=== PATIENT | female | born 1945 | race Caucasian/White ===

== ENCOUNTER 2016-11-08 21:54 | Inpatient (IN) | payer MEDICARE, BC ==
[~2016-11-08] VITALS: Ht 165.1 cm; Wt 82.4 kg
[~2016-11-08 21:54] MED LIST: AMLO-218 PO; ASPI-664 PO; ERGO500014 PO; FENO145T25 PO; FOLI-49 PO; METO50TA16 PO; RIVA15TA PO; SIMV20TA PO
[2016-11-08] MEDS ORDERED: ASPIRIN 325 MG TAB PO ONE (23:00)
[2016-11-08] MEDS ORDERED: FUROSEMIDE 40 MG INJ IV ONE (23:00)
[2016-11-08] MEDS ORDERED: ENALAPRILAT 1.25 MG INJ IV ONE (23:00)
[2016-11-08 23:04] LABS: ADD SCAN DIFF NO
[2016-11-08 23:12] LABS: ABNORMAL IP MESSAGE 1; HEMATOCRIT 36.3 % (37.0-47.0); HEMOGLOBIN 11.4 g/dl (12.0-16.0); MEAN CORPUSCULAR HEMOGLOBIN 30.2 pg (29.0-33.0); MEAN CORPUSCULAR HGB CONC 31.4 g/dl (32.0-37.0); MEAN PLATELET VOLUME 11.5 fl (7.4-10.4); PLATELET COUNT 150 10^3/UL (140-415); RED BLOOD COUNT 3.78 10^6/ul (4.20-5.40); RED CELL DISTRIBUTION WIDTH 14.1 % (11.5-14.5); WHITE BLOOD COUNT 4.6 10^3/ul (4.8-10.8)
[2016-11-08] MEDS ORDERED: CLON0.2T5 PO (23:18)
[2016-11-08] MEDS ORDERED: ISOS40TA15 PO (23:19)
[2016-11-08] MEDS ORDERED: METO10TA6 PO (23:20)
[2016-11-08] MEDS ORDERED: NAPR-688 PO (23:20)
[2016-11-08] MEDS ORDERED: PRAM0.25 PO (23:21)
[2016-11-08] MEDS ORDERED: ATOR40TA68 PO (23:21)
[2016-11-08] MEDS ORDERED: WARF4TAB52 PO (23:21)
--- NOTE | 2016-11-08 23:21 | ERA ---
ER Documentation Chief Complaint Date/Time DATE: 11/08/16 TIME: 23:14 Chief Complaint shortness of breath, denies chest pain, sp cabg x 4 vessels 2007 HPI 71-year-old woman presents for shortness of breath, increased orthopnea, increased peripheral edema, paroxysmal nocturnal dyspnea 2 weeks although worse over the last 3 days. She has had no fever or chills, no chest pain, no vomiting or diarrhea, no headache or blurry vision. ROS All systems reviewed and are negative except as per history of present illness. Medications Home Meds Reported Medications Hydralazine Hcl* (Hydralazine Hcl*) 50 Mg Tab, 50 MG PO TID, #90 TAB 11/08/16 Ranolazine* (Ranexa*) 500 Mg Tab.sr.12h, 500 MG PO Q12, TAB 11/08/16 Ezetimibe* (Zetia*) 10 Mg Tablet, 10 MG PO DAILY, TAB 11/08/16 Pramipexole* (Pramipexole*) 0.25 Mg Tablet, 0.25 MG PO TID, TAB 11/08/16 Atorvastatin* (Atorvastatin*) 40 Mg Tablet, 40 MG PO QHS, #30 TAB 11/08/16 Warfarin Sodium* (Warfarin Sodium*) 4 Mg Tablet, 4 MG PO DAILY, TAB 11/08/16 Naproxen* (Naproxen*) 500 Mg Tablet, 500 MG PO BID, TAB 11/08/16 Metolazone* (Metolazone*) 10 Mg Tablet, 10 MG PO DAILY, TAB 11/08/16 Isosorbide Dinitrate* (Isordil*) 40 Mg Tablet, 40 MG PO BID, TAB 11/08/16 Clonidine Hcl* (Clonidine Hcl*) 0.2 Mg Tablet, 0.2 MG PO Q8 Y for PRN, TAB 11/08/16 Metoprolol Succinate* (Toprol XL*) 50 Mg Tab.er.24h, 50 MG PO DAILY, TAB 02/17/15 Fenofibrate Nanocrystallized* (Tricor*) 145 Mg Tablet, 145 MG PO DAILY 05/15/11 Discontinued Reported Medications Aspirin* (Aspirin* EC) 81 Mg Tablet.dr, 81 MG PO DAILY, TAB 02/17/15 Ergocalciferol* (Drisdol* (Vitamin D2)) 50,000 Unit Capsule, 71514 UNIT PO EVERY 14 DAYS, CAP 02/17/15 Folic Acid* (Folic Acid*) 1 Mg Tablet, 1 MG PO DAILY 05/15/11 Simvastatin* (Zocor*) 20 Mg Tablet, 20 MG PO DAILY 05/15/11 Discontinued Scripts Amlodipine Besylate* (Norvasc*) 10 Mg Tab, 10 MG PO DAILY, #20 Prov:KDDIOGENES IQBALY REHAB TRAINER 02/20/15 Rivaroxaban* (Xarelto*) 15 Mg Tablet, 15 MG PO WITH BREAKFAST, #20 Prov:SHERYLALBAN REHAB TRAINER 02/20/15 Allergies Allergies: Coded Allergies: No Known Allergy (Verified , 11/08/16) PMhx/Soc Anxiety, chronic kidney disease, coronary artery disease status post coronary bypass graft, DVT, anemia, hypertension, atrial fibrillation, pulmonary hypertension, congestive heart failure History of Surgery: Yes (s/p LAD rupture, cardicac tamponade and CABG) Anesthesia Reaction: No Hx Neurological Disorder: Yes (SOMETIMES SHE FEELS DIZZY AND ALMOST WANTS TO PASSED OUT) Hx Respiratory Disorders: No Hx Cardiac Disorders: Yes (HTN,CABG-2007,HIGH CHOLESTEROL) Hx Psychiatric Problems: No Hx Miscellaneous Medical Probl: Yes (cardiac arrest, osteoprosis, htn) Hx Alcohol Use: No Hx Substance Use: No Hx Tobacco Use: No Smoking Status: Never smoker FmHx Family History: No diabetes Physical Exam Vitals Vital Signs Date Time Temp Pulse Resp B/P Pulse Ox O2 Delivery O2 Flow Rate FiO2 11/08/16 22:54 Nasal Cannula 3.0 11/08/16 21:59 98.3 96 20 189/91 94 Physical Exam GENERAL: Well-developed, well-nourished, well-hydrated, in no apparent distress , looks nontoxic in appearance HEENT: Moist mucous membranes, pink conjunctiva, no cervical spine tenderness or step-off deformities, no goiter, no jaundice or icterus, extraocular movements intact without pain. No submandibular induration, and no pharyngeal erythema NEURO: Alert and oriented 3, cranial nerves II through XII intact bilaterally, pupils equal round reactive to light, no focal deficits or facial asymmetry, sensation intact distally Strength 5/5 in upper and lower extremities bilaterally CARDIAC: Regular rate and rhythm, no murmurs rubs or gallops LUNGS: Crackles bilaterally, no wheezing or stridor ABDOMEN: Soft nontender, no guarding, no rigidity, no rebound, no psoas sign no obturator sign. Normoactive bowel sounds SKIN: Warm and dry to touch, no abrasions, contusions, or hematomas, no lacerations, no ecchymosis, no target lesions, and without ulcers EXTREMITIES: 3+ pitting edema in the lower extremities bilaterally calves are bilaterally symmetrical, no Homans sign, no popliteal cord sign. Distal pulses equal and bilateral PSYCH: Normal affect without agitation or irritability Result Diagram: 11/08/16223911/08/162239 Results 24 hrs Laboratory Tests Test 11/08/16 22:40 White Blood Count 4.610^3/ul Red Blood Count 3.7810^6/ul Hemoglobin 11.4g/dl Hematocrit 36.3% Mean Corpuscular Volume 96.0fl Mean Corpuscular Hemoglobin 30.2pg Mean Corpuscular Hemoglobin Concent 31.4g/dl Red Cell Distribution Width 14.1% Platelet Count 78158^3/UL Mean Platelet Volume 11.5fl Neutrophils % 91.0% Lymphocytes % 8.0% Monocytes % 1.0% Neutrophils # 4.210^3/ul Lymphocytes # 0.410^3/ul Monocytes # 0.010^3/ul Differential Comment MANUAL DIFF Platelet Estimate PLT APPEAR ADEQUATE Large Platelets FEW Sodium Level 140mmol/L Potassium Level 4.8mmol/L Chloride Level 100mmol/L Carbon Dioxide Level 25mmol/L Anion Gap 20 Blood Urea Nitrogen 34mg/dl Creatinine 2.07mg/dl Glucose Level 137mg/dl Calcium Level 9.7mg/dl Total Bilirubin 0.9mg/dl Direct Bilirubin 0.00mg/dl Indirect Bilirubin 0.9mg/dl Aspartate Amino Transf (AST/SGOT) 30IU/L Alanine Aminotransferase (ALT/SGPT) 24IU/L Alkaline Phosphatase 106IU/L Troponin I 0.063ng/ml B-Type Natriuretic Peptide 68463HL/ML Total Protein 7.8g/dl Albumin 4.4g/dl Globulin 3.40g/dl Albumin/Globulin Ratio 1.29 Lipase 159U/L Current Medications Medications (Trade) Dose Ordered Sig/Glenny Route PRN Reason Start Time Stop Time Status Last Admin Dose Admin Furosemide (Lasix) 80 mg ONCE ONCE IV 11/08/16 23:00 11/08/16 23:01 DC 11/08/16 23:16 Enalaprilat (Vasotec Iv) 1.25 mg ONCE ONCE IV 11/08/16 23:00 11/08/16 23:01 DC 11/08/16 23:16 Aspirin (Aspirin) 325 mg ONCE ONCE PO 11/08/16 23:00 11/08/16 23:01 DC 11/08/16 23:16 Procedures/MDM IV line was established patient was placed on acute care registered nurse rhythm strip revealed an irregular narrow complex rhythm at about 80 bpm. Patient was afebrile. EKG performed, read by me revealed an atrial fibrillation at 82 bpm, normal axis , narrow QRS complex, no concerning ST elevations or depressions noted. One view chest x-ray performed, read by me there are sternotomy wires and cardiomegaly with bilateral pleural effusions and bilateral vascular pulmonary congestion. Overall consistent with decompensated heart failure, no acute infiltrates. I administered aspirin 325 mg p.o. for cardioprotective measures, enalapril 1.25 mg IV for hypertension, furosemide 80 mg IV 1 for diuresis, nitroglycerin 0.4 mg sublingual 2 Cardiac critical Care: Time: 37 minutes, this was time separate from other procedures. Treatments/Evaluations: Close monitoring and treatment of unstable vital signs, cardiorespiratory, and neurologic status, while maintaining tight balance of fluid, respiratory, and cardiac interventions. CBC reveals leukopenia 4.6, electrolytes revealed dehydration with a BUN/ creatinine of 34/2, liver function tests are normal, troponin was negative. BNP over 17,000. Patient admitted to telemetry setting. Departure Diagnosis: Primary Impression: CHF (congestive heart failure) Qualified Code: I50.21 - Acute systolic congestive heart failure Additional Impressions: Pulmonary hypertension Hypertension Qualified Code: I10 - Essential hypertension Peripheral edema Condition: Serious OWEN BUCKLEY MD Nov 08, 2016 23:21
[2016-11-08] MEDS ORDERED: RANO500T2 PO (23:22)
[2016-11-08] MEDS ORDERED: EZET10TA3 PO (23:22)
[2016-11-08] MEDS ORDERED: HYDR-3672 PO (23:23)
[2016-11-08 23:30] LABS: ALBUMIN 4.4 g/dl (3.3-4.9)
[2016-11-08] MEDS ORDERED: NITROGLYCERIN (SL) 0.4 MG TAB SL ONE (23:30)
[2016-11-08 23:31] LABS: POTASSIUM 4.8 mmol/L (3.5-5.1)
[2016-11-08 23:33] LABS: ALBUMIN/GLOBULIN RATIO 1.29; BILIRUBIN,INDIRECT 0.9 mg/dl (0-1.1); BILIRUBIN,TOTAL 0.9 mg/dl (0.2-1.3); CALCIUM 9.7 mg/dl (8.4-10.2); CREATININE 2.07 mg/dl (0.44-1.00); TOTAL PROTEIN 7.8 g/dl (6.1-8.1)
--- NOTE | 2016-11-08 23:35 | RADRPT ---
PROCEDURE: XR Chest. CLINICAL INDICATION: Abdominal pain. TECHNIQUE: Single frontal view of the chest was obtained COMPARISON: Chest dated 02/17/2015. FINDINGS: Cardiomegaly and tortuous thoracic aorta with mild atherosclerotic calcifications in the thoracic ao rta. Pulmonary vascular ingestion and patchy air space disease is new. New bilateral mild to moder ate pleural effusions, left greater than right. No evident pneumothorax. IMPRESSION: 1. Mild to moderate failure. 2. Bilateral mild to moderate pleural effusions and new, left greater than right. RPTAT: [facility] Physician Lona Date Time Electronically viewed and signed by Physician Lona on 11/08/2016 23:35 RS/
[2016-11-08 23:38] LABS: TROPONIN-I 0.063 ng/ml (0.00-0.12)
[2016-11-09] VITALS (14 sets, daily range): BP systolic 104–195; BP diastolic 53–89; PULSE 63–89; RESP 18–20; Ht 165.1 cm; Wt 82.4 kg
[2016-11-09 00:31] LABS: LYMPHOCYTES # 0.4 10^3/ul (0.8-2.9); NEUTROPHIL # 4.2 10^3/ul (1.6-7.5); PLATELET ESTIMATE PLT APPEAR ADEQUATE
--- NOTE | 2016-11-09 00:59 | HP ---
Date/Time of Note Date/Time of Note DATE: 11/09/16 TIME: 00:55 Assessment/Plan VTE Prophylaxis VTE Prophylaxis Intervention: ambulation, anti-embolic stocking VTE Contraindication Reason: peripheral vascular disease Lines/Catheters IV Catheter Type (from Nrsg): Saline Lock Central line still needed: No Urinary Cath still in place: No Reason Cath still needed: urinary retention Assessment/Plan Assessment/Plan 1. systolic and diastolic hear failure with acute exacerbation . 2. History of coronary artery disease with coronary artery bypass grafting. 3. History of cardiac arrest, status post ruptured left anterior descending. 4. History of cardiac tamponade. 5. Hypertension-resistant with episodes of crisis . 6. Hyperlipidemia. 7. Atrial fibrillation, rate controlled. 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 Cont'd Hospitalization Reason: chf HPI/ROS Admit Date/Time Admit Date/Time Severe sob.Worsened last 3 days. Compleate w/u by last month. Noncompliance confessed.Discussed with the daughter to communicate more frequently.Nov 08, 2016 at 23:12 Hx of Present Illness After diuresis in ER significant improvement of BP and sob. ROS Subjective hx not possible: pt critical status, other (now less critical.) Constitutional: chills, fatigue, nausea, poor po, weight change (gained 8 lb. ) Eyes: redness (after hydralyzine.), No discharge, No no complaints, No other, No pain, No visual change ENT: No bleeding, No congestion, No discharge, No dysphagia, No no complaints, No other, No pain, No sore throat Respiratory: cough, shortness of breath, wheezing (improved.), No no complaints, No other, No pain, No pleuritic pain, No sputum Cardiovascular: chest pain, edema, lightheadedness, orthopenea, palpitations, paroxysmal nocturnal dyspnea, No no complaints, No other Gastrointestinal: constipation, flatus, nausea, No blood, No decreased appetite, No diarrhea, No no complaints, No other, No pain, No passing stool, No vomiting Genitourinary: flank pain, No bleeding, No discharge, No dysuria, No hematuria, No no complaints, No other Musculoskeletal: back pain, bone/joint pain, neck pain, No no complaints, No other, No restricted range of motion, No swelling Skin: pruritis, No bruising, No erythema, No laceration, No no complaints, No other, No rash , No skin lesions Neurologic: dizziness, headache, No confusion, No focal-weakness, No no complaints, No other, No seizure, No syncope Endocrine: polydypsia, temp intolerance, No dry skin, No no complaints, No other, No polyuria, No weight change Lymphatic: No adenopathy, No lymphadema, No no complaints, No other, No tender nodes Psychological: anxiety, depression, other (memory impairment.), No confusion, No nl mood/affect, No no complaints, No suicidal Immunologic: pruritis, No immunodeficiency, No no complaints, No other, No rhinitis, No urticaria PMH/Family/Social Past Medical History Medical History: angina, colitis, congestive heart failure, coronary artery disease, deep vein thrombosis, diabetes, GERD, high cholesterol, hypertension, renal disease, urinary tract infection Past Surgical History Past Surgical Hx: angioplasty, coronary bypass surgery Family History Significant Family History: heart disease, diabetes, hypertension, lung disease Social History Alcohol Use: none Smoking Status: Never smoker Drug Use: none Exam/Review of Systems Vital Signs Vitals Vital Signs Date Time Temp Pulse Resp B/P Pulse Ox O2 Delivery O2 Flow Rate FiO2 11/09/16 00:36 180/89 Nasal Cannula 11/09/16 00:33 2.0 11/08/16 23:44 79 22 100 11/08/16 21:59 98.3 Exam Constitutional: alert, distress, frail, oriented, No non-verbal, No other, No well developed Psych: anxiety, depression, No confusion, No nl mood/affect, No no complaints, No other, No suicidal Head: atraumatic, No hematomas, No lacerations, No normocephalic, No other Eyes: EOMI, PERRL, nl lids, other (pale conjunctivas.) ENMT: nl nasal mucosa & septum, tympanic membranes Neck: bruits, jvd, nuchal rigidity, No masses, No non-tender, No other, No supple, No thyromegaly Respiratory: congested cough, crackles/rales, diminished breath sounds, labored breathing, tactile fremitus, No clear to auscultation, No intercostal retraction, No normal air movement, No other, No respirations, No wheezing Cardiovascular: bruits, edema, irregular rhythm, systolic murmur, No S3, No S4, No diastolic murmur, No gallop, No jugular venous distention ( JVD), No murmurs/extra sounds, No nl pulses, No other, No regular rate and rhythm, No rub Gastrointestinal: bowel sounds, distended, soft, No ascites, No firm, No hepatomegaly, No mass, No nl liver, spleen, No non- tender, No other, No rebound or guarding, No splenomegaly, No surgical scars, No tender Genitourinary - Female: other (refused. No complains.) Extremities: calf tenderness, edema, other (erythematouse rash of the tibial area left more than right with irregular borders jitendra size.), pitting pedal edema Neurological: HUMANITIES INSTRUCTOR II-XII intact (except cn#12.), DTR's symmetric, confused, numbness, other (decreased memory, anxious.) Labs Result Diagram: 11/08/16223911/08/16 2240 Medications Medications Current Medications Atorvastatin Calcium (Lipitor) 40 mg QHS PO ; Start 11/09/16 at 21:00; Status UNV Clonidine (Catapres) 0.2 mg Q8 PRN PO PRN; Start 11/09/16 at 01:00; Status UNV EZETIMIBE (Zetia) 10 mg DAILY PO ; Start 11/09/16 at 09:00; Status UNV Fenofibrate (Tricor) 145 mg DAILY PO ; Start 11/09/16 at 09:00; Status UNV Hydralazine HCl (Apresoline) 50 mg TID PO ; Start 11/09/16 at 09:00; Status UNV Metolazone (Zaroxolyn) 10 mg BID PO ; Start 11/09/16 at 01:00; Status UNV Metoprolol Succinate (Toprol Xl) 50 mg DAILY PO ; Start 11/09/16 at 09:00; Status UNV Ranolazine (Ranexa) 500 mg Q12 PO ; Start 11/09/16 at 01:00; Status UNV Warfarin Sodium (Coumadin) 4 mg DAILY PO ; Start 11/09/16 at 09:00; Status UNV Losartan Potassium (Cozaar) 50 mg BID PO ; Start 11/09/16 at 01:00; Status UNV Pantoprazole (Protonix Tab) 40 mg DAILY@06 PO ; Start 11/09/16 at 06:00; Status UNV LAURA DENT MD Nov 09, 2016 00:59
[2016-11-09] MEDS ORDERED: METOLAZONE 10 MG TAB PO SCH (01:00)
[2016-11-09] MEDS: ALBUTEROL/IPRATROPIUM (NEB) 3 ML AMP HHN SCH ×4 (01:24→19:38)
[2016-11-09] MEDS: LOSARTAN 50 MG TAB PO SCH ×2 (02:27→08:56)
[2016-11-09] MEDS: METOLAZONE 5 MG TAB PO SCH ×2 (02:27→08:58)
[2016-11-09] MEDS: RANOLAZINE (SR) 500 MG TAB PO SCH ×3 (02:27→20:57)
[2016-11-09 08:15] LABS: INR 2.67; POTASSIUM 4.6 mmol/L (3.5-5.1); PROTIME 28.8 Sec (12.2-14.2); PT RATIO 2.3
[2016-11-09 08:18] LABS: CREATININE 2.06 mg/dl (0.44-1.00); D-DIMER 305.27 ng/ml (<460)
[2016-11-09 08:19] LABS: CALCIUM 9.3 mg/dl (8.4-10.2)
[2016-11-09 08:30] LABS: TROPONIN-I 0.094 ng/ml (0.00-0.12)
[2016-11-09 08:41] LABS: IRON 46 ug/dl (35-150)
[2016-11-09 08:49] LABS: THYROID STIMULATING HORMONE 1.46 MIU/L (0.465-4.680)
[2016-11-09 08:51] LABS: TOTAL IRON BINDING CAPACITY 344 ug/dl (241-421)
[2016-11-09] MEDS: FENOFIBRATE 145 MG TAB PO SCH (08:57)
[2016-11-09] MEDS: EZETIMIBE 10 MG TAB PO SCH (08:58)
[2016-11-09] MEDS: PANTOPRAZOLE (EC) 40 MG TAB PO SCH (08:59)
[2016-11-09] MEDS ORDERED: METOPROLOL (XL) 50 MG TAB PO SCH ×2 (09:00)
[2016-11-09] MEDS ORDERED: WARFARIN 2 MG TAB PO SCH (09:00)
--- NOTE | 2016-11-09 11:17 | RADRPT ---
PROCEDURE: US Lower extremity Venous. CLINICAL INDICATION: Bilateral lower extremity swelling TECHNIQUE: Multiple sonographic images of the bilateral lower extremity deep venous system was obt ained utilizing grayscale, color-flow, compressive sonography and doppler imaging with augmentation. The images were reviewed on a PACS workstation. COMPARISON: None. FINDINGS: There is normal compressibility and flow within the bilateral common femoral, superficial femoral , posterior tibial and popliteal veins. RPTAT: AA IMPRESSION: No sonographic evidence for deep venous thrombosis. .Arnoldo Suresh MD, MD Date Time Electronically viewed and signed by .Arnoldo Suresh MD, on 11/09/2016 11:17 .S/
[2016-11-09 11:42] LABS: ADD UMIC YES; URINE BILIRUBIN (Dip) NEGATIVE (NEGATIVE); URINE BLOOD (Dip) NEGATIVE (NEGATIVE); URINE COLOR LT. YELLOW (YELLOW); URINE GLUCOSE (Dip) NEGATIVE (NEGATIVE); URINE KETONES (Dip) NEGATIVE (NEGATIVE); URINE LEUKOCYTE ESTERASE (Dip) NEGATIVE (NEGATIVE); URINE NITRITE (Dip) NEGATIVE (NEGATIVE); URINE TOTAL PROTEIN (Dip) 1+ (NEGATIVE); URINE UROBILINOGEN (Dip) 0.2 E.U./dL (0.1-1.0)
[2016-11-09 11:52] LABS: BACTERIA,URINE RARE; URINE RBCS 0-2 /HPF (0)
[2016-11-09 11:53] LABS: BARBITURATES Negative (NEGATIVE)
[2016-11-09 11:58] LABS: BENZODIAZEPINES Negative (NEGATIVE); CANNABINOIDS Negative (NEGATIVE); COCAINE Negative (NEGATIVE); OPIATES Negative (NEGATIVE)
--- NOTE | 2016-11-09 12:48 | PN ---
Date/Time of Note Date/Time of Note DATE: 11/09/16 TIME: 12:47 Assessment/Plan VTE Prophylaxis VTE Prophylaxis Intervention: ambulation, anti-embolic stocking VTE Contraindication Reason: peripheral vascular disease Lines/Catheters IV Catheter Type (from Nrsg): Saline Lock Urinary Cath still in place: No Assessment/Plan Assessment/Plan 1. systolic and diastolic hear failure with acute exacerbation . 2. History of coronary artery disease with coronary artery bypass grafting. 3. History of cardiac arrest, status post ruptured left anterior descending. 4. History of cardiac tamponade. 5. Hypertension-resistant with episodes of crisis . 6. Hyperlipidemia. 7. Atrial fibrillation, rate controlled. 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 Subjective 24 Hr Interval Summary Free Text/Dictation improved sob. Constitutional: chills, disoriented, poor po, requiring O2, No diaphoresis, No febrile, No improved, No no complaints, No other, No requiring IVF Eyes: No discharge, No no complaints, No other, No pain, No redness, No visual change ENT: congestion, dysphagia, pain, No bleeding, No discharge, No no complaints, No other, No sore throat Respiratory: cough, pleuritic pain, shortness of breath, No no complaints, No other, No pain, No sputum, No wheezing Cardiovascular: chest pain, edema, lightheadedness, orthopenea, palpitations, paroxysmal nocturnal dyspnea, No no complaints, No other Gastrointestinal: constipation, decreased appetite, pain Genitourinary: dysuria, flank pain Musculoskeletal: back pain, neck pain, No bone/joint pain, No no complaints, No other, No restricted range of motion , No swelling Neurologic: confusion, dizziness, No focal-weakness, No headache, No no complaints, No other, No seizure, No syncope Endocrine: dry skin Psychological: anxiety, confusion, depression, No nl mood/affect, No no complaints, No other, No suicidal Exam/Review of Systems Vital Signs Vitals Vital Signs Date Time Temp Pulse Resp B/P Pulse Ox O2 Delivery O2 Flow Rate FiO2 11/09/16 12:04 63 11/09/16 11:34 98.6 20 104/54 96 11/09/16 09:58 Nasal Cannula 2.0 Intake and Output 11/08/16 11/08/16 11/09/16 14:59 22:59 06:59 Intake Total 100 ml Output Total 2000 ml Balance -1900 ml Exam Constitutional: alert, distress, frail, obese, oriented, No non-verbal, No other, No well developed Psych: anxiety, depression, No confusion, No nl mood/affect, No no complaints, No other, No suicidal Head: atraumatic Eyes: EOMI, PERRL, No fundi, disc, No icteric, No nl conjunctiva, No nl lids, No nl sclera, No other ENMT: mucosa pink and moist, nl nasal mucosa & septum, tympanic membranes Neck: bruits, jvd, nuchal rigidity Respiratory: congested cough, diminished breath sounds, intercostal retraction , No clear to auscultation, No crackles/rales, No labored breathing, No normal air movement, No other, No respirations, No tactile fremitus, No wheezing Cardiovascular: bruits, edema, irregular rhythm, nl pulses, regular rate and rhythm, systolic murmur, No S3, No S4, No diastolic murmur, No gallop, No jugular venous distention ( JVD), No murmurs/extra sounds, No other, No rub Gastrointestinal: distended, nl liver, spleen, No ascites, No bowel sounds, No firm, No hepatomegaly, No mass, No non-tender , No other, No rebound or guarding, No soft, No splenomegaly, No surgical scars , No tender Musculoskeletal: joint tenderness, muscle tone, muscle weakness, range of motion Extremities: calf tenderness, edema, No clubbing, No cyanosis, No normal pulses, No other, No palpable cord, No pitting pedal edema, No tenderness Neurological: No FINANCIAL CONTROLLER II-XII intact, No DTR's symmetric, No confused, No focal weakness, No lethargic, No nl mental status, No nl speech, No nl strength, No numbness, No other, No reflexes, No unresponsive Skin: other (folded over ankles and feet.), No diaphoresis, No ecchymosis, No laceration, No nl turgor, No puncture, No rash or lesions Lymph: No enlarged, No nl lymph nodes, No nontender, No other Results Result Diagram: 11/08/16 2240 11/09/16 0639 Results 24 hrs Laboratory Tests Test 11/08/16 22:40 11/09/16 06:39 11/09/16 11:02 White Blood Count 4.6 #L Red Blood Count 3.78 L Hemoglobin 11.4 L Hematocrit 36.3 L Mean Corpuscular Volume 96.0 Mean Corpuscular Hemoglobin 30.2 Mean Corpuscular Hemoglobin Concent 31.4 L Red Cell Distribution Width 14.1 Platelet Count 150 Mean Platelet Volume 11.5 #H Neutrophils % 91.0 H Lymphocytes % 8.0 L Monocytes % 1.0 Neutrophils # 4.2 Lymphocytes # 0.4 L Monocytes # 0.0 L Differential Comment MANUAL DIFF Platelet Estimate PLT APPEAR ADEQUATE Large Platelets FEW Sodium Level 140 135 Potassium Level 4.8 4.6 Chloride Level 100 103 Carbon Dioxide Level 25 26 Anion Gap 20 H 11 # Blood Urea Nitrogen 34 H 35 H Creatinine 2.07 H 2.06 H Glucose Level 137 90 # Calcium Level 9.7 9.3 Total Bilirubin 0.9 Direct Bilirubin 0.00 Indirect Bilirubin 0.9 Aspartate Amino Transf (AST/SGOT) 30 Alanine Aminotransferase (ALT/SGPT) 24 Alkaline Phosphatase 106 Troponin I 0.063 0.094 B-Type Natriuretic Peptide 09910 H Total Protein 7.8 Albumin 4.4 Globulin 3.40 H Albumin/Globulin Ratio 1.29 Lipase 159 Prothrombin Time 28.8 H Prothrombin Time Ratio 2.3 INR International Normalized Ratio 2.67 D-Dimer 305.27 D-Dimer Comment Magnesium Level 2.0 Iron Level 46 Total Iron Binding Capacity 344 Percent Iron Saturation 13 L Thyroid Stimulating Hormone (TSH) 1.460 Digoxin Level < 0.4 L Urine Color LT. YELLOW Urine Clarity CLEAR Urine pH 5.5 Urine Specific Downey 1.020 Urine Ketones NEGATIVE Urine Nitrite NEGATIVE Urine Bilirubin NEGATIVE Urine Urobilinogen 0.2 E.U./dL Urine Leukocyte Esterase NEGATIVE Urine Microscopic RBC 0-2 Urine Microscopic WBC 0-2 Urine Epithelial Cells OCCASIONAL Urine Bacteria RARE Urine Hemoglobin NEGATIVE Urine Glucose NEGATIVE Urine Total Protein 1+ H Urine Opiates Screen Negative Urine Barbiturates Negative Urine Amphetamines Screen Negative Urine Benzodiazepines Screen Negative Urine Cocaine Screen Negative Urine Cannabinoids Negative Medications Medications Current Medications Atorvastatin Calcium (Lipitor) 40 mg QHS PO ; Start 11/09/16 at 21:00 Clonidine (Catapres) 0.2 mg Q8 PRN PO ELEVATED BLOOD PRESSURE>150; Start at 01:00 EZETIMIBE (Zetia) 10 mg DAILY PO Last administered on 11/09/16 08:58; Admin Dose 10 MG; Start 11/09/16 at 09:00 Fenofibrate (Tricor) 145 mg DAILY PO Last administered on 11/09/16 08:57; Admin Dose 145 MG; Start 11/09/16 at 09:00 Hydralazine HCl (Apresoline) 50 mg TID PO Last administered on 11/09/16 08:56; Admin Dose 50 MG; Start 11/09/16 at 09:00 Ranolazine (Ranexa) 500 mg Q12 PO Last administered on 11/09/16 08:56; Admin Dose 500 MG; Start 11/09/16 at 01:00 Losartan Potassium (Cozaar) 50 mg BID PO Last administered on 11/09/16 08:56; Admin Dose 50 MG; Start 11/09/16 at 01:00 Pantoprazole (Protonix Tab) 40 mg DAILY@06 PO Last administered on 11/09/16 08: 59; Admin Dose 40 MG; Start 11/09/16 at 06:00 Metoprolol Succinate (Toprol Xl) 50 mg DAILY PO Last administered on 11/09/16 08:57; Admin Dose 50 MG; Start 11/09/16 at 09:00 Warfarin Sodium (Coumadin) 4 mg DAILY@17 PO ; Start 11/09/16 at 17:00 Metolazone (Zaroxolyn) 10 mg BID PO Last administered on 11/09/16 08:58; Admin Dose 10 MG; Start 11/09/16 at 02:00 LAURA DENT MD Nov 09, 2016 12:48
[2016-11-09] MEDS ORDERED: IPRATROPIUM (NEB) 0.5 MG/2.5 ML AMP HHN SCH (14:00)
--- NOTE | 2016-11-09 17:07 | CONS ---
Date/Time of Note Date/Time of Note DATE: 11/09/16 TIME: 16:50 Assessment/Plan Assessment/Plan Chief Complaint/Hosp Course Assessment: Acute on chronic diastolic heart failure Accelerated hypertension - blood pressures now improved Coronary artery disease - history of myocardial infarction with coronary rupture and subsequent CABG Dyslipidemia Chronic atrial fibrillation Chronic kidney disease Recommendations: -obtain transthoracic echocardiogram -continue diuresis - Lasix 40mg IV daily, discontinue metolazone for now -carvedilol 6.25mg BID -hydralazine 50mg TID and Imdur 30mg daily -continue ranolazine 500mg BID -continue atorvastatin 40mg daily - ? need for Zetia and Tricor (will defer to outpatient fish dressing machine feeder, Dr. Segovia) -continue warfarin with goal INR 2-3 Problems: Consultation Date/Type/Reason Admit Date/Time Sharonda canoNov 08, 2016 at 23:12 Type of Consultation: Cardiology Reason for Consultation congestive heart failure Hx of Present Illness The patient is a 71 year-old female who presents with worsening shortness of breath, orthopnea, and lower extremity swelling for the past three months. Chest x-ray [place] pulmonary [place] [address], consistent with decompensate heart failure. Lower extremity Dopplers are negative for deep vein thrombosis. She denies chest pain and troponins have been negative. She reports a recent normal cardiac stress test with her outpatient fish dressing machine feeder (Dr. Mark Segovia) in September 2016. She has a history of coronary artery disease and is status post coronary artery bypass graft surgery in 2008. She had a myocardial infarction at the time, and percutaneous coronary intervention was complicated by coronary rupture. She subsequently had bypass surgery. 14 point review of systems negative other than per HPI. Past Medical History Coronary artery disease - history of myocardial infarction with coronary rupture and subsequent CABG Chronic diastolic heart failure Hypertension Dyslipidemia Chronic atrial fibrillation Chronic kidney disease Past Surgical History Past Surgical Hx: coronary bypass surgery Family History Significant Family History: no pertinent family hx Social History Alcohol Use: none Smoking Status: Never smoker Drug Use: none Exam/Review of Systems Vital Signs Vitals Vital Signs Date Time Temp Pulse Resp B/P Pulse Ox O2 Delivery O2 Flow Rate FiO2 11/09/16 16:17 98.0 55 20 107/53 96 11/09/16 14:12 Nasal Cannula 2.0 Intake and Output 11/08/16 11/08/16 11/09/16 15:00 23:00 07:00 Intake Total 100 ml Output Total 2000 ml Balance -1900 ml Exam Constitutional: alert, well developed Psych: nl mood/affect, no complaints Head: atraumatic, normocephalic Eyes: nl conjunctiva, nl lids ENMT: nl external ears & nose, nl nasal mucosa & septum Neck: jvd, non-tender, supple Respiratory: crackles/rales, diminished breath sounds Cardiovascular: regular rate and rhythm, systolic murmur Gastrointestinal: non-tender, soft Extremities: edema, No clubbing, No cyanosis Neurological: nl mental status, nl speech Results Result Diagram: 11/08/16 2240 11/09/16 0639 Results 24 hrs Laboratory Tests Test 11/08/16 22:40 11/09/16 06:39 11/09/16 11:02 White Blood Count 4.6 #L Red Blood Count 3.78 L Hemoglobin 11.4 L Hematocrit 36.3 L Mean Corpuscular Volume 96.0 Mean Corpuscular Hemoglobin 30.2 Mean Corpuscular Hemoglobin Concent 31.4 L Red Cell Distribution Width 14.1 Platelet Count 150 Mean Platelet Volume 11.5 #H Neutrophils % 91.0 H Lymphocytes % 8.0 L Monocytes % 1.0 Neutrophils # 4.2 Lymphocytes # 0.4 L Monocytes # 0.0 L Differential Comment MANUAL DIFF Platelet Estimate PLT APPEAR ADEQUATE Large Platelets FEW Sodium Level 140 135 Potassium Level 4.8 4.6 Chloride Level 100 103 Carbon Dioxide Level 25 26 Anion Gap 20 H 11 # Blood Urea Nitrogen 34 H 35 H Creatinine 2.07 H 2.06 H Glucose Level 137 90 # Calcium Level 9.7 9.3 Total Bilirubin 0.9 Direct Bilirubin 0.00 Indirect Bilirubin 0.9 Aspartate Amino Transf (AST/SGOT) 30 Alanine Aminotransferase (ALT/SGPT) 24 Alkaline Phosphatase 106 Troponin I 0.063 0.094 B-Type Natriuretic Peptide 02825 H Total Protein 7.8 Albumin 4.4 Globulin 3.40 H Albumin/Globulin Ratio 1.29 Lipase 159 Prothrombin Time 28.8 H Prothrombin Time Ratio 2.3 INR International Normalized Ratio 2.67 D-Dimer 305.27 D-Dimer Comment Magnesium Level 2.0 Iron Level 46 Total Iron Binding Capacity 344 Percent Iron Saturation 13 L Thyroid Stimulating Hormone (TSH) 1.460 Digoxin Level < 0.4 L Urine Color LT. YELLOW Urine Clarity CLEAR Urine pH 5.5 Urine Specific [place] 1.020 Urine Ketones NEGATIVE Urine Nitrite NEGATIVE Urine Bilirubin NEGATIVE Urine Urobilinogen 0.2 E.U./dL Urine Leukocyte Esterase NEGATIVE Urine Microscopic RBC 0-2 Urine Microscopic WBC 0-2 Urine Epithelial Cells OCCASIONAL Urine Bacteria RARE Urine Hemoglobin NEGATIVE Urine Glucose NEGATIVE Urine Total Protein 1+ H Urine Opiates Screen Negative Urine Barbiturates Negative Urine Amphetamines Screen Negative Urine Benzodiazepines Screen Negative Urine Cocaine Screen Negative Urine Cannabinoids Negative Medications Medications Current Medications Atorvastatin Calcium (Lipitor) 40 mg QHS PO ; Start 11/09/16 at 21:00 Clonidine (Catapres) 0.2 mg Q8 PRN PO ELEVATED BLOOD PRESSURE>150; Start at 01:00 EZETIMIBE (Zetia) 10 mg DAILY PO Last administered on 11/09/16 08:58; Admin Dose 10 MG; Start 11/09/16 at 09:00 Fenofibrate (Tricor) 145 mg DAILY PO Last administered on 11/09/16 08:57; Admin Dose 145 MG; Start 11/09/16 at 09:00 Hydralazine HCl (Apresoline) 50 mg TID PO Last administered on 11/09/16 08:56; Admin Dose 50 MG; Start 11/09/16 at 09:00 Ranolazine (Ranexa) 500 mg Q12 PO Last administered on 11/09/16 08:56; Admin Dose 500 MG; Start 11/09/16 at 01:00 Pantoprazole (Protonix Tab) 40 mg DAILY@06 PO Last administered on 11/09/16 08: 59; Admin Dose 40 MG; Start 11/09/16 at 06:00 Metoprolol Succinate (Toprol Xl) 50 mg DAILY PO Last administered on 11/09/16 08:57; Admin Dose 50 MG; Start 11/09/16 at 09:00 Warfarin Sodium (Coumadin) 4 mg DAILY@17 PO ; Start 11/09/16 at 17:00 Losartan Potassium (Cozaar) 25 mg BID PO ; Start 11/09/16 at 21:00 Metolazone (Zaroxolyn) 10 mg DAILY@06 PO ; Start 11/10/16 at 06:00 TERRANCE OCAMPO MD Nov 09, 2016 17:03
[2016-11-09] MEDS ORDERED: hydrALAzine 20 MG INJ IV PRN (17:30)
[2016-11-09] MEDS: WARFARIN 2 MG TAB PO SCH (17:58)
[2016-11-09] MEDS: FUROSEMIDE 40 MG INJ IV SCH (18:03)
[2016-11-09] MEDS: SOD FERRIC GLUC COMPLX 125 MG in SOD CHLORIDE 0.9% 100 ML IVPB SCH (20:56)
[2016-11-09] MEDS ORDERED: LOSARTAN 50 MG TAB PO SCH (21:00)
[2016-11-09] MEDS: ATORVASTATIN 40 MG TAB PO SCH (21:00)
[2016-11-10] VITALS (12 sets, daily range): BP systolic 90–132; BP diastolic 52–68; PULSE 58–74; RESP 15–19
[2016-11-10] MEDS: ALBUTEROL/IPRATROPIUM (NEB) 3 ML AMP HHN SCH ×4 (02:00→20:00)
[2016-11-10] MEDS ORDERED: METOLAZONE 5 MG TAB PO SCH (06:00)
[2016-11-10] MEDS: PANTOPRAZOLE (EC) 40 MG TAB PO SCH (06:28)
[2016-11-10 06:34] LABS: ADD SCAN DIFF NO
[2016-11-10 06:43] LABS: BASOPHILS % 0.3 % (0.0-2.0); EOSINOPHILS # 0.1 10^3/ul (0.0-0.5); EOSINOPHILS % 2.8 % (0.0-7.0); HEMATOCRIT 29.8 % (37.0-47.0); HEMOGLOBIN 9.4 g/dl (12.0-16.0); LYMPHOCYTES # 0.9 10^3/ul (0.8-2.9); LYMPHOCYTES % 27.8 % (15.0-51.0); MEAN CORPUSCULAR HEMOGLOBIN 30.1 pg (29.0-33.0); MEAN CORPUSCULAR HGB CONC 31.5 g/dl (32.0-37.0); MEAN CORPUSCULAR VOLUME 95.5 fl (82.0-101.0); MEAN PLATELET VOLUME 11.2 fl (7.4-10.4); MONOCYTE # 0.2 10^3/ul (0.3-0.9); MONOCYTES % 7.3 % (0.0-11.0); NEUTROPHILS % 61.5 % (39.0-77.0); PLATELET COUNT 118 10^3/UL (140-415); RED BLOOD COUNT 3.12 10^6/ul (4.20-5.40); RED CELL DISTRIBUTION WIDTH 14.7 % (11.5-14.5); WHITE BLOOD COUNT 3.3 10^3/ul (4.8-10.8)
[2016-11-10 06:49] LABS: INR 4.04; PT RATIO 3.1
[2016-11-10 06:50] LABS: ALBUMIN 3.1 g/dl (3.3-4.9)
[2016-11-10 06:51] LABS: POTASSIUM 4.5 mmol/L (3.5-5.1)
[2016-11-10 06:53] LABS: ALBUMIN/GLOBULIN RATIO 1.14; BILIRUBIN,INDIRECT 0.5 mg/dl (0-1.1); BILIRUBIN,TOTAL 0.5 mg/dl (0.2-1.3); CREATININE 2.88 mg/dl (0.44-1.00); TOTAL PROTEIN 5.8 g/dl (6.1-8.1)
[2016-11-10 06:54] LABS: CALCIUM 8.5 mg/dl (8.4-10.2)
--- NOTE | 2016-11-10 07:39 | RADRPT ---
PROCEDURE: XR Chest. CLINICAL INDICATION: Shortness of breath. TECHNIQUE: Single frontal view. COMPARISON: 11/08/2016. FINDINGS: There is interstitial disease bilaterally in the mid and lower lung zones consistent with pulmonary edema, unchanged. Bibasilar atelectasis is also unchanged. The heart is enlarged. There are sternal wires. There are small bilateral pleural effusions. There is no pneumothorax. IMPRESSION: 1. No change from 11/08/2016. RPTAT: QQ .Anatoly Ames MD, MD Date Time Electronically viewed and signed by .Anatoly Ames MD, MD on 11/10/2016 07:39 .R/
[2016-11-10] MEDS: EZETIMIBE 10 MG TAB PO SCH (09:32)
[2016-11-10] MEDS: RANOLAZINE (SR) 500 MG TAB PO SCH ×2 (09:32→21:09)
[2016-11-10] MEDS: ISOSORBIDE MONONITRATE(SR)30 MG TAB PO SCH (09:32)
[2016-11-10] MEDS: FUROSEMIDE 40 MG INJ IV SCH (09:33)
[2016-11-10] MEDS: FENOFIBRATE 145 MG TAB PO SCH (09:36)
--- NOTE | 2016-11-10 14:10 | RADRPT ---
Echocardiogram Report Patient Name: ANDREINA GOYAL Gender: Female Date: 1945 Study Date: 10-Nov-2016 Log Cooker: Emi Kimbrough [facility] Location: 5541 Ref. Physician: LAURA DENT Quality: Good Procedures: Transthoracic echocardiogram with complete 2D, M-Mode, and doppler examination. Indications: Congestive Heart Failure. 2D/M Mode Doppler Measurement Value Normal Ranges Measurement Value Normal Ranges LVIDd 2D 4.0 3.5 - 5.6 cm EDUARDO Vmax 1.9 cm2 LVIDs 2D 3.1 2.1 - 4.1 cm EDUARDO VTI 1.9 cm2 LVPWd 2D 1.0 0.6 - 1.1 cm AV Mean Ranjit 1.5 m/sec IVSd 2D 1.1 0.6 - 1.1 cm AV Mean PG 11.7 mmHg AoR Diam 2D 2.5 2.0 - 3.7 cm AV Peak Ranjit 2.6 m/sec EDV 2D 68.4 cm3 AV Peak PG 27.4 mmHg ESV 2D 30.6 cm3 AV VTI 51.4 cm LA Dimen 2D 3.9 2.3 - 4.0 cm LVOT Mean Ranjit 1.0 m/sec LVOT Diam 2.1 cm LVOT Mean PG 4.5 mmHg LVOT Peak Ranjit 1.4 m/sec LVOT Peak PG 7.7 mmHg LVOT VTI 28.1 cm MV E Peak Ranjit 1.2 m/sec MV A Peak Ranjit 0.5 m/sec MV E/A 2.2 MV Decel Time 164 msec MV Decel [place] 7 MV E/A 2.2 TR Peak Ranjit 3.4 m/sec TR Peak PG 46.0 mmHg RVSP 61.0 mmHg Findings Left Ventricle: Normal left ventricular cavity size. Mild concentric left ventricular hypertrophy. Moderate left ventricular systolic dysfunction. Ejection fraction is visually estimated at 3540 %. Tissue Doppler/Mitral Doppler indices are consistent with restrictive physiology with markedly elevated left atrial pressure (Stage IIIIV diastolic dysfunction). These segments of the LV are dyskinetic septum base segment, mid septum segment, basal anterior segment, mid anterior segment, anterior apex segment, anteroseptum base segment and anteroseptum mid segment. Right Ventricle: Normal right ventricular size. Normal right ventricular systolic function. Left Atrium: There is moderate enlargement of left atrium. Right Atrium: There is mild enlargement of right atrium. Mitral Valve: Mitral valve leaflets appear mildly thickened. Moderate mitral annular calcification. Mild mitral valve regurgitation. Aortic Valve: Mild aortic stenosis. Aortic valve Max velocity 2.62 m/sec. Max PG 27.40 mmHg. Mean PG 11.70 mmHg. Aortic valve area 2.00 cm2. Aortic cusps appear mildly calcified. Mild aortic valve regurgitation. Tricuspid Valve: Normal appearance of the tricuspid valve. Estimated peak PA systolic pressure 61 mmHg. There is moderate tricuspid regurgitation. Pulmonic Valve: Normal pulmonic valve appearance. Pericardium: Left pleural effusion seen. Aorta: Normal aortic root. IVC: Dilated IVC without respiratory collapse consistent with elevated right atrial pressure. Conclusions The left ventricle is normal in size with moderately reduced systolic function. The septum and anterior wall are dyskinetic. Estimated left ventricular ejection fraction of 35-40%. Mild concentric left ventricular hypertrophy. Severe left ventricular diastolic dysfunction. Mild aortic stenosis. Bi-atrial enlargement. Pulmonary hypertension with estimated RVSP of 61 mmHg. Electronically Signed By: Issa Burns 10-Nov-2016 14:09:44 -0700 Patient Name: ANDREINA GOYAL Study Date: 10-Nov-2016 [id number]
--- NOTE | 2016-11-10 16:47 | CONS ---
Date/Time of Note Date/Time of Note DATE: 11/10/16 TIME: 16:40 Assessment/Plan Assessment/Plan Chief Complaint/Hosp Course Assessment: Acute on chronic combined systolic/diastolic heart failure - improving with diuresis Ischemic cardiomyopathy, LVEF 35-40% Coronary artery disease - history of myocardial infarction with coronary rupture and subsequent CABG Accelerated hypertension - blood pressures now improved and with hypotension Mild aortic stenosis Dyslipidemia Chronic atrial fibrillation Chronic kidney disease Recommendations: -echocardiogram showed LVEF 35-40% with septal and anterior wall dyskinesis, severe diastolic dysfunction, mild aortic stenosis, RVSP 61 mmHg -change Lasix to 40mg PO daily, monitor renal function -decrease hydralazine to 25mg TID, continue Imdur 30mg daily -continue carvedilol 6.25mg BID -continue ranolazine 500mg BID -continue atorvastatin 40mg daily - ? need for Zetia and Tricor (will defer to outpatient president/gm production & live experiences, Dr. Segovia) -continue warfarin with goal INR 2-3 Problems: Consultation Date/Type/Reason Admit Date/Time Nov 08, 2016 at 23:12 Initial Consult Date Type of Consultation: Cardiology 24 HR Interval Summary Free Text/Dictation Shortness of breath improving. Now with episode of low blood pressure. Detailed Summary Additional Comments 14 point review of systems without changes. Exam/Review of Systems Vital Signs Vitals Vital Signs Date Time Temp Pulse Resp B/P Pulse Ox O2 Delivery O2 Flow Rate FiO2 11/10/16 16:14 71 11/10/16 16:04 98.4 16 106/55 93 11/10/16 15:29 2.0 11/09/16 21:00 Nasal Cannula Intake and Output 11/09/16 11/09/16 11/10/16 15:00 23:00 07:00 Intake Total 1070 ml 200 ml Output Total 1600 ml 1400 ml Balance -530 ml -1200 ml Exam Constitutional: alert, well developed Psych: nl mood/affect, no complaints Head: atraumatic, normocephalic Eyes: nl conjunctiva, nl lids ENMT: nl external ears & nose, nl nasal mucosa & septum Neck: jvd, non-tender, supple Respiratory: crackles/rales, diminished breath sounds Cardiovascular: regular rate and rhythm, systolic murmur Gastrointestinal: non-tender, soft Extremities: edema, No clubbing, No cyanosis Neurological: nl mental status, nl speech Results Result Diagram: 11/10/16 0620 11/10/16 0620 Results 24 hrs Laboratory Tests Test 11/10/16 06:20 11/10/16 08:40 White Blood Count 3.3 #L Red Blood Count 3.12 L Hemoglobin 9.4 L Hematocrit 29.8 L Mean Corpuscular Volume 95.5 Mean Corpuscular Hemoglobin 30.1 Mean Corpuscular Hemoglobin Concent 31.5 L Red Cell Distribution Width 14.7 H Platelet Count 118 #L Mean Platelet Volume 11.2 H Neutrophils % 61.5 Lymphocytes % 27.8 Monocytes % 7.3 Eosinophils % 2.8 Basophils % 0.3 Nucleated Red Blood Cells % 0.0 Neutrophils # 2.0 Lymphocytes # 0.9 Monocytes # 0.2 L Eosinophils # 0.1 Basophils # 0.0 Nucleated Red Blood Cells # 0.0 Prothrombin Time 40.0 #H Prothrombin Time Ratio 3.1 INR International Normalized Ratio 4.04 Sodium Level 133 L Potassium Level 4.5 Chloride Level 99 Carbon Dioxide Level 28 Anion Gap 11 Blood Urea Nitrogen 43 H Creatinine 2.88 H Glucose Level 105 Calcium Level 8.5 Total Bilirubin 0.5 Direct Bilirubin 0.00 Indirect Bilirubin 0.5 Aspartate Amino Transf (AST/SGOT) 22 Alanine Aminotransferase (ALT/SGPT) 20 Alkaline Phosphatase 67 B-Type Natriuretic Peptide 20811 H Total Protein 5.8 #L Albumin 3.1 #L Globulin 2.70 Albumin/Globulin Ratio 1.14 Bedside Glucose 118 Medications Medications Current Medications Atorvastatin Calcium (Lipitor) 40 mg QHS PO Last administered on 11/09/16 21:00 ; Admin Dose 40 MG; Start 11/09/16 at 21:00 EZETIMIBE (Zetia) 10 mg DAILY PO Last administered on 11/10/16 09:32; Admin Dose 10 MG; Start 11/09/16 at 09:00 Fenofibrate (Tricor) 145 mg DAILY PO Last administered on 11/10/16 09:36; Admin Dose 145 MG; Start 11/09/16 at 09:00 Hydralazine HCl (Apresoline) 50 mg TID PO Last administered on 11/10/16 09:32; Admin Dose 50 MG; Start 11/09/16 at 09:00 Ranolazine (Ranexa) 500 mg Q12 PO Last administered on 11/10/16 09:32; Admin Dose 500 MG; Start 11/09/16 at 01:00 Pantoprazole (Protonix Tab) 40 mg DAILY@06 PO Last administered on 11/10/16 06: 28; Admin Dose 40 MG; Start 11/09/16 at 06:00 Warfarin Sodium (Coumadin) 4 mg DAILY@17 PO Last administered on 11/09/16 17:58 ; Admin Dose 4 MG; Start 11/09/16 at 17:00; Status Future Hold Carvedilol (Coreg) 6.25 mg BID PO Last administered on 11/10/16 09:33; Admin Dose 6.25 MG; Start 11/09/16 at 21:00 Isosorbide Mononitrate (Imdur) 30 mg DAILY PO Last administered on 11/10/16 09: 32; Admin Dose 30 MG; Start 11/10/16 at 09:00 Furosemide (Lasix) 40 mg DAILY IV Last administered on 11/10/16 09:33; Admin Dose 40 MG; Start 11/09/16 at 17:00 Hydralazine HCl 10 mg 10 mg Q4H PRN IV SBP>160; Start 11/09/16 at 17:30 Ferric Sodium Gluconate Complex/ Sodium Chloride (Ferrlecit/NS) 110 ml @ 100 mls/hr Q24H IVPB Last administered on 11/09/16 20:56; Admin Dose 100 MLS/HR; Start 11/09/16 at 20:00; Stop 11/11/16 at 21:05 TERRANCE OCAMPO MD Nov 10, 2016 16:47
[2016-11-10] MEDS: ATORVASTATIN 40 MG TAB PO SCH (21:09)
[2016-11-10] MEDS: SOD FERRIC GLUC COMPLX 125 MG in SOD CHLORIDE 0.9% 100 ML IVPB SCH (21:12)
--- NOTE | 2016-11-10 21:30 | PN ---
Date/Time of Note Date/Time of Note DATE: 11/10/16 TIME: 21:25 Assessment/Plan VTE Prophylaxis VTE Prophylaxis Intervention: ambulation, anti-embolic stocking VTE Contraindication Reason: peripheral vascular disease Lines/Catheters IV Catheter Type (from Nrsg): [place] line still needed: No Urinary Cath still in place: No Reason Cath still needed: urinary retention Assessment/Plan Assessment/Plan 1. systolic and diastolic hear failure with acute exacerbation . 2. History of coronary artery disease with coronary artery bypass grafting. 3. History of cardiac arrest, status post ruptured left anterior descending. 4. History of cardiac tamponade. 5. Hypertension-resistant with episodes of crisis . 6. Hyperlipidemia. 7. Atrial fibrillation, rate controlled. 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 21.PMS 22.Constipation 23.Dizziness and ear noises 24.GARY 25.Severe muscular weakness. Cont'd Hospitalization Reason: chf and atn. Subjective 24 Hr Interval Summary Free Text/Dictation Dizziness. I was falling. No actual fall. Weakness with dry mouth. Subjective hx not possible: other (weak,dizzy.) Constitutional: disoriented, improved, poor po, requiring O2, No chills, No diaphoresis, No febrile, No no complaints, No other, No requiring IVF Eyes: No discharge, No no complaints, No other, No pain, No redness, No visual change ENT: No bleeding, No congestion, No discharge, No dysphagia, No no complaints, No other, No pain, No sore throat Respiratory: shortness of breath, No cough, No no complaints, No other, No pain, No pleuritic pain, No sputum, No wheezing Cardiovascular: chest pain, edema (decreased edema of both legs.), lightheadedness, palpitations, paroxysmal nocturnal dyspnea, No no complaints, No orthopenea, No other Gastrointestinal: decreased appetite, flatus, nausea, No blood, No constipation, No diarrhea, No no complaints, No other, No pain, No passing stool, No vomiting Genitourinary: No bleeding, No discharge, No dysuria, No flank pain, No hematuria, No no complaints, No other Musculoskeletal: back pain, bone/joint pain, neck pain, No no complaints, No other, No restricted range of motion, No swelling Skin: pruritis, No bruising, No erythema, No laceration, No no complaints, No other, No rash , No skin lesions Neurologic: dizziness, headache, No confusion, No focal-weakness, No no complaints, No other, No seizure, No syncope Psychological: anxiety, No confusion, No depression, No nl mood/affect, No no complaints, No other, No suicidal Exam/Review of Systems Vital Signs Vitals Vital Signs Date Time Temp Pulse Resp B/P Pulse Ox O2 Delivery O2 Flow Rate FiO2 11/10/16 20:57 2.0 11/10/16 20:11 58 11/10/16 16:04 98.4 16 106/55 93 11/09/16 21:00 Nasal Cannula Intake and Output 11/09/16 11/09/16 11/10/16 15:00 23:00 07:00 Intake Total 1070 ml 200 ml Output Total 1600 ml 1400 ml Balance -530 ml -1200 ml Exam Constitutional: alert, distress, frail, oriented, No non-verbal, No obese, No other, No well developed Psych: anxiety, depression Head: atraumatic, normocephalic, No hematomas, No lacerations, No other Eyes: EOMI, PERRL, nl lids, other (paleness.) ENMT: nl external ears & nose, tympanic membranes, No intubated, No mucosa pink and moist, No nl lips & teeth, No nl nasal mucosa & septum, No other Neck: bruits, non-tender, nuchal rigidity, supple, No jvd, No masses, No other, No thyromegaly Respiratory: congested cough, diminished breath sounds, No clear to auscultation, No crackles/rales, No intercostal retraction, No labored breathing, No normal air movement, No other, No respirations, No tactile fremitus, No wheezing Cardiovascular: bruits, edema (decreased with the folding of skin of both feet.), irregular rhythm, systolic murmur, No S3, No S4, No diastolic murmur, No gallop, No jugular venous distention ( JVD), No murmurs/extra sounds, No nl pulses, No other, No regular rate and rhythm, No rub Gastrointestinal: bowel sounds, nl liver, spleen, soft, No ascites, No distended, No firm, No hepatomegaly, No mass, No non-tender, No other, No rebound or guarding, No splenomegaly, No surgical scars, No tender Musculoskeletal: joint tenderness, muscle tone, muscle weakness, range of motion, No nl extremities to inspection, No nl gait and stance, No other, No spine non-tender, No swelling Extremities: normal pulses, tenderness, No calf tenderness, No clubbing, No cyanosis, No edema, No other, No palpable cord, No pitting pedal edema Neurological: [employer]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 intact, numbness, No DTR's symmetric, No confused, No focal weakness, No lethargic, No nl mental status, No nl speech, No nl strength, No other, No reflexes, No unresponsive Skin: rash or lesions, No diaphoresis, No ecchymosis, No laceration, No nl turgor, No other, No puncture Results Result Diagram: 11/10/16 0620 11/10/16 0620 Results 24 hrs Laboratory Tests Test 11/10/16 06:20 11/10/16 08:40 White Blood Count 3.3 #L Red Blood Count 3.12 L Hemoglobin 9.4 L Hematocrit 29.8 L Mean Corpuscular Volume 95.5 Mean Corpuscular Hemoglobin 30.1 Mean Corpuscular Hemoglobin Concent 31.5 L Red Cell Distribution Width 14.7 H Platelet Count 118 #L Mean Platelet Volume 11.2 H Neutrophils % 61.5 Lymphocytes % 27.8 Monocytes % 7.3 Eosinophils % 2.8 Basophils % 0.3 Nucleated Red Blood Cells % 0.0 Neutrophils # 2.0 Lymphocytes # 0.9 Monocytes # 0.2 L Eosinophils # 0.1 Basophils # 0.0 Nucleated Red Blood Cells # 0.0 Prothrombin Time 40.0 #H Prothrombin Time Ratio 3.1 INR International Normalized Ratio 4.04 Sodium Level 133 L Potassium Level 4.5 Chloride Level 99 Carbon Dioxide Level 28 Anion Gap 11 Blood Urea Nitrogen 43 H Creatinine 2.88 H Glucose Level 105 Calcium Level 8.5 Total Bilirubin 0.5 Direct Bilirubin 0.00 Indirect Bilirubin 0.5 Aspartate Amino Transf (AST/SGOT) 22 Alanine Aminotransferase (ALT/SGPT) 20 Alkaline Phosphatase 67 B-Type Natriuretic Peptide 68813 H Total Protein 5.8 #L Albumin 3.1 #L Globulin 2.70 Albumin/Globulin Ratio 1.14 Bedside Glucose 118 Medications Medications Current Medications Atorvastatin Calcium (Lipitor) 40 mg QHS PO Last administered on 11/10/16 21:09 ; Admin Dose 40 MG; Start 11/09/16 at 21:00 EZETIMIBE (Zetia) 10 mg DAILY PO Last administered on 11/10/16 09:32; Admin Dose 10 MG; Start 11/09/16 at 09:00 Fenofibrate (Tricor) 145 mg DAILY PO Last administered on 11/10/16 09:36; Admin Dose 145 MG; Start 11/09/16 at 09:00 Ranolazine (Ranexa) 500 mg Q12 PO Last administered on 11/10/16 21:09; Admin Dose 500 MG; Start 11/09/16 at 01:00 Pantoprazole (Protonix Tab) 40 mg DAILY@06 PO Last administered on 11/10/16 06: 28; Admin Dose 40 MG; Start 11/09/16 at 06:00 Warfarin Sodium (Coumadin) 4 mg DAILY@17 PO Last administered on 11/09/16 17:58 ; Admin Dose 4 MG; Start 11/09/16 at 17:00; Status Future Hold Carvedilol (Coreg) 6.25 mg BID PO Last administered on 11/10/16 21:10; Admin Dose 6.25 MG; Start 11/09/16 at 21:00 Isosorbide Mononitrate (Imdur) 30 mg DAILY PO Last administered on 11/10/16 09: 32; Admin Dose 30 MG; Start 11/10/16 at 09:00 Hydralazine HCl 10 mg 10 mg Q4H PRN IV SBP>160; Start 11/09/16 at 17:30 Ferric Sodium Gluconate Complex/ Sodium Chloride (Ferrlecit/NS) 110 ml @ 100 mls/hr Q24H IVPB Last administered on 11/10/16 21:12; Admin Dose 100 MLS/HR; Start 11/09/16 at 20:00; Stop 11/11/16 at 21:05 Hydralazine HCl (Apresoline) 25 mg TID PO ; Start 11/10/16 at 21:00 Furosemide (Lasix) 40 mg DAILY PO ; Start 11/11/16 at 09:00 LAURA DENT MD Nov 10, 2016 21:30
--- NOTE | 2016-11-10 22:41 | CONS ---
Date/Time of Note Date/Time of Note DATE: 11/10/16 TIME: 22:41 Assessment/Plan Assessment/Plan Chief Complaint/Hosp Course PANCYTOPENIA WITH LEUKOPENIA SINCE 02.21 ANEMIA, CHRONIC , WILL PROCEED WITH W-UP THROMBOCYTOPENIA- FROM 2014 PROCEED WITH W-UP MONITOR BLOOD COUNT CLOSELY OBSERVE FOR BLEEDING AND HEMOLYSIS CHECK ABD US CONSIDER BMBX Acute on chronic combined systolic/diastolic heart failure - improved with diuresis Ischemic cardiomyopathy, LVEF 35-40% Coronary artery disease - history of myocardial infarction with coronary rupture and subsequent CABG Accelerated hypertension - blood pressures now improved and with hypotension Mild aortic stenosis Dyslipidemia Chronic atrial fibrillation Acute kidney injury on chronic kidney disease Problems: Consultation Date/Type/Reason Admit Date/Time Nov 08, 2016 at 23:12 Date of Consultation: Nov 10, 2016 Type of Consultation: hemeonc Reason for Consultation pancytopenia Referring Provider: LAURA DENT MD Hx of Present Illness 71-year-old woman presents for shortness of breath, increased orthopnea, increased peripheral edema, paroxysmal nocturnal dyspnea 2 weeks although worse over the last 3 days. She has had no fever or chills, no chest pain, no vomiting or diarrhea, no headache or blurry vision. her medical w-up and treatment are in progress she was noted to have pancytopenia and i was asked to provide hemeonc consult ROS All systems reviewed and are negative except as per history of present illness. Medications Home Meds Reported Medications Hydralazine Hcl* (Hydralazine Hcl*) 50 Mg Tab, 50 MG PO TID, #90 TAB 11/08/16 Ranolazine* (Ranexa*) 500 Mg Tab.sr.12h, 500 MG PO Q12, TAB 11/08/16 Ezetimibe* (Zetia*) 10 Mg Tablet, 10 MG PO DAILY, TAB 11/08/16 Pramipexole* (Pramipexole*) 0.25 Mg Tablet, 0.25 MG PO TID, TAB 11/08/16 Atorvastatin* (Atorvastatin*) 40 Mg Tablet, 40 MG PO QHS, #30 TAB 11/08/16 Warfarin Sodium* (Warfarin Sodium*) 4 Mg Tablet, 4 MG PO DAILY, TAB 11/08/16 Naproxen* (Naproxen*) 500 Mg Tablet, 500 MG PO BID, TAB 11/08/16 Metolazone* (Metolazone*) 10 Mg Tablet, 10 MG PO DAILY, TAB 11/08/16 Isosorbide Dinitrate* (Isordil*) 40 Mg Tablet, 40 MG PO BID, TAB 11/08/16 Clonidine Hcl* (Clonidine Hcl*) 0.2 Mg Tablet, 0.2 MG PO Q8 Y for PRN, TAB 11/08/16 Metoprolol Succinate* (Toprol XL*) 50 Mg Tab.er.24h, 50 MG PO DAILY, TAB 02/17/15 Fenofibrate Nanocrystallized* (Tricor*) 145 Mg Tablet, 145 MG PO DAILY 05/15/11 Discontinued Reported Medications Aspirin* (Aspirin* EC) 81 Mg Tablet.dr, 81 MG PO DAILY, TAB 02/17/15 Ergocalciferol* (Drisdol* (Vitamin D2)) 50,000 Unit Capsule, 89309 UNIT PO EVERY 14 DAYS, CAP 02/17/15 Folic Acid* (Folic Acid*) 1 Mg Tablet, 1 MG PO DAILY 05/15/11 Simvastatin* (Zocor*) 20 Mg Tablet, 20 MG PO DAILY 05/15/11 Discontinued Scripts Amlodipine Besylate* (Norvasc*) 10 Mg Tab, 10 MG PO DAILY, #20 Prov:ALBAN SAUCEDO [employer] 02/20/15 Rivaroxaban* (Xarelto*) 15 Mg Tablet, 15 MG PO WITH BREAKFAST, #20 Prov:ALBAN SAUCEDO [employer]AB[employer] 02/20/15 Allergies Allergies: Coded Allergies: No Known Allergy (Verified , 11/08/16) PMhx/Soc Anxiety, chronic kidney disease, coronary artery disease status post coronary bypass graft, DVT, anemia, hypertension, atrial fibrillation, pulmonary hypertension, congestive heart failure History of Surgery: Yes (s/p LAD rupture, cardicac tamponade and CABG) Anesthesia Reaction: No Hx Neurological Disorder: Yes (SOMETIMES SHE FEELS DIZZY AND ALMOST WANTS TO PASSED OUT) Hx Respiratory Disorders: No Hx Cardiac Disorders: Yes (HTN,CABG-2007,HIGH CHOLESTEROL) Hx Psychiatric Problems: No Hx Miscellaneous Medical Probl: Yes (cardiac arrest, osteoprosis, htn) Hx Alcohol Use: No Hx Substance Use: No Hx Tobacco Use: No Smoking Status: Never smoker FmHx Family History: No diabetes Constitutional: disoriented, improved, poor po, requiring O2, No chills, No diaphoresis, No febrile, No no complaints, No other, No requiring IVF Eyes: No discharge, No no complaints, No other, No pain, No redness, No visual change ENT: No bleeding, No congestion, No discharge, No dysphagia, No no complaints, No other, No pain, No sore throat Respiratory: shortness of breath, No cough, No no complaints, No other, No pain, No pleuritic pain, No sputum, No wheezing Cardiovascular: chest pain, edema (decreased edema of both legs.), lightheadedness, palpitations, paroxysmal nocturnal dyspnea, No no complaints, No orthopenea, No other Gastrointestinal: decreased appetite, flatus, nausea, No blood, No constipation, No diarrhea, No no complaints, No other, No pain, No passing stool, No vomiting Genitourinary: No bleeding, No discharge, No dysuria, No flank pain, No hematuria, No no complaints, No other Musculoskeletal: back pain, bone/joint pain, neck pain, No no complaints, No other, No restricted range of motion, No swelling Skin: pruritis, No bruising, No erythema, No laceration, No no complaints, No other, No rash , No skin lesions Neurologic: dizziness, headache, No confusion, No focal-weakness, No no complaints, No other, No seizure, No syncope Lymphatic: No adenopathy, No lymphadema, No no complaints, No other, No tender nodes Psychological: anxiety, depression Immunologic: pruritis, No immunodeficiency, No no complaints, No other, No rhinitis, No urticaria Past Medical History Medical History: angina, colitis, congestive heart failure, coronary artery disease, deep vein thrombosis, diabetes, GERD, high cholesterol, hypertension, renal disease, urinary tract infection Past Surgical History Past Surgical Hx: angioplasty, coronary bypass surgery Social History Alcohol Use: none Smoking Status: Never smoker Drug Use: none Exam/Review of Systems Vital Signs Vitals Vital Signs Date Time Temp Pulse Resp B/P Pulse Ox O2 Delivery O2 Flow Rate FiO2 11/10/16 20:57 2.0 11/10/16 20:11 58 11/10/16 16:04 98.4 16 106/55 93 11/09/16 21:00 Nasal Cannula Intake and Output 11/09/16 11/09/16 11/10/16 15:00 23:00 07:00 Intake Total 1070 ml 200 ml Output Total 1600 ml 1400 ml Balance -530 ml -1200 ml Exam Constitutional: alert, well developed Psych: nl mood/affect, no complaints Head: atraumatic, normocephalic Eyes: nl conjunctiva, nl lids ENMT: nl external ears & nose, nl nasal mucosa & septum Neck: jvd, non-tender, supple Respiratory: crackles/rales, diminished breath sounds Cardiovascular: regular rate and rhythm, systolic murmur Gastrointestinal: non-tender, soft Extremities: edema, No clubbing, No cyanosis Neurological: nl mental status, nl speech Results Result Diagram: 11/10/16 0620 11/10/16 0620 Results 24 hrs Laboratory Tests Test 11/10/16 06:20 11/10/16 08:40 White Blood Count 3.3 #L Red Blood Count 3.12 L Hemoglobin 9.4 L Hematocrit 29.8 L Mean Corpuscular Volume 95.5 Mean Corpuscular Hemoglobin 30.1 Mean Corpuscular Hemoglobin Concent 31.5 L Red Cell Distribution Width 14.7 H Platelet Count 118 #L Mean Platelet Volume 11.2 H Neutrophils % 61.5 Lymphocytes % 27.8 Monocytes % 7.3 Eosinophils % 2.8 Basophils % 0.3 Nucleated Red Blood Cells % 0.0 Neutrophils # 2.0 Lymphocytes # 0.9 Monocytes # 0.2 L Eosinophils # 0.1 Basophils # 0.0 Nucleated Red Blood Cells # 0.0 Prothrombin Time 40.0 #H Prothrombin Time Ratio 3.1 INR International Normalized Ratio 4.04 Sodium Level 133 L Potassium Level 4.5 Chloride Level 99 Carbon Dioxide Level 28 Anion Gap 11 Blood Urea Nitrogen 43 H Creatinine 2.88 H Glucose Level 105 Calcium Level 8.5 Total Bilirubin 0.5 Direct Bilirubin 0.00 Indirect Bilirubin 0.5 Aspartate Amino Transf (AST/SGOT) 22 Alanine Aminotransferase (ALT/SGPT) 20 Alkaline Phosphatase 67 B-Type Natriuretic Peptide 09720 H Total Protein 5.8 #L Albumin 3.1 #L Globulin 2.70 Albumin/Globulin Ratio 1.14 Bedside Glucose 118 Medications Medications Current Medications Atorvastatin Calcium (Lipitor) 40 mg QHS PO Last administered on 11/10/16 21:09 ; Admin Dose 40 MG; Start 11/09/16 at 21:00 EZETIMIBE (Zetia) 10 mg DAILY PO Last administered on 11/10/16 09:32; Admin Dose 10 MG; Start 11/09/16 at 09:00 Fenofibrate (Tricor) 145 mg DAILY PO Last administered on 11/10/16 09:36; Admin Dose 145 MG; Start 11/09/16 at 09:00 Ranolazine (Ranexa) 500 mg Q12 PO Last administered on 11/10/16 21:09; Admin Dose 500 MG; Start 11/09/16 at 01:00 Pantoprazole (Protonix Tab) 40 mg DAILY@06 PO Last administered on 11/10/16 06: 28; Admin Dose 40 MG; Start 11/09/16 at 06:00 Warfarin Sodium (Coumadin) 4 mg DAILY@17 PO Last administered on 11/09/16 17:58 ; Admin Dose 4 MG; Start 11/09/16 at 17:00; Status Future Hold Carvedilol (Coreg) 6.25 mg BID PO Last administered on 11/10/16 21:10; Admin Dose 6.25 MG; Start 11/09/16 at 21:00 Isosorbide Mononitrate (Imdur) 30 mg DAILY PO Last administered on 11/10/16 09: 32; Admin Dose 30 MG; Start 11/10/16 at 09:00 Hydralazine HCl 10 mg 10 mg Q4H PRN IV SBP>160; Start 11/09/16 at 17:30 Ferric Sodium Gluconate Complex/ Sodium Chloride (Ferrlecit/NS) 110 ml @ 100 mls/hr Q24H IVPB Last administered on 11/10/16 21:12; Admin Dose 100 MLS/HR; Start 11/09/16 at 20:00; Stop 11/11/16 at 21:05 Hydralazine HCl (Apresoline) 25 mg TID PO ; Start 11/10/16 at 21:00 Furosemide (Lasix) 20 mg DAILY PO ; Start 11/11/16 at 09:00 Furosemide (Lasix) 20 mg DAILY@06 PO ; Start 11/11/16 at 06:00 MANDIE MALAVE MD Nov 10, 2016 22:41
[2016-11-11] VITALS (12 sets, daily range): BP systolic 98–134; BP diastolic 54–62; PULSE 55–72; RESP 15–19
[2016-11-11] MEDS: ALBUTEROL/IPRATROPIUM (NEB) 3 ML AMP HHN SCH ×4 (02:00→20:00)
[2016-11-11] MEDS ORDERED: FUROSEMIDE 20 MG TAB PO SCH (06:00)
[2016-11-11] MEDS: PANTOPRAZOLE (EC) 40 MG TAB PO SCH (06:22)
[2016-11-11 07:25] LABS: ADD SCAN DIFF NO
[2016-11-11 07:39] LABS: BASOPHILS % 0.3 % (0.0-2.0); EOSINOPHILS # 0.1 10^3/ul (0.0-0.5); EOSINOPHILS % 4.7 % (0.0-7.0); HEMOGLOBIN 9.4 g/dl (12.0-16.0); LYMPHOCYTES # 1.3 10^3/ul (0.8-2.9); LYMPHOCYTES % 42.4 % (15.0-51.0); MEAN CORPUSCULAR HEMOGLOBIN 30.4 pg (29.0-33.0); MEAN CORPUSCULAR HGB CONC 31.3 g/dl (32.0-37.0); MEAN CORPUSCULAR VOLUME 97.1 fl (82.0-101.0); MEAN PLATELET VOLUME 11.5 fl (7.4-10.4); MONOCYTE # 0.3 10^3/ul (0.3-0.9); MONOCYTES % 9.8 % (0.0-11.0); NEUTROPHIL # 1.3 10^3/ul (1.6-7.5); NEUTROPHILS % 42.8 % (39.0-77.0); PLATELET COUNT 116 10^3/UL (140-415); RED BLOOD COUNT 3.09 10^6/ul (4.20-5.40); RED CELL DISTRIBUTION WIDTH 14.5 % (11.5-14.5)
[2016-11-11 07:43] LABS: INR 3.73; PROTIME 37.5 Sec (12.2-14.2); PT RATIO 2.9
[2016-11-11 07:47] LABS: POTASSIUM 4.2 mmol/L (3.5-5.1)
[2016-11-11 07:50] LABS: CALCIUM 8.4 mg/dl (8.4-10.2); CREATININE 3.48 mg/dl (0.44-1.00)
[2016-11-11 07:52] LABS: IRON 127 ug/dl (35-150)
[2016-11-11 08:01] LABS: TOTAL IRON BINDING CAPACITY 316 ug/dl (241-421)
[2016-11-11 08:34] LABS: RETICULOCYTE COUNT % 1.2 % (0.5-1.5)
[2016-11-11 08:58] LABS: URIC ACID 7.7 mg/dl (3.1-7.9)
[2016-11-11] MEDS: RANOLAZINE (SR) 500 MG TAB PO SCH ×2 (09:00→21:07)
[2016-11-11] MEDS ORDERED: FUROSEMIDE 40 MG TAB PO SCH (09:00)
[2016-11-11] MEDS: FUROSEMIDE 40 MG TAB PO SCH (09:26)
[2016-11-11] MEDS: FENOFIBRATE 145 MG TAB PO SCH (09:27)
[2016-11-11] MEDS: EZETIMIBE 10 MG TAB PO SCH (09:27)
[2016-11-11] MEDS: ISOSORBIDE MONONITRATE(SR)30 MG TAB PO SCH (09:27)
[2016-11-11 09:31] LABS: THYROID STIMULATING HORMONE 2.38 MIU/L (0.465-4.680)
[2016-11-11 09:35] LABS: FERRITIN 81.6 ng/ml (11.1-264.0)
[2016-11-11 09:44] LABS: CARCINOEMBRYONIC ANTIGEN 2.1 ng/ml (0.0-5.0)
--- NOTE | 2016-11-11 10:35 | CONS ---
Date/Time of Note Date/Time of Note DATE: 11/11/16 TIME: 10:34 Assessment/Plan Assessment/Plan Chief Complaint/Hosp Course PANCYTOPENIA WITH LEUKOPENIA SINCE 02.21 ANEMIA, CHRONIC , WILL PROCEED WITH W-UP THROMBOCYTOPENIA- FROM 2014 PROCEED WITH W-UP MONITOR BLOOD COUNT CLOSELY OBSERVE FOR BLEEDING AND HEMOLYSIS CHECK ABD US CONSIDER BMBX Acute on chronic combined systolic/diastolic heart failure - improved with diuresis Ischemic cardiomyopathy, LVEF 35-40% Coronary artery disease - history of myocardial infarction with coronary rupture and subsequent CABG Accelerated hypertension - blood pressures now improved and with hypotension Mild aortic stenosis Dyslipidemia Chronic atrial fibrillation Acute kidney injury on chronic kidney disease Problems: Consultation Date/Type/Reason Admit Date/Time Nov 08, 2016 at 23:12 Initial Consult Date Type of Consultation: HEMEON Referring Provider: LAURA DENT MD 24 HR Interval Summary Free Text/Dictation W-UP IN PROGRESS NO BLEEDING, NO HEMOLYSIS Exam/Review of Systems Vital Signs Vitals Vital Signs Date Time Temp Pulse Resp B/P Pulse Ox O2 Delivery O2 Flow Rate FiO2 11/11/16 08:00 56 11/11/16 07:51 98.4 19 127/60 96 11/11/16 04:00 Nasal Cannula 2.0 Intake and Output 11/10/16 11/10/16 11/11/16 15:00 23:00 07:00 Intake Total 600 ml 500 ml Output Total 700 ml 700 ml Balance -100 ml -200 ml Exam Constitutional: alert, distress, frail, oriented, No non-verbal, No other, No well developed Psych: anxiety, depression, No confusion, No nl mood/affect, No no complaints, No other, No suicidal Head: atraumatic, No hematomas, No lacerations, No normocephalic, No other Eyes: EOMI, PERRL, nl lids, other (pale conjunctivas.) ENMT: nl nasal mucosa & septum, tympanic membranes Neck: bruits, jvd, nuchal rigidity, No masses, No non-tender, No other, No supple, No thyromegaly Respiratory: congested cough, crackles/rales, diminished breath sounds, labored breathing, tactile fremitus, No clear to auscultation, No intercostal retraction, No normal air movement, No other, No respirations, No wheezing Cardiovascular: bruits, edema, irregular rhythm, systolic murmur, No S3, No S4, No diastolic murmur, No gallop, No jugular venous distention ( JVD), No murmurs/extra sounds, No nl pulses, No other, No regular rate and rhythm, No rub Gastrointestinal: bowel sounds, distended, soft, No ascites, No firm, No hepatomegaly, No mass, No nl liver, spleen, No non- tender, No other, No rebound or guarding, No splenomegaly, No surgical scars, No tender Genitourinary - Female: other (refused. No complains.) Extremities: calf tenderness, edema, other (erythematouse rash of the tibial area left more than right with irregular borders jitendra size.), pitting pedal edema Neurological: [employer] ASS[employer]ATE II-XII intact (except cn#12.), DTR's symmetric, confused, numbness, other (decreased memory, anxious.) Results Result Diagram: 11/11/16 0649 11/11/16 0649 Results 24 hrs Laboratory Tests Test 11/11/16 06:44 11/11/16 06:49 Absolute Reticulocyte Count 0.036 Percent Reticulocyte Count 1.2 Uric Acid 7.7 Iron Level 127 Total Iron Binding Capacity 316 Percent Iron Saturation 40 Ferritin 81.6 Lactate Dehydrogenase 470 Carcinoembryonic Antigen 2.1 Vitamin B12 Level 308 Thyroid Stimulating Hormone (TSH) 2.380 White Blood Count 3.0 L Red Blood Count 3.09 L Hemoglobin 9.4 L Hematocrit 30.0 L Mean Corpuscular Volume 97.1 Mean Corpuscular Hemoglobin 30.4 Mean Corpuscular Hemoglobin Concent 31.3 L Red Cell Distribution Width 14.5 Platelet Count 116 L Mean Platelet Volume 11.5 H Neutrophils % 42.8 Lymphocytes % 42.4 Monocytes % 9.8 Eosinophils % 4.7 Basophils % 0.3 Nucleated Red Blood Cells % 0.0 Neutrophils # 1.3 L Lymphocytes # 1.3 Monocytes # 0.3 Eosinophils # 0.1 Basophils # 0.0 Nucleated Red Blood Cells # 0.0 Erythrocyte Sedimentation Rate 12 Prothrombin Time 37.5 H Prothrombin Time Ratio 2.9 INR International Normalized Ratio 3.73 Sodium Level 135 Potassium Level 4.2 Chloride Level 95 L Carbon Dioxide Level 28 Anion Gap 16 Blood Urea Nitrogen 52 H Creatinine 3.48 H Glucose Level 99 Calcium Level 8.4 Medications Medications Current Medications Atorvastatin Calcium (Lipitor) 40 mg QHS PO Last administered on 11/10/16 21:09 ; Admin Dose 40 MG; Start 11/09/16 at 21:00 EZETIMIBE (Zetia) 10 mg DAILY PO Last administered on 11/11/16 09:27; Admin Dose 10 MG; Start 11/09/16 at 09:00 Fenofibrate (Tricor) 145 mg DAILY PO Last administered on 11/11/16 09:27; Admin Dose 145 MG; Start 11/09/16 at 09:00 Ranolazine (Ranexa) 500 mg Q12 PO Last administered on 11/10/16 21:09; Admin Dose 500 MG; Start 11/09/16 at 01:00 Pantoprazole (Protonix Tab) 40 mg DAILY@06 PO Last administered on 11/11/16 06: 22; Admin Dose 40 MG; Start 11/09/16 at 06:00 Warfarin Sodium (Coumadin) 4 mg DAILY@17 PO Last administered on 11/09/16 17:58 ; Admin Dose 4 MG; Start 11/09/16 at 17:00; Status Future Hold Carvedilol (Coreg) 6.25 mg BID PO Last administered on 11/11/16 09:27; Admin Dose 6.25 MG; Start 11/09/16 at 21:00 Isosorbide Mononitrate (Imdur) 30 mg DAILY PO Last administered on 11/11/16 09: 27; Admin Dose 30 MG; Start 11/10/16 at 09:00 Hydralazine HCl 10 mg 10 mg Q4H PRN IV SBP>160; Start 11/09/16 at 17:30 Ferric Sodium Gluconate Complex/ Sodium Chloride (Ferrlecit/NS) 110 ml @ 100 mls/hr Q24H IVPB Last administered on 11/10/16 21:12; Admin Dose 100 MLS/HR; Start 11/09/16 at 20:00; Stop 11/11/16 at 21:05 Hydralazine HCl (Apresoline) 25 mg TID PO Last administered on 11/11/16 09:27; Admin Dose 25 MG; Start 11/10/16 at 21:00 Furosemide (Lasix) 20 mg DAILY PO Last administered on 11/11/16 09:26; Admin Dose 20 MG; Start 11/11/16 at 09:00 Furosemide (Lasix) 20 mg DAILY@06 PO ; Start 11/11/16 at 06:00 MANDIE MALAVE MD Nov 11, 2016 10:35
--- NOTE | 2016-11-11 11:17 | PN ---
Date/Time of Note Date/Time of Note DATE: 11/11/16 TIME: Assessment/Plan VTE Prophylaxis VTE Prophylaxis Intervention: ambulation, anti-embolic stocking VTE Contraindication Reason: peripheral vascular disease Lines/Catheters IV Catheter Type (from Nrsg): [place] [employer] line still needed: No Urinary Cath still in place: Yes Reason Cath still needed: urinary retention Assessment/Plan Assessment/Plan 1. systolic and diastolic hear failure with acute exacerbation . 2. History of coronary artery disease with coronary artery bypass grafting. 3. History of cardiac arrest, status post ruptured left anterior descending. 4. History of cardiac tamponade. 5. Hypertension-resistant with episodes of crisis . 6. Hyperlipidemia. 7. Atrial fibrillation, rate controlled. 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 21.PMS 22.Constipation 23.Dizziness and ear noises 24.GARY 25.Severe muscular weakness. 26.Severe constipation. Cont'd Hospitalization Reason: chf and atn. Subjective 24 Hr Interval Summary Free Text/Dictation dry mouth. Constitutional: chills, poor po, requiring IVF, requiring O2, No diaphoresis, No disoriented, No febrile, No improved, No no complaints, No other Eyes: discharge, No no complaints, No other, No pain, No redness, No visual change ENT: No bleeding, No congestion, No discharge, No dysphagia, No no complaints, No other, No pain, No sore throat Respiratory: cough, pleuritic pain, shortness of breath, No no complaints, No other, No pain, No sputum, No wheezing Cardiovascular: chest pain, edema, lightheadedness, paroxysmal nocturnal dyspnea, No no complaints, No orthopenea, No other, No palpitations Gastrointestinal: constipation, decreased appetite, flatus, pain, No blood, No diarrhea, No nausea, No no complaints, No other, No passing stool, No vomiting Genitourinary: dysuria, flank pain, No bleeding, No discharge, No hematuria, No no complaints, No other Musculoskeletal: back pain, bone/joint pain, neck pain, restricted range of motion, No no complaints, No other, No swelling Skin: erythema, pruritis, No bruising, No laceration, No no complaints, No other, No rash, No skin lesions Neurologic: confusion, dizziness, headache, syncope Endocrine: dry skin, no complaints, polydypsia, No other, No polyuria, No temp intolerance Lymphatic: no complaints, tender nodes, No adenopathy, No lymphadema, No other Psychological: anxiety, confusion, depression Exam/Review of Systems Vital Signs Vitals Vital Signs Date Time Temp Pulse Resp B/P Pulse Ox O2 Delivery O2 Flow Rate FiO2 11/11/16 08:00 56 11/11/16 07:51 98.4 19 127/60 96 11/11/16 04:00 Nasal Cannula 2.0 Intake and Output 11/10/16 11/10/16 11/11/16 15:00 23:00 07:00 Intake Total 600 ml 500 ml Output Total 700 ml 700 ml Balance -100 ml -200 ml Exam Constitutional: alert, distress, well developed, No frail, No non-verbal, No obese, No oriented, No other Psych: anxiety, depression, No confusion, No nl mood/affect, No no complaints, No other, No suicidal Head: No atraumatic, No hematomas, No lacerations, No normocephalic, No other Eyes: EOMI, PERRL, nl lids, No fundi, disc, No icteric, No nl conjunctiva, No nl sclera, No other ENMT: nl external ears & nose, nl nasal mucosa & septum, No intubated, No mucosa pink and moist, No nl lips & teeth, No other, No tympanic membranes Neck: bruits, jvd, nuchal rigidity, No masses, No non-tender, No other, No supple, No thyromegaly Respiratory: congested cough, diminished breath sounds, respirations, No clear to auscultation, No crackles/rales, No intercostal retraction, No labored breathing, No normal air movement, No other, No tactile fremitus, No wheezing Cardiovascular: bruits, edema, jugular venous distention (JVD), systolic murmur Gastrointestinal: ascites, distended, hepatomegaly, nl liver, spleen, soft, No bowel sounds, No firm, No mass, No non-tender, No other, No rebound or guarding, No splenomegaly, No surgical scars, No tender Musculoskeletal: joint tenderness, muscle weakness, range of motion Neurological: [employer]AT [employer]K HAND II-XII intact, lethargic, No DTR's symmetric, No confused, No focal weakness, No nl mental status, No nl speech, No nl strength, No numbness, No other, No reflexes, No unresponsive Skin: No diaphoresis, No ecchymosis, No laceration, No nl turgor, No other, No puncture, No rash or lesions Lymph: No enlarged, No nl lymph nodes, No nontender, No other Results Result Diagram: 11/11/1649 11/11/16 0649 Results 24 hrs Laboratory Tests Test 11/11/16 06:44 11/11/16 06:49 Absolute Reticulocyte Count 0.036 Percent Reticulocyte Count 1.2 Uric Acid 7.7 Iron Level 127 Total Iron Binding Capacity 316 Percent Iron Saturation 40 Ferritin 81.6 Lactate Dehydrogenase 470 Carcinoembryonic Antigen 2.1 Vitamin B12 Level 308 Thyroid Stimulating Hormone (TSH) 2.380 White Blood Count 3.0 L Red Blood Count 3.09 L Hemoglobin 9.4 L Hematocrit 30.0 L Mean Corpuscular Volume 97.1 Mean Corpuscular Hemoglobin 30.4 Mean Corpuscular Hemoglobin Concent 31.3 L Red Cell Distribution Width 14.5 Platelet Count 116 L Mean Platelet Volume 11.5 H Neutrophils % 42.8 Lymphocytes % 42.4 Monocytes % 9.8 Eosinophils % 4.7 Basophils % 0.3 Nucleated Red Blood Cells % 0.0 Neutrophils # 1.3 L Lymphocytes # 1.3 Monocytes # 0.3 Eosinophils # 0.1 Basophils # 0.0 Nucleated Red Blood Cells # 0.0 Erythrocyte Sedimentation Rate 12 Prothrombin Time 37.5 H Prothrombin Time Ratio 2.9 INR International Normalized Ratio 3.73 Sodium Level 135 Potassium Level 4.2 Chloride Level 95 L Carbon Dioxide Level 28 Anion Gap 16 Blood Urea Nitrogen 52 H Creatinine 3.48 H Glucose Level 99 Calcium Level 8.4 Medications Medications Current Medications Atorvastatin Calcium (Lipitor) 40 mg QHS PO Last administered on 11/10/16t 21:09 ; Admin Dose 40 MG; Start 11/09/16 at 21:00 EZETIMIBE (Zetia) 10 mg DAILY PO Last administered on 11/11/16 09:27; Admin Dose 10 MG; Start 11/09/16 at 09:00 Fenofibrate (Tricor) 145 mg DAILY PO Last administered on 11/11/16 09:27; Admin Dose 145 MG; Start 11/09/16 at 09:00 Ranolazine (Ranexa) 500 mg Q12 PO Last administered on 11/10/16 21:09; Admin Dose 500 MG; Start 11/09/16 at 01:00 Pantoprazole (Protonix Tab) 40 mg DAILY@06 PO Last administered on 11/11/16 06: 22; Admin Dose 40 MG; Start 11/09/16 at 06:00 Warfarin Sodium (Coumadin) 4 mg DAILY@17 PO Last administered on 11/09/16 17:58 ; Admin Dose 4 MG; Start 11/09/16 at 17:00; Status Future Hold Carvedilol (Coreg) 6.25 mg BID PO Last administered on 11/11/16 09:27; Admin Dose 6.25 MG; Start 11/09/16 at 21:00 Isosorbide Mononitrate (Imdur) 30 mg DAILY PO Last administered on 11/11/16 09: 27; Admin Dose 30 MG; Start 11/10/16 at 09:00 Hydralazine HCl 10 mg 10 mg Q4H PRN IV SBP>160; Start 11/09/16 at 17:30 Ferric Sodium Gluconate Complex/ Sodium Chloride (Ferrlecit/NS) 110 ml @ 100 mls/hr Q24H IVPB Last administered on 11/10/16 21:12; Admin Dose 100 MLS/HR; Start 11/09/16 at 20:00; Stop 11/11/16 at 21:05 Hydralazine HCl (Apresoline) 25 mg TID PO Last administered on 11/11/16 09:27; Admin Dose 25 MG; Start 11/10/16 at 21:00 Furosemide (Lasix) 20 mg DAILY PO Last administered on 11/11/16 09:26; Admin Dose 20 MG; Start 11/11/16 at 09:00 Furosemide (Lasix) 20 mg DAILY@06 PO ; Start 11/11/16 at 06:00 LAURA DENT MD Nov 11, 2016 11:17
--- NOTE | 2016-11-11 14:58 | CONS ---
Date/Time of Note Date/Time of Note DATE: 11/11/16 TIME: 14:56 Assessment/Plan Assessment/Plan Chief Complaint/Hosp Course Assessment: Acute on chronic combined systolic/diastolic heart failure - improving with diuresis Ischemic cardiomyopathy, LVEF 35-40% Coronary artery disease - history of myocardial infarction with coronary rupture and subsequent CABG Accelerated hypertension - blood pressures now improved and with hypotension Mild aortic stenosis Dyslipidemia Chronic atrial fibrillation Acute kidney injury on chronic kidney disease Recommendations: -echocardiogram showed LVEF 35-40% with septal and anterior wall dyskinesis, severe diastolic dysfunction, mild aortic stenosis, RVSP 61 mmHg -Lasix decreased to 20mg PO daily, monitor renal function -continue carvedilol 6.25mg BID, hydralazine 25mg TID, Imdur 30mg daily, as blood pressure can tolerate -continue ranolazine 500mg BID -continue atorvastatin 40mg daily - ? need for Zetia and Tricor (will defer to outpatient flower planter, Dr. Segovia) -continue warfarin with goal INR 2-3 (currently on hold due to supratherapeutic INR) Problems: Consultation Date/Type/Reason Admit Date/Time Nov 08, 2016 at 23:12 Type of Consultation: Cardiology 24 HR Interval Summary Free Text/Dictation Breathing improved. Detailed Summary Additional Comments 14 point review of systems without changes. Exam/Review of Systems Vital Signs Vitals Vital Signs Date Time Temp Pulse Resp B/P Pulse Ox O2 Delivery O2 Flow Rate FiO2 11/11/16 12:12 98.8 59 19 98/54 95 11/11/16 08:30 Nasal Cannula 2.0 Intake and Output 11/10/16 11/10/16 11/11/16 15:00 23:00 07:00 Intake Total 600 ml 500 ml Output Total 700 ml 700 ml Balance -100 ml -200 ml Exam Constitutional: alert, well developed Psych: nl mood/affect, no complaints Head: atraumatic, normocephalic Eyes: nl conjunctiva, nl lids ENMT: nl external ears & nose, nl nasal mucosa & septum Neck: jvd, non-tender, supple Respiratory: crackles/rales, diminished breath sounds Cardiovascular: regular rate and rhythm, systolic murmur Gastrointestinal: non-tender, soft Extremities: edema, No clubbing, No cyanosis Neurological: nl mental status, nl speech Results Result Diagram: 11/11/16 0649 11/11/16 0649 Results 24 hrs Laboratory Tests Test 11/11/16 06:44 11/11/16 06:49 Absolute Reticulocyte Count 0.036 Percent Reticulocyte Count 1.2 Uric Acid 7.7 Iron Level 127 Total Iron Binding Capacity 316 Percent Iron Saturation 40 Ferritin 81.6 Lactate Dehydrogenase 470 Carcinoembryonic Antigen 2.1 Vitamin B12 Level 308 Thyroid Stimulating Hormone (TSH) 2.380 White Blood Count 3.0 L Red Blood Count 3.09 L Hemoglobin 9.4 L Hematocrit 30.0 L Mean Corpuscular Volume 97.1 Mean Corpuscular Hemoglobin 30.4 Mean Corpuscular Hemoglobin Concent 31.3 L Red Cell Distribution Width 14.5 Platelet Count 116 L Mean Platelet Volume 11.5 H Neutrophils % 42.8 Lymphocytes % 42.4 Monocytes % 9.8 Eosinophils % 4.7 Basophils % 0.3 Nucleated Red Blood Cells % 0.0 Neutrophils # 1.3 L Lymphocytes # 1.3 Monocytes # 0.3 Eosinophils # 0.1 Basophils # 0.0 Nucleated Red Blood Cells # 0.0 Erythrocyte Sedimentation Rate 12 Prothrombin Time 37.5 H Prothrombin Time Ratio 2.9 INR International Normalized Ratio 3.73 Sodium Level 135 Potassium Level 4.2 Chloride Level 95 L Carbon Dioxide Level 28 Anion Gap 16 Blood Urea Nitrogen 52 H Creatinine 3.48 H Glucose Level 99 Calcium Level 8.4 Medications Medications Current Medications Atorvastatin Calcium (Lipitor) 40 mg QHS PO Last administered on 11/10/16 21:09 ; Admin Dose 40 MG; Start 11/09/16 at 21:00 EZETIMIBE (Zetia) 10 mg DAILY PO Last administered on 11/11/16 09:27; Admin Dose 10 MG; Start 11/09/16 at 09:00 Fenofibrate (Tricor) 145 mg DAILY PO Last administered on 11/11/16 09:27; Admin Dose 145 MG; Start 11/09/16 at 09:00 Ranolazine (Ranexa) 500 mg Q12 PO Last administered on 11/10/16 21:09; Admin Dose 500 MG; Start 11/09/16 at 01:00 Pantoprazole (Protonix Tab) 40 mg DAILY@06 PO Last administered on 11/11/16 06: 22; Admin Dose 40 MG; Start 11/09/16 at 06:00 Warfarin Sodium (Coumadin) 4 mg DAILY@17 PO Last administered on 11/09/16 17:58 ; Admin Dose 4 MG; Start 11/09/16 at 17:00; Status Future Hold Carvedilol (Coreg) 6.25 mg BID PO Last administered on 11/11/16 09:27; Admin Dose 6.25 MG; Start 11/09/16 at 21:00 Isosorbide Mononitrate (Imdur) 30 mg DAILY PO Last administered on 11/11/16 09: 27; Admin Dose 30 MG; Start 11/10/16 at 09:00 Hydralazine HCl 10 mg 10 mg Q4H PRN IV SBP>160; Start 11/09/16 at 17:30 Ferric Sodium Gluconate Complex/ Sodium Chloride (Ferrlecit/NS) 110 ml @ 100 mls/hr Q24H IVPB Last administered on 11/10/16 21:12; Admin Dose 100 MLS/HR; Start 11/09/16 at 20:00; Stop 11/11/16 at 21:05 Hydralazine HCl (Apresoline) 25 mg TID PO Last administered on 11/11/16 09:27; Admin Dose 25 MG; Start 11/10/16 at 21:00 Furosemide (Lasix) 20 mg DAILY PO Last administered on 11/11/16 09:26; Admin Dose 20 MG; Start 11/11/16 at 09:00 Furosemide 20 mg 20 mg DAILY@06 PO ; Start 11/11/16 at 06:00 Sodium Chloride (1/2 NS) 1,000 ml @ 200 mls/hr Q5H ONCE IV Last administered on 11/11/16 14:55; Admin Dose 200 MLS/HR; Start 11/11/16 at 15:00; Stop 11/11/16 at 19:59 TERRANCE OCAMPO MD Nov 11, 2016 14:58
[2016-11-11] MEDS ORDERED: SOD CHLORIDE 0.45% 1,000 ML IV ONE (15:00)
[2016-11-11] MEDS: SOD FERRIC GLUC COMPLX 125 MG in SOD CHLORIDE 0.9% 100 ML IVPB SCH (21:03)
[2016-11-11] MEDS: ATORVASTATIN 40 MG TAB PO SCH (21:07)
[2016-11-12] VITALS (11 sets, daily range): BP systolic 107–140; BP diastolic 56–82; PULSE 54–73; RESP 16–20
[2016-11-12] MEDS: ALBUTEROL/IPRATROPIUM (NEB) 3 ML AMP HHN SCH ×4 (01:20→20:00)
[2016-11-12] MEDS: PANTOPRAZOLE (EC) 40 MG TAB PO SCH (05:17)
[2016-11-12 05:36] LABS: PROTEIN, TOTAL 5.2 g/dL (6.1-8.1)
[2016-11-12] MEDS: FUROSEMIDE 40 MG TAB PO SCH (09:00)
[2016-11-12] MEDS: FENOFIBRATE 145 MG TAB PO SCH (09:24)
[2016-11-12] MEDS: EZETIMIBE 10 MG TAB PO SCH (09:24)
[2016-11-12] MEDS: RANOLAZINE (SR) 500 MG TAB PO SCH ×2 (09:24→20:41)
[2016-11-12] MEDS: ISOSORBIDE MONONITRATE(SR)30 MG TAB PO SCH (09:25)
[2016-11-12 12:05] LABS: ADD SCAN DIFF NO
[2016-11-12 12:07] LABS: BASOPHILS % 0.3 % (0.0-2.0); EOSINOPHILS # 0.1 10^3/ul (0.0-0.5); EOSINOPHILS % 3.9 % (0.0-7.0); HEMATOCRIT 29.4 % (37.0-47.0); HEMOGLOBIN 9.3 g/dl (12.0-16.0); LYMPHOCYTES % 31.9 % (15.0-51.0); MEAN CORPUSCULAR HGB CONC 31.6 g/dl (32.0-37.0); MEAN PLATELET VOLUME 11.2 fl (7.4-10.4); MONOCYTE # 0.3 10^3/ul (0.3-0.9); MONOCYTES % 9.9 % (0.0-11.0); NEUTROPHIL # 1.6 10^3/ul (1.6-7.5); PLATELET COUNT 114 10^3/UL (140-415)
[2016-11-12 12:29] LABS: POTASSIUM 4.3 mmol/L (3.5-5.1)
[2016-11-12 12:31] LABS: ALBUMIN/GLOBULIN RATIO 1.15; BILIRUBIN,INDIRECT 0.3 mg/dl (0-1.1); BILIRUBIN,TOTAL 0.3 mg/dl (0.2-1.3); CREATININE 3.53 mg/dl (0.44-1.00); TOTAL PROTEIN 5.6 g/dl (6.1-8.1)
[2016-11-12 12:32] LABS: CALCIUM 8.1 mg/dl (8.4-10.2)
--- NOTE | 2016-11-12 14:40 | CONS ---
Date/Time of Note Date/Time of Note DATE: 11/12/16 TIME: 14:40 Assessment/Plan Assessment/Plan Chief Complaint/Hosp Course PANCYTOPENIA WITH LEUKOPENIA SINCE 02.21 ANEMIA, CHRONIC , WILL PROCEED WITH W-UP THROMBOCYTOPENIA- FROM 2014 COMPLETE W-UP MONITOR BLOOD COUNT CLOSELY OBSERVE FOR BLEEDING AND HEMOLYSIS CHECK ABD US CONSIDER BMBX Acute on chronic combined systolic/diastolic heart failure - improved with diuresis Ischemic cardiomyopathy, LVEF 35-40% Coronary artery disease - history of myocardial infarction with coronary rupture and subsequent CABG Accelerated hypertension - blood pressures now improved and with hypotension Mild aortic stenosis Dyslipidemia Chronic atrial fibrillation Acute kidney injury on chronic kidney disease Problems: Consultation Date/Type/Reason Admit Date/Time Nov 08, 2016 at 23:12 Type of Consultation: hemeon Referring Provider: LAURA DENT MD 24 HR Interval Summary Free Text/Dictation ALL NOTED NO NEW EVENTS COUNT REVIEWED Exam/Review of Systems Vital Signs Vitals Vital Signs Date Time Temp Pulse Resp B/P Pulse Ox O2 Delivery O2 Flow Rate FiO2 11/12/16 12:26 54 11/12/16 12:13 98.5 20 107/56 94 11/12/16 09:51 Nasal Cannula 2.0 Intake and Output 11/11/16 11/11/16 11/12/16 15:00 23:00 07:00 Intake Total 1100 ml 350 ml Output Total 750 ml 650 ml Balance 350 ml -300 ml Exam Constitutional: alert, distress, frail, oriented, No non-verbal, No other, No well developed Psych: anxiety, depression, No confusion, No nl mood/affect, No no complaints, No other, No suicidal Head: atraumatic, No hematomas, No lacerations, No normocephalic, No other Eyes: EOMI, PERRL, nl lids, other (pale conjunctivas.) ENMT: nl nasal mucosa & septum, tympanic membranes Neck: bruits, jvd, nuchal rigidity, No masses, No non-tender, No other, No supple, No thyromegaly Respiratory: congested cough, crackles/rales, diminished breath sounds, labored breathing, tactile fremitus, No clear to auscultation, No intercostal retraction, No normal air movement, No other, No respirations, No wheezing Cardiovascular: bruits, edema, irregular rhythm, systolic murmur, No S3, No S4, No diastolic murmur, No gallop, No jugular venous distention ( JVD), No murmurs/extra sounds, No nl pulses, No other, No regular rate and rhythm, No rub Gastrointestinal: bowel sounds, distended, soft, No ascites, No firm, No hepatomegaly, No mass, No nl liver, spleen, No non- tender, No other, No rebound or guarding, No splenomegaly, No surgical scars, No tender Genitourinary - Female: other (refused. No complains.) Extremities: calf tenderness, edema, other (erythematouse rash of the tibial area left more than right with irregular borders jitendra size.), pitting pedal edema Neurological: BANK NOTE DESIGNER II-XII intact (except cn#12.), DTR's symmetric, confused, numbness, other (decreased memory, anxious.) Results Result Diagram: 11/12/16 1145 11/12/16 1145 Results 24 hrs Laboratory Tests Test 11/12/16 11:45 White Blood Count 3.0 L Red Blood Count 3.00 L Hemoglobin 9.3 L Hematocrit 29.4 L Mean Corpuscular Volume 98.0 Mean Corpuscular Hemoglobin 31.0 Mean Corpuscular Hemoglobin Concent 31.6 L Red Cell Distribution Width 14.0 Platelet Count 114 L Mean Platelet Volume 11.2 H Neutrophils % 54.0 Lymphocytes % 31.9 Monocytes % 9.9 Eosinophils % 3.9 Basophils % 0.3 Nucleated Red Blood Cells % 0.0 Neutrophils # 1.6 Lymphocytes # 1.0 Monocytes # 0.3 Eosinophils # 0.1 Basophils # 0.0 Nucleated Red Blood Cells # 0.0 Sodium Level 132 L Potassium Level 4.3 Chloride Level 97 Carbon Dioxide Level 28 Anion Gap 11 Blood Urea Nitrogen 59 H Creatinine 3.53 H Glucose Level 111 Calcium Level 8.1 L Total Bilirubin 0.3 Direct Bilirubin 0.00 Indirect Bilirubin 0.3 Aspartate Amino Transf (AST/SGOT) 17 Alanine Aminotransferase (ALT/SGPT) 22 Alkaline Phosphatase 57 Total Protein 5.6 L Albumin 3.0 L Globulin 2.60 Albumin/Globulin Ratio 1.15 Medications Medications Current Medications Atorvastatin Calcium (Lipitor) 40 mg QHS PO Last administered on 11/11/16t 21:07 ; Admin Dose 40 MG; Start 11/09/16 at 21:00 EZETIMIBE (Zetia) 10 mg DAILY PO Last administered on 11/12/16 09:24; Admin Dose 10 MG; Start 11/09/16 at 09:00 Fenofibrate (Tricor) 145 mg DAILY PO Last administered on 11/12/16 09:24; Admin Dose 145 MG; Start 11/09/16 at 09:00 Ranolazine (Ranexa) 500 mg Q12 PO Last administered on 11/12/16 09:24; Admin Dose 500 MG; Start 11/09/16 at 01:00 Pantoprazole (Protonix Tab) 40 mg DAILY@06 PO Last administered on 11/12/16 05: 17; Admin Dose 40 MG; Start 11/09/16 at 06:00 Warfarin Sodium (Coumadin) 4 mg DAILY@17 PO Last administered on 11/09/16 17:58 ; Admin Dose 4 MG; Start 11/09/16 at 17:00; Status Future Hold Carvedilol (Coreg) 6.25 mg BID PO Last administered on 11/11/16 21:08; Admin Dose 6.25 MG; Start 11/09/16 at 21:00 Isosorbide Mononitrate (Imdur) 30 mg DAILY PO Last administered on 11/12/16 09: 25; Admin Dose 30 MG; Start 11/10/16 at 09:00 Hydralazine HCl (Apresoline) 10 mg Q4H PRN IV SBP>160; Start 11/09/16 at 17:30 Hydralazine HCl (Apresoline) 25 mg TID PO Last administered on 11/11/16 21:07; Admin Dose 25 MG; Start 11/10/16 at 21:00 MANDIE MALAVE MD Nov 12, 2016 14:40
--- NOTE | 2016-11-12 14:42 | CONS ---
Date/Time of Note Date/Time of Note DATE: 11/12/16 TIME: 14:42 Assessment/Plan Assessment/Plan Chief Complaint/Hosp Course PANCYTOPENIA WITH LEUKOPENIA SINCE 02.21 ANEMIA, CHRONIC , WILL PROCEED WITH W-UP THROMBOCYTOPENIA- FROM 2014 PROCEED WITH W-UP MONITOR BLOOD COUNT CLOSELY OBSERVE FOR BLEEDING AND HEMOLYSIS CHECK ABD US CONSIDER BMBX Acute on chronic combined systolic/diastolic heart failure - improved with diuresis Ischemic cardiomyopathy, LVEF 35-40% Coronary artery disease - history of myocardial infarction with coronary rupture and subsequent CABG Accelerated hypertension - blood pressures now improved and with hypotension Mild aortic stenosis Dyslipidemia Chronic atrial fibrillation Acute kidney injury on chronic kidney disease Problems: Consultation Date/Type/Reason Admit Date/Time Nov 08, 2016 at 23:12 Type of Consultation: hemeonc 24 HR Interval Summary Free Text/Dictation ALL NOTED NO NEW EVENTS NO BLEEDING COUNT REVIEWED Exam/Review of Systems Vital Signs Vitals Vital Signs Date Time Temp Pulse Resp B/P Pulse Ox O2 Delivery O2 Flow Rate FiO2 11/12/16 12:26 54 11/12/16 12:13 98.5 20 107/56 94 11/12/16 09:51 Nasal Cannula 2.0 Intake and Output 11/11/16 11/11/16 11/12/16 15:00 23:00 07:00 Intake Total 1100 ml 350 ml Output Total 750 ml 650 ml Balance 350 ml -300 ml Exam Constitutional: alert, distress, frail, oriented, No non-verbal, No other, No well developed Psych: anxiety, depression, No confusion, No nl mood/affect, No no complaints, No other, No suicidal Head: atraumatic, No hematomas, No lacerations, No normocephalic, No other Eyes: EOMI, PERRL, nl lids, other (pale conjunctivas.) ENMT: nl nasal mucosa & septum, tympanic membranes Neck: bruits, jvd, nuchal rigidity, No masses, No non-tender, No other, No supple, No thyromegaly Respiratory: congested cough, crackles/rales, diminished breath sounds, labored breathing, tactile fremitus, No clear to auscultation, No intercostal retraction, No normal air movement, No other, No respirations, No wheezing Cardiovascular: bruits, edema, irregular rhythm, systolic murmur, No S3, No S4, No diastolic murmur, No gallop, No jugular venous distention ( JVD), No murmurs/extra sounds, No nl pulses, No other, No regular rate and rhythm, No rub Gastrointestinal: bowel sounds, distended, soft, No ascites, No firm, No hepatomegaly, No mass, No nl liver, spleen, No non- tender, No other, No rebound or guarding, No splenomegaly, No surgical scars, No tender Genitourinary - Female: other (refused. No complains.) Extremities: calf tenderness, edema, other (erythematouse rash of the tibial area left more than right with irregular borders jitendra size.), pitting pedal edema Neurological: STUD DAIRY CATTLE FARMER II-XII intact (except cn#12.), DTR's symmetric, confused, numbness, other (decreased memory, anxious.) Results Result Diagram: 11/12/16 1145 11/12/16 1145 Results 24 hrs Laboratory Tests Test 11/12/16 11:45 White Blood Count 3.0 L Red Blood Count 3.00 L Hemoglobin 9.3 L Hematocrit 29.4 L Mean Corpuscular Volume 98.0 Mean Corpuscular Hemoglobin 31.0 Mean Corpuscular Hemoglobin Concent 31.6 L Red Cell Distribution Width 14.0 Platelet Count 114 L Mean Platelet Volume 11.2 H Neutrophils % 54.0 Lymphocytes % 31.9 Monocytes % 9.9 Eosinophils % 3.9 Basophils % 0.3 Nucleated Red Blood Cells % 0.0 Neutrophils # 1.6 Lymphocytes # 1.0 Monocytes # 0.3 Eosinophils # 0.1 Basophils # 0.0 Nucleated Red Blood Cells # 0.0 Sodium Level 132 L Potassium Level 4.3 Chloride Level 97 Carbon Dioxide Level 28 Anion Gap 11 Blood Urea Nitrogen 59 H Creatinine 3.53 H Glucose Level 111 Calcium Level 8.1 L Total Bilirubin 0.3 Direct Bilirubin 0.00 Indirect Bilirubin 0.3 Aspartate Amino Transf (AST/SGOT) 17 Alanine Aminotransferase (ALT/SGPT) 22 Alkaline Phosphatase 57 Total Protein 5.6 L Albumin 3.0 L Globulin 2.60 Albumin/Globulin Ratio 1.15 Medications Medications Current Medications Atorvastatin Calcium (Lipitor) 40 mg QHS PO Last administered on 11/11/16t 21:07 ; Admin Dose 40 MG; Start 11/09/16 at 21:00 EZETIMIBE (Zetia) 10 mg DAILY PO Last administered on 11/12/16 09:24; Admin Dose 10 MG; Start 11/09/16 at 09:00 Fenofibrate (Tricor) 145 mg DAILY PO Last administered on 11/12/16 09:24; Admin Dose 145 MG; Start 11/09/16 at 09:00 Ranolazine (Ranexa) 500 mg Q12 PO Last administered on 11/12/16 09:24; Admin Dose 500 MG; Start 11/09/16 at 01:00 Pantoprazole (Protonix Tab) 40 mg DAILY@06 PO Last administered on 11/12/16 05: 17; Admin Dose 40 MG; Start 11/09/16 at 06:00 Warfarin Sodium (Coumadin) 4 mg DAILY@17 PO Last administered on 11/09/16 17:58 ; Admin Dose 4 MG; Start 11/09/16 at 17:00; Status Future Hold Carvedilol (Coreg) 6.25 mg BID PO Last administered on 11/11/16 21:08; Admin Dose 6.25 MG; Start 11/09/16 at 21:00 Isosorbide Mononitrate (Imdur) 30 mg DAILY PO Last administered on 11/12/16 09: 25; Admin Dose 30 MG; Start 11/10/16 at 09:00 Hydralazine HCl (Apresoline) 10 mg Q4H PRN IV SBP>160; Start 11/09/16 at 17:30 Hydralazine HCl (Apresoline) 25 mg TID PO Last administered on 11/11/16 21:07; Admin Dose 25 MG; Start 11/10/16 at 21:00 MANDIE MALAVE MD Nov 12, 2016 14:42
[2016-11-12] MEDS ORDERED: SOD CHLORIDE 0.9% 1,000 ML IV ONE (16:00)
[2016-11-12] MEDS: POLYETHYLENE GLYCOL 17 GM PACKET PO SCH ×2 (16:51→20:41)
--- NOTE | 2016-11-12 19:46 | PN ---
Date/Time of Note Date/Time of Note DATE: 11/12/16 TIME: 19:41 Assessment/Plan VTE Prophylaxis VTE Prophylaxis Intervention: ambulation, anti-embolic stocking VTE Contraindication Reason: peripheral vascular disease Lines/Catheters IV Catheter Type (from Nrsg): [place] [employer] line still needed: No Urinary Cath still in place: Yes Reason Cath still needed: urinary retention Assessment/Plan Assessment/Plan 1. systolic and diastolic hear failure with acute exacerbation . 2. History of coronary artery disease with coronary artery bypass grafting. 3. History of cardiac arrest, status post ruptured left anterior descending. 4. History of cardiac tamponade. 5. Hypertension-resistant with episodes of crisis . 6. Hyperlipidemia. 7. Atrial fibrillation, rate controlled. 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 21.PMS 22.Constipation 23.Dizziness and ear noises 24.GARY 25.Severe muscular weakness. Cont'd Hospitalization Reason: ckd with acutre exacerbation. Subjective 24 Hr Interval Summary Free Text/Dictation Dry mouth. Muscle dramps. I am very weak. I am less trusty. Subjective hx not possible: other (lethargic.) Constitutional: poor po, requiring IVF, requiring O2, No chills, No diaphoresis, No disoriented, No febrile, No improved, No no complaints, No other Eyes: No discharge, No no complaints, No other, No pain, No redness, No visual change ENT: No bleeding, No congestion, No discharge, No dysphagia, No no complaints, No other, No pain, No sore throat Respiratory: shortness of breath, No cough, No no complaints, No other, No pain, No pleuritic pain, No sputum, No wheezing Cardiovascular: chest pain, lightheadedness, orthopenea, palpitations, No edema, No no complaints, No other, No paroxysmal nocturnal dyspnea Gastrointestinal: constipation, nausea, No blood, No decreased appetite, No diarrhea, No flatus, No no complaints, No other, No pain, No passing stool, No vomiting Genitourinary: No bleeding, No discharge, No dysuria, No flank pain, No hematuria, No no complaints, No other Musculoskeletal: back pain, bone/joint pain, neck pain, No no complaints, No other, No restricted range of motion, No swelling Endocrine: No dry skin, No no complaints, No other, No polydypsia, No polyuria , No temp intolerance Lymphatic: no complaints, No adenopathy, No lymphadema, No other, No tender nodes Psychological: anxiety, depression, No confusion, No nl mood/affect, No no complaints, No other, No suicidal Exam/Review of Systems Vital Signs Vitals Vital Signs Date Time Temp Pulse Resp B/P Pulse Ox O2 Delivery O2 Flow Rate FiO2 11/12/16 16:31 59 11/12/16 12:13 98.5 20 107/56 94 11/12/16 09:51 Nasal Cannula 2.0 Intake and Output 11/11/16 11/11/16 11/12/16 15:00 23:00 07:00 Intake Total 1100 ml 350 ml Output Total 750 ml 650 ml Balance 350 ml -300 ml Exam Constitutional: alert, distress, obese, oriented, well developed, No frail, No non-verbal, No other Psych: anxiety, depression, No confusion, No nl mood/affect, No no complaints, No other, No suicidal Head: atraumatic, normocephalic, No hematomas, No lacerations, No other Eyes: EOMI, PERRL, nl lids, No fundi, disc, No icteric, No nl conjunctiva, No nl sclera, No other ENMT: nl lips & teeth, No intubated, No mucosa pink and moist, No nl external ears & nose, No nl nasal mucosa & septum, No other, No tympanic membranes Neck: bruits, jvd, non-tender, supple, No masses, No nuchal rigidity, No other, No thyromegaly Respiratory: congested cough, diminished breath sounds, labored breathing, No clear to auscultation, No crackles/rales, No intercostal retraction, No normal air movement, No other, No respirations, No tactile fremitus, No wheezing Cardiovascular: bruits, jugular venous distention (JVD), systolic murmur, No S3, No S4, No diastolic murmur, No edema, No gallop, No irregular rhythm, No murmurs/extra sounds, No nl pulses, No other, No regular rate and rhythm, No rub Gastrointestinal: bowel sounds, distended, nl liver, spleen, soft, No ascites, No firm, No hepatomegaly, No mass, No non-tender, No other, No rebound or guarding, No splenomegaly, No surgical scars, No tender Musculoskeletal: joint tenderness, muscle tone, muscle weakness, No nl extremities to inspection, No nl gait and stance, No other, No range of motion, No spine non-tender, No swelling Extremities: edema (none.), tenderness Neurological: ALLERGIST II-XII intact, lethargic, nl speech Skin: No diaphoresis, No ecchymosis, No laceration, No nl turgor, No other, No puncture, No rash or lesions Lymph: No enlarged, No nl lymph nodes, No nontender, No other Results Result Diagram: 11/12/16 1145 11/12/16 1145 Results 24 hrs Laboratory Tests Test 11/12/16 11:45 White Blood Count 3.0 L Red Blood Count 3.00 L Hemoglobin 9.3 L Hematocrit 29.4 L Mean Corpuscular Volume 98.0 Mean Corpuscular Hemoglobin 31.0 Mean Corpuscular Hemoglobin Concent 31.6 L Red Cell Distribution Width 14.0 Platelet Count 114 L Mean Platelet Volume 11.2 H Neutrophils % 54.0 Lymphocytes % 31.9 Monocytes % 9.9 Eosinophils % 3.9 Basophils % 0.3 Nucleated Red Blood Cells % 0.0 Neutrophils # 1.6 Lymphocytes # 1.0 Monocytes # 0.3 Eosinophils # 0.1 Basophils # 0.0 Nucleated Red Blood Cells # 0.0 Sodium Level 132 L Potassium Level 4.3 Chloride Level 97 Carbon Dioxide Level 28 Anion Gap 11 Blood Urea Nitrogen 59 H Creatinine 3.53 H Glucose Level 111 Calcium Level 8.1 L Total Bilirubin 0.3 Direct Bilirubin 0.00 Indirect Bilirubin 0.3 Aspartate Amino Transf (AST/SGOT) 17 Alanine Aminotransferase (ALT/SGPT) 22 Alkaline Phosphatase 57 Total Protein 5.6 L Albumin 3.0 L Globulin 2.60 Albumin/Globulin Ratio 1.15 Medications Medications Current Medications Atorvastatin Calcium (Lipitor) 40 mg QHS PO Last administered on 11/11/16 21:07 ; Admin Dose 40 MG; Start 11/09/16 at 21:00 EZETIMIBE (Zetia) 10 mg DAILY PO Last administered on 11/12/16 09:24; Admin Dose 10 MG; Start 11/09/16 at 09:00 Fenofibrate (Tricor) 145 mg DAILY PO Last administered on 11/12/16 09:24; Admin Dose 145 MG; Start 11/09/16 at 09:00 Ranolazine (Ranexa) 500 mg Q12 PO Last administered on 11/12/16 09:24; Admin Dose 500 MG; Start 11/09/16 at 01:00 Pantoprazole (Protonix Tab) 40 mg DAILY@06 PO Last administered on 11/12/16 05: 17; Admin Dose 40 MG; Start 11/09/16 at 06:00 Warfarin Sodium (Coumadin) 4 mg DAILY@17 PO Last administered on 11/09/16 17:58 ; Admin Dose 4 MG; Start 11/09/16 at 17:00; Status Future Hold Carvedilol (Coreg) 6.25 mg BID PO Last administered on 11/11/16 21:08; Admin Dose 6.25 MG; Start 11/09/16 at 21:00 Isosorbide Mononitrate (Imdur) 30 mg DAILY PO Last administered on 11/12/16 09: 25; Admin Dose 30 MG; Start 11/10/16 at 09:00 Hydralazine HCl (Apresoline) 10 mg Q4H PRN IV SBP>160; Start 11/09/16 at 17:30 Hydralazine HCl (Apresoline) 25 mg TID PO Last administered on 11/11/16 21:07; Admin Dose 25 MG; Start 11/10/16 at 21:00 Docusate Sodium (Colace) 100 mg BID PO ; Start 11/12/16 at 21:00 Polyethylene Glycol 17 gm 17 gm BID PO Last administered on 11/12/16 16:51; Admin Dose 17 GM; Start 11/12/16 at 16:00 Sodium Chloride (NS) 1,000 ml @ 60 mls/hr [id number] ONCE IV Last administered on 11/12/16 16:51; Admin Dose 60 MLS/HR; Start 11/12/16 at 16:00; Stop 11/13/16 at 08:39 LAURA DENT MD Nov 12, 2016 19:46
[2016-11-12] MEDS: DOCUSATE SODIUM 100 MG CAP PO SCH (20:41)
[2016-11-12] MEDS: ATORVASTATIN 40 MG TAB PO SCH (20:41)
[2016-11-13] VITALS (12 sets, daily range): BP systolic 108–150; BP diastolic 53–67; PULSE 52–67; RESP 16–20
[2016-11-13] MEDS: ALBUTEROL/IPRATROPIUM (NEB) 3 ML AMP HHN SCH ×4 (01:24→20:00)
[2016-11-13] MEDS: PANTOPRAZOLE (EC) 40 MG TAB PO SCH (05:34)
--- NOTE | 2016-11-13 07:34 | PN ---
Date/Time of Note Date/Time of Note DATE: 11/13/16 TIME: 07:32 Assessment/Plan VTE Prophylaxis VTE Prophylaxis Intervention: ambulation, anti-embolic stocking VTE Contraindication Reason: peripheral vascular disease Lines/Catheters IV Catheter Type (from Nrsg): [place] [employer] line still needed: No Urinary Cath still in place: Yes Reason Cath still needed: urinary retention Assessment/Plan Assessment/Plan 1. systolic and diastolic hear failure improved. 2. History of coronary artery disease with coronary artery bypass grafting. 3. History of cardiac arrest, status post ruptured left anterior descending. 4. History of cardiac tamponade. 5. Hypertension-resistant with episodes of crisis . 6. Hyperlipidemia. 7. Atrial fibrillation, rate controlled. 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 21.PMS 22.Constipation-getting worse. 23.Dizziness and ear noises 24.GARY 25.Severe muscular weakness Cont'd Hospitalization Reason: ckd with exacerbstion. Subjective 24 Hr Interval Summary Free Text/Dictation Severe constipation.Dry mouth. Severe weakness. Constitutional: poor po, requiring O2, No chills, No diaphoresis, No disoriented, No febrile, No improved, No no complaints, No other, No requiring IVF Eyes: No discharge, No no complaints, No other, No pain, No redness, No visual change ENT: No bleeding, No congestion, No discharge, No dysphagia, No no complaints, No other, No pain, No sore throat Respiratory: shortness of breath, No cough, No no complaints, No other, No pain, No pleuritic pain, No sputum, No wheezing Cardiovascular: lightheadedness, orthopenea, No chest pain, No edema, No no complaints, No other, No palpitations, No paroxysmal nocturnal dyspnea Gastrointestinal: constipation, flatus, nausea, passing stool, No blood, No decreased appetite, No diarrhea, No no complaints, No other, No pain, No vomiting Genitourinary: No bleeding, No discharge, No dysuria, No flank pain, No hematuria, No no complaints, No other Musculoskeletal: back pain, bone/joint pain, neck pain, No no complaints, No other, No restricted range of motion, No swelling Skin: No bruising, No erythema, No laceration, No no complaints, No other, No pruritis, No rash, No skin lesions Neurologic: headache, No confusion, No dizziness, No focal-weakness, No no complaints, No other, No seizure, No syncope Endocrine: No dry skin, No no complaints, No other, No polydypsia, No polyuria , No temp intolerance Lymphatic: No adenopathy, No lymphadema, No no complaints, No other, No tender nodes Psychological: anxiety, No confusion, No depression, No nl mood/affect, No no complaints, No other, No suicidal Exam/Review of Systems Vital Signs Vitals Vital Signs Date Time Temp Pulse Resp B/P Pulse Ox O2 Delivery O2 Flow Rate FiO2 11/13/16 04:43 98.3 65 16 108/53 94 11/12/16 20:30 Nasal Cannula 2.0 Intake and Output 11/12/16 11/12/16 11/13/16 15:00 23:00 07:00 Intake Total 720 ml 580 ml Output Total 500 ml 1200 ml Balance 220 ml -620 ml Results Result Diagram: 11/12/16 1145 11/12/16 1145 Results 24 hrs Laboratory Tests Test 11/12/16 11:45 White Blood Count 3.0 L Red Blood Count 3.00 L Hemoglobin 9.3 L Hematocrit 29.4 L Mean Corpuscular Volume 98.0 Mean Corpuscular Hemoglobin 31.0 Mean Corpuscular Hemoglobin Concent 31.6 L Red Cell Distribution Width 14.0 Platelet Count 114 L Mean Platelet Volume 11.2 H Neutrophils % 54.0 Lymphocytes % 31.9 Monocytes % 9.9 Eosinophils % 3.9 Basophils % 0.3 Nucleated Red Blood Cells % 0.0 Neutrophils # 1.6 Lymphocytes # 1.0 Monocytes # 0.3 Eosinophils # 0.1 Basophils # 0.0 Nucleated Red Blood Cells # 0.0 Sodium Level 132 L Potassium Level 4.3 Chloride Level 97 Carbon Dioxide Level 28 Anion Gap 11 Blood Urea Nitrogen 59 H Creatinine 3.53 H Glucose Level 111 Calcium Level 8.1 L Total Bilirubin 0.3 Direct Bilirubin 0.00 Indirect Bilirubin 0.3 Aspartate Amino Transf (AST/SGOT) 17 Alanine Aminotransferase (ALT/SGPT) 22 Alkaline Phosphatase 57 Total Protein 5.6 L Albumin 3.0 L Globulin 2.60 Albumin/Globulin Ratio 1.15 Medications Medications Current Medications Atorvastatin Calcium (Lipitor) 40 mg QHS PO Last administered on 11/12/16 20:41 ; Admin Dose 40 MG; Start 11/09/16 at 21:00 EZETIMIBE (Zetia) 10 mg DAILY PO Last administered on 11/12/16 09:24; Admin Dose 10 MG; Start 11/09/16 at 09:00 Fenofibrate (Tricor) 145 mg DAILY PO Last administered on 11/12/16 09:24; Admin Dose 145 MG; Start 11/09/16 at 09:00 Ranolazine (Ranexa) 500 mg Q12 PO Last administered on 11/12/16 20:41; Admin Dose 500 MG; Start 11/09/16 at 01:00 Pantoprazole (Protonix Tab) 40 mg DAILY@06 PO Last administered on 11/13/16 05: 34; Admin Dose 40 MG; Start 11/09/16 at 06:00 Warfarin Sodium (Coumadin) 4 mg DAILY@17 PO Last administered on 11/09/16 17:58 ; Admin Dose 4 MG; Start 11/09/16 at 17:00; Status Future Hold Carvedilol (Coreg) 6.25 mg BID PO Last administered on 11/11/16 21:08; Admin Dose 6.25 MG; Start 11/09/16 at 21:00 Isosorbide Mononitrate (Imdur) 30 mg DAILY PO Last administered on 11/12/16 09: 25; Admin Dose 30 MG; Start 11/10/16 at 09:00 Hydralazine HCl (Apresoline) 10 mg Q4H PRN IV SBP>160; Start 11/09/16 at 17:30 Hydralazine HCl (Apresoline) 25 mg TID PO Last administered on 11/12/16 20:41; Admin Dose 25 MG; Start 11/10/16 at 21:00 Docusate Sodium (Colace) 100 mg BID PO Last administered on 11/12/16 20:41; Admin Dose 100 MG; Start 11/12/16 at 21:00 Polyethylene Glycol 17 gm 17 gm BID PO Last administered on 11/12/16 20:41; Admin Dose 17 GM; Start 11/12/16 at 16:00 Sodium Chloride (NS) 1,000 ml @ 60 mls/hr [id number] ONCE IV Last administered on 11/12/16 16:51; Admin Dose 60 MLS/HR; Start 11/12/16 at 16:00; Stop 11/13/16 at 08:39 LAURA DENT MD Nov 13, 2016 07:34
[2016-11-13 07:56] LABS: CALCIUM 8.2 mg/dl (8.4-10.2); CREATININE 3.4 mg/dl (0.44-1.00); POTASSIUM 4.4 mmol/L (3.5-5.1)
[2016-11-13 08:23] LABS: INR 2.75; PROTIME 29.5 Sec (12.2-14.2); PT RATIO 2.3
[2016-11-13] MEDS: EZETIMIBE 10 MG TAB PO SCH (09:16)
[2016-11-13] MEDS: ISOSORBIDE MONONITRATE(SR)30 MG TAB PO SCH (09:16)
[2016-11-13] MEDS: DOCUSATE SODIUM 100 MG CAP PO SCH ×2 (09:16→20:51)
[2016-11-13] MEDS: RANOLAZINE (SR) 500 MG TAB PO SCH ×2 (09:19→20:51)
[2016-11-13] MEDS: FENOFIBRATE 145 MG TAB PO SCH (09:19)
[2016-11-13] MEDS: POLYETHYLENE GLYCOL 17 GM PACKET PO SCH ×2 (09:20→20:49)
[2016-11-13] MEDS: BISACODYL 10 MG SUPP PR SCH ×2 (10:00→14:07)
[2016-11-13] MEDS: WARFARIN 2 MG TAB PO SCH (17:37)
--- NOTE | 2016-11-13 19:45 | CONS ---
Date/Time of Note Date/Time of Note DATE: 11/13/16 TIME: 19:43 Assessment/Plan Assessment/Plan Chief Complaint/Hosp Course Assessment: Acute on chronic combined systolic/diastolic heart failure - improved with diuresis Ischemic cardiomyopathy, LVEF 35-40% Coronary artery disease - history of myocardial infarction with coronary rupture and subsequent CABG Accelerated hypertension - blood pressures now improved and with hypotension Mild aortic stenosis Dyslipidemia Chronic atrial fibrillation Acute kidney injury on chronic kidney disease Recommendations: -echocardiogram showed LVEF 35-40% with septal and anterior wall dyskinesis, severe diastolic dysfunction, mild aortic stenosis, RVSP 61 mmHg -now off diuretics -continue carvedilol 6.25mg BID, hydralazine 25mg TID, Imdur 30mg daily -continue ranolazine 500mg BID -continue atorvastatin 40mg daily - ? need for Zetia and Tricor (will defer to outpatient community support worker, Dr. Segovia) -continue warfarin with goal INR 2-3 (currently on hold due to supratherapeutic INR) Problems: Consultation Date/Type/Reason Admit Date/Time Nov 08, 2016 at 23:12 Type of Consultation: Cardiology 24 HR Interval Summary Free Text/Dictation Shortness of breath and generalized weakness improving. Blood pressures stable. Detailed Summary Additional Comments 14 point review of systems without changes. Exam/Review of Systems Vital Signs Vitals Vital Signs Date Time Temp Pulse Resp B/P Pulse Ox O2 Delivery O2 Flow Rate FiO2 11/13/16 16:00 67 11/13/16 15:56 98.0 19 115/59 90 11/13/16 08:53 2.0 11/13/16 07:45 Nasal Cannula Intake and Output 11/12/16 11/12/16 11/13/16 15:00 23:00 07:00 Intake Total 720 ml 580 ml Output Total 500 ml 1200 ml Balance 220 ml -620 ml Exam Constitutional: alert, well developed Psych: nl mood/affect, no complaints Head: atraumatic, normocephalic Eyes: nl conjunctiva, nl lids ENMT: nl external ears & nose, nl nasal mucosa & septum Neck: jvd, non-tender, supple Respiratory: crackles/rales, diminished breath sounds Cardiovascular: regular rate and rhythm, systolic murmur Gastrointestinal: non-tender, soft Extremities: edema, No clubbing, No cyanosis Neurological: nl mental status, nl speech Results Result Diagram: 4/5/17 1145 11/13/16 0645 Results 24 hrs Laboratory Tests Test 11/13/16 06:45 Prothrombin Time 29.5 #H Prothrombin Time Ratio 2.3 INR International Normalized Ratio 2.75 Sodium Level 135 Potassium Level 4.4 Chloride Level 101 Carbon Dioxide Level 30 Anion Gap 8 Blood Urea Nitrogen 59 H Creatinine 3.40 H Glucose Level 97 Calcium Level 8.2 L Medications Medications Current Medications Atorvastatin Calcium (Lipitor) 40 mg QHS PO Last administered on 11/12/16 20:41 ; Admin Dose 40 MG; Start 11/09/16 at 21:00 EZETIMIBE (Zetia) 10 mg DAILY PO Last administered on 11/13/16 09:16; Admin Dose 10 MG; Start 11/09/16 at 09:00 Fenofibrate (Tricor) 145 mg DAILY PO Last administered on 11/13/16 09:19; Admin Dose 145 MG; Start 11/09/16 at 09:00 Ranolazine (Ranexa) 500 mg Q12 PO Last administered on 11/13/16 09:19; Admin Dose 500 MG; Start 11/09/16 at 01:00 Pantoprazole (Protonix Tab) 40 mg DAILY@06 PO Last administered on 11/13/16 05: 34; Admin Dose 40 MG; Start 11/09/16 at 06:00 Warfarin Sodium (Coumadin) 4 mg DAILY@17 PO Last administered on 11/13/16 17:37 ; Admin Dose 4 MG; Start 11/09/16 at 17:00; Status Future hold Carvedilol (Coreg) 6.25 mg BID PO Last administered on 11/13/16 09:20; Admin Dose 6.25 MG; Start 11/09/16 at 21:00 Isosorbide Mononitrate (Imdur) 30 mg DAILY PO Last administered on 11/13/16 09: 16; Admin Dose 30 MG; Start 11/10/16 at 09:00 Hydralazine HCl (Apresoline) 10 mg Q4H PRN IV SBP>160; Start 11/09/16 at 17:30 Hydralazine HCl (Apresoline) 25 mg TID PO Last administered on 11/13/16 12:39; Admin Dose 25 MG; Start 11/10/16 at 21:00 Docusate Sodium (Colace) 100 mg BID PO Last administered on 11/13/16 09:16; Admin Dose 100 MG; Start 11/12/16 at 21:00 Polyethylene Glycol (Miralax) 17 gm BID PO Last administered on 11/13/16 09:20 ; Admin Dose 17 GM; Start 11/12/16 at 16:00 Bisacodyl (Dulcolax Supp) 10 mg DAILY [place] Last administered on 11/13/16 14:07; Admin Dose 10 MG; Start 11/13/16 at 10:00 TERRANCE OCAMPO MD Nov 13, 2016 19:45
[2016-11-13] MEDS: ATORVASTATIN 40 MG TAB PO SCH (20:51)
--- NOTE | 2016-11-13 23:05 | CONS ---
Date/Time of Note Date/Time of Note DATE: 11/13/16 TIME: 23:04 Assessment/Plan Assessment/Plan Chief Complaint/Hosp Course PANCYTOPENIA WITH LEUKOPENIA SINCE 02.21 ANEMIA, CHRONIC , WILL PROCEED WITH W-UP THROMBOCYTOPENIA- FROM 2014 PROCEED WITH W-UP MONITOR BLOOD COUNT CLOSELY OBSERVE FOR BLEEDING AND HEMOLYSIS CHECK ABD US CONSIDER BMBX Acute on chronic combined systolic/diastolic heart failure - improved with diuresis Ischemic cardiomyopathy, LVEF 35-40% Coronary artery disease - history of myocardial infarction with coronary rupture and subsequent CABG Accelerated hypertension - blood pressures now improved and with hypotension Mild aortic stenosis Dyslipidemia Chronic atrial fibrillation Acute kidney injury on chronic kidney disease Problems: Consultation Date/Type/Reason Admit Date/Time Nov 08, 2016 at 23:12 Type of Consultation: hemeon Referring Provider: LAURA DENT MD 24 HR Interval Summary Free Text/Dictation NO NEW EVENTS Exam/Review of Systems Vital Signs Vitals Vital Signs Date Time Temp Pulse Resp B/P Pulse Ox O2 Delivery O2 Flow Rate FiO2 11/13/16 21:04 2.0 11/13/16 20:21 52 11/13/16 20:00 97.7 20 119/60 95 11/13/16 07:45 Nasal Cannula Intake and Output 11/12/16 11/12/16 11/13/16 15:00 23:00 07:00 Intake Total 720 ml 580 ml Output Total 500 ml 1200 ml Balance 220 ml -620 ml Exam Constitutional: alert, well developed Psych: nl mood/affect, no complaints Head: atraumatic, normocephalic Eyes: nl conjunctiva, nl lids ENMT: nl external ears & nose, nl nasal mucosa & septum Neck: jvd, non-tender, supple Respiratory: crackles/rales, diminished breath sounds Cardiovascular: regular rate and rhythm, systolic murmur Gastrointestinal: non-tender, soft Extremities: edema, No clubbing, No cyanosis Neurological: nl mental status, nl speech Results Result Diagram: 11/12/16 1145 11/13/16 0645 Results 24 hrs Laboratory Tests Test 11/13/16 06:45 Prothrombin Time 29.5 #H Prothrombin Time Ratio 2.3 INR International Normalized Ratio 2.75 Sodium Level 135 Potassium Level 4.4 Chloride Level 101 Carbon Dioxide Level 30 Anion Gap 8 Blood Urea Nitrogen 59 H Creatinine 3.40 H Glucose Level 97 Calcium Level 8.2 L Medications Medications Current Medications Atorvastatin Calcium (Lipitor) 40 mg QHS PO Last administered on 11/13/16 20:51 ; Admin Dose 40 MG; Start 11/09/16 at 21:00 EZETIMIBE (Zetia) 10 mg DAILY PO Last administered on 11/13/16 09:16; Admin Dose 10 MG; Start 11/09/16 at 09:00 Fenofibrate (Tricor) 145 mg DAILY PO Last administered on 11/13/16 09:19; Admin Dose 145 MG; Start 11/09/16 at 09:00 Ranolazine (Ranexa) 500 mg Q12 PO Last administered on 11/13/16 20:51; Admin Dose 500 MG; Start 11/09/16 at 01:00 Pantoprazole (Protonix Tab) 40 mg DAILY@06 PO Last administered on 11/13/16 05: 34; Admin Dose 40 MG; Start 11/09/16 at 06:00 Warfarin Sodium (Coumadin) 4 mg DAILY@17 PO Last administered on 11/13/16 17:37 ; Admin Dose 4 MG; Start 11/09/16 at 17:00; Status Future hold Carvedilol (Coreg) 6.25 mg BID PO Last administered on 11/13/16 09:20; Admin Dose 6.25 MG; Start 11/09/16 at 21:00 Isosorbide Mononitrate (Imdur) 30 mg DAILY PO Last administered on 11/13/16 09: 16; Admin Dose 30 MG; Start 11/10/16 at 09:00 Hydralazine HCl (Apresoline) 10 mg Q4H PRN IV SBP>160; Start 11/09/16 at 17:30 Hydralazine HCl (Apresoline) 25 mg TID PO Last administered on 11/13/16 12:39; Admin Dose 25 MG; Start 11/10/16 at 21:00 Docusate Sodium (Colace) 100 mg BID PO Last administered on 11/13/16 20:51; Admin Dose 100 MG; Start 11/12/16 at 21:00 Polyethylene Glycol (Miralax) 17 gm BID PO Last administered on 11/13/16 09:20 ; Admin Dose 17 GM; Start 11/12/16 at 16:00 Bisacodyl (Dulcolax Supp) 10 mg DAILY [place] Last administered on 11/13/16t 14:07; Admin Dose 10 MG; Start 11/13/16 at 10:00 MANDIE MALAVE MD Nov 13, 2016 23:05
[2016-11-14] VITALS (12 sets, daily range): BP systolic 114–167; BP diastolic 59–76; PULSE 50–72; RESP 16–20
[2016-11-14] MEDS: ALBUTEROL/IPRATROPIUM (NEB) 3 ML AMP HHN SCH ×3 (02:00→14:10)
[2016-11-14] MEDS: PANTOPRAZOLE (EC) 40 MG TAB PO SCH (05:45)
[2016-11-14 08:32] LABS: ADD SCAN DIFF NO
[2016-11-14 08:35] LABS: BASOPHILS % 0.6 % (0.0-2.0); EOSINOPHILS # 0.2 10^3/ul (0.0-0.5); EOSINOPHILS % 5.1 % (0.0-7.0); HEMATOCRIT 28.1 % (37.0-47.0); HEMOGLOBIN 8.8 g/dl (12.0-16.0); LYMPHOCYTES # 0.9 10^3/ul (0.8-2.9); LYMPHOCYTES % 28.1 % (15.0-51.0); MEAN CORPUSCULAR HEMOGLOBIN 30.9 pg (29.0-33.0); MEAN CORPUSCULAR HGB CONC 31.3 g/dl (32.0-37.0); MEAN CORPUSCULAR VOLUME 98.6 fl (82.0-101.0); MEAN PLATELET VOLUME 11.9 fl (7.4-10.4); MONOCYTE # 0.4 10^3/ul (0.3-0.9); MONOCYTES % 12.7 % (0.0-11.0); NEUTROPHIL # 1.8 10^3/ul (1.6-7.5); NEUTROPHILS % 53.5 % (39.0-77.0); PLATELET COUNT 107 10^3/UL (140-415); RED BLOOD COUNT 2.85 10^6/ul (4.20-5.40); RED CELL DISTRIBUTION WIDTH 13.7 % (11.5-14.5); WHITE BLOOD COUNT 3.3 10^3/ul (4.8-10.8)
[2016-11-14 08:55] LABS: INR 2.78; PROTIME 29.7 Sec (12.2-14.2); PT RATIO 2.3
[2016-11-14 08:55] LABS: ALBUMIN 3.1 g/dl (3.3-4.9); ALBUMIN/GLOBULIN RATIO 1.14; BILIRUBIN,INDIRECT 0.3 mg/dl (0-1.1); BILIRUBIN,TOTAL 0.3 mg/dl (0.2-1.3); CALCIUM 8.3 mg/dl (8.4-10.2); CREATININE 3.23 mg/dl (0.44-1.00); POTASSIUM 4.6 mmol/L (3.5-5.1); TOTAL PROTEIN 5.8 g/dl (6.1-8.1)
[2016-11-14] MEDS: ISOSORBIDE MONONITRATE(SR)30 MG TAB PO SCH (11:45)
[2016-11-14] MEDS: POLYETHYLENE GLYCOL 17 GM PACKET PO SCH ×3 (14:54→22:31)
[2016-11-14] MEDS: BISACODYL 10 MG SUPP PR SCH (14:54)
[2016-11-14] MEDS: DOCUSATE SODIUM 100 MG CAP PO SCH ×3 (14:55→22:30)
[2016-11-14] MEDS: FENOFIBRATE 145 MG TAB PO SCH (14:56)
[2016-11-14] MEDS: EZETIMIBE 10 MG TAB PO SCH (14:56)
[2016-11-14] MEDS: RANOLAZINE (SR) 500 MG TAB PO SCH ×2 (14:56→22:31)
--- NOTE | 2016-11-14 15:31 | CONS ---
Date/Time of Note Date/Time of Note DATE: 11/14/16 TIME: 15:29 Assessment/Plan Assessment/Plan Chief Complaint/Hosp Course Assessment: Acute on chronic combined systolic/diastolic heart failure - improved with diuresis Ischemic cardiomyopathy, LVEF 35-40% Coronary artery disease - history of myocardial infarction with coronary rupture and subsequent CABG Accelerated hypertension - blood pressures now improved and with hypotension Mild aortic stenosis Dyslipidemia Chronic atrial fibrillation Acute kidney injury on chronic kidney disease Recommendations: -echocardiogram showed LVEF 35-40% with septal and anterior wall dyskinesis, severe diastolic dysfunction, mild aortic stenosis, RVSP 61 mmHg -repeat chest x-ray -now off diuretics -continue carvedilol 6.25mg BID, hydralazine 25mg TID, Imdur 30mg daily -continue ranolazine 500mg BID -continue atorvastatin 40mg daily - ? need for Zetia and Tricor (will defer to outpatient box office attendant, Dr. Segovia) -continue warfarin with goal INR 2-3 (currently on hold due to supratherapeutic INR) Problems: Consultation Date/Type/Reason Admit Date/Time Nov 08, 2016 at 23:12 Type of Consultation: Cardiology 24 HR Interval Summary Free Text/Dictation Overall improved. Shortness of breath improved, but apparently still requiring nasal canula. Detailed Summary Additional Comments 14 point review of systems without changes. Exam/Review of Systems Vital Signs Vitals Vital Signs Date Time Temp Pulse Resp B/P Pulse Ox O2 Delivery O2 Flow Rate FiO2 11/14/16 12:13 65 11/14/16 11:37 98.5 18 167/74 96 11/14/16 07:45 Nasal Cannula 2.0 Intake and Output 11/13/16 11/13/16 11/14/16 15:00 23:00 07:00 Intake Total 1020 ml 30 ml Output Total 1600 ml 600 ml Balance -580 ml -570 ml Exam Constitutional: alert, well developed Psych: nl mood/affect, no complaints Head: atraumatic, normocephalic Eyes: nl conjunctiva, nl lids ENMT: nl external ears & nose, nl nasal mucosa & septum Neck: non-tender, supple Respiratory: diminished breath sounds Cardiovascular: regular rate and rhythm, systolic murmur Gastrointestinal: non-tender, soft Extremities: edema, No clubbing, No cyanosis Neurological: nl mental status, nl speech Results Result Diagram: 11/14/16 0705 11/14/16 0705 Results 24 hrs Laboratory Tests Test 11/14/16 07:05 11/14/16 07:50 White Blood Count 3.3 L Red Blood Count 2.85 L Hemoglobin 8.8 L Hematocrit 28.1 L Mean Corpuscular Volume 98.6 Mean Corpuscular Hemoglobin 30.9 Mean Corpuscular Hemoglobin Concent 31.3 L Red Cell Distribution Width 13.7 Platelet Count 107 L Mean Platelet Volume 11.9 H Neutrophils % 53.5 Lymphocytes % 28.1 Monocytes % 12.7 H Eosinophils % 5.1 Basophils % 0.6 Nucleated Red Blood Cells % 0.0 Neutrophils # 1.8 Lymphocytes # 0.9 Monocytes # 0.4 Eosinophils # 0.2 Basophils # 0.0 Nucleated Red Blood Cells # 0.0 Sodium Level 133 L Potassium Level 4.6 Chloride Level 100 Carbon Dioxide Level 29 Anion Gap 9 Blood Urea Nitrogen 62 H Creatinine 3.23 H Glucose Level 86 Calcium Level 8.3 L Total Bilirubin 0.3 Direct Bilirubin 0.00 Indirect Bilirubin 0.3 Aspartate Amino Transf (AST/SGOT) 19 Alanine Aminotransferase (ALT/SGPT) 23 Alkaline Phosphatase 63 Total Protein 5.8 L Albumin 3.1 L Globulin 2.70 Albumin/Globulin Ratio 1.14 Prothrombin Time 29.7 H Prothrombin Time Ratio 2.3 INR International Normalized Ratio 2.78 Medications Medications Current Medications Atorvastatin Calcium (Lipitor) 40 mg QHS PO Last administered on 11/13/16 20:51 ; Admin Dose 40 MG; Start 11/09/16 at 21:00 EZETIMIBE (Zetia) 10 mg DAILY PO Last administered on 11/14/16 14:56; Admin Dose 10 MG; Start 11/09/16 at 09:00 Fenofibrate (Tricor) 145 mg DAILY PO Last administered on 11/14/16 14:56; Admin Dose 145 MG; Start 11/09/16 at 09:00 Ranolazine (Ranexa) 500 mg Q12 PO Last administered on 11/14/16 14:56; Admin Dose 500 MG; Start 11/09/16 at 01:00 Pantoprazole (Protonix Tab) 40 mg DAILY@06 PO Last administered on 11/14/16 05: 45; Admin Dose 40 MG; Start 11/09/16 at 06:00 Warfarin Sodium (Coumadin) 4 mg DAILY@17 PO Last administered on 11/13/16 17:37 ; Admin Dose 4 MG; Start 11/09/16 at 17:00; Status Future hold Carvedilol (Coreg) 6.25 mg BID PO Last administered on 11/14/16 14:56; Admin Dose 6.25 MG; Start 11/09/16 at 21:00 Isosorbide Mononitrate (Imdur) 30 mg DAILY PO Last administered on 11/14/16 11: 45; Admin Dose 30 MG; Start 11/10/16 at 09:00 Hydralazine HCl (Apresoline) 10 mg Q4H PRN IV SBP>160; Start 11/09/16 at 17:30 Hydralazine HCl (Apresoline) 25 mg TID PO Last administered on 11/14/16 14:57; Admin Dose 25 MG; Start 11/10/16 at 21:00 Docusate Sodium (Colace) 100 mg BID PO Last administered on 11/14/16 14:55; Admin Dose 100 MG; Start 11/12/16 at 21:00 Polyethylene Glycol (Miralax) 17 gm BID PO Last administered on 11/13/16 09:20 ; Admin Dose 17 GM; Start 11/12/16 at 16:00 Bisacodyl (Dulcolax Supp) 10 mg DAILY [place] Last administered on 11/13/16 14:07; Admin Dose 10 MG; Start 11/13/16 at 10:00 TERRANCE OCAMPO MD Nov 14, 2016 15:31
--- NOTE | 2016-11-14 16:24 | RADRPT ---
PROCEDURE: US Abdomen and Retroperitoneum. CLINICAL INDICATION: Abdominal pain. TECHNIQUE: Multiple real-time longitudinal and transverse images were acquired of the patient's ab domen and retroperitoneum utilizing a curved array transducer. COMPARISON: No prior studies are available for comparison. FINDINGS: The liver is normal in size and echogenicity. The liver has a normal smooth surface. There is no fo charito hepatic lesion. Color Doppler and pulsed Doppler sonography demonstrate normal antegrade flow in the portal vein. The gallbladder is normal with no stones or wall thickening. The bile ducts are normal with the common bile duct measuring 3.6 mm in diameter. The spleen is normal in size. There is no focal splenic lesion. The pancreas is partially seen and is unremarkable. There is no ascites. There are bilateral pleural effusions. The right kidney measures 11.3 x 3.6 x 4.4 cm and the left kidney measures 9.4 x 3.9 x 4.4 cm. There is no renal mass. There is no hydronephrosis or calculus. The abdominal aorta is not dilated. The inferior vena cava is unremarkable. IMPRESSION: 1. Bilateral pleural effusions. 2. Otherwise normal ultrasound of the abdomen and retroperitoneum. RPTAT: QQ .Anatoly Ames MD, MD Date Time Electronically viewed and signed by .Anatoly Ames MD, on 11/14/2016 16:23 .R/
[2016-11-14] MEDS: WARFARIN 2 MG TAB PO SCH (17:34)
--- NOTE | 2016-11-14 18:28 | PN ---
Date/Time of Note Date/Time of Note DATE: 11/14/16 TIME: 18:28 Assessment/Plan VTE Prophylaxis VTE Prophylaxis Intervention: ambulation, anti-embolic stocking VTE Contraindication Reason: peripheral vascular disease Lines/Catheters IV Catheter Type (from Nrsg): Saline Lock Central line still needed: No Urinary Cath still in place: Yes Reason Cath still needed: urinary retention Assessment/Plan Assessment/Plan 1. systolic and diastolic hear failure improved. 2. History of coronary artery disease with coronary artery bypass grafting. 3. History of cardiac arrest, status post ruptured left anterior descending. 4. History of cardiac tamponade. 5. Hypertension-resistant with episodes of crisis . 6. Hyperlipidemia. 7. Atrial fibrillation, rate controlled. 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 21.PMS 22.Constipation-getting worse. 23.Dizziness and ear noises 24.GARY 25.Severe muscular weakness Cont'd Hospitalization Reason: arf Subjective 24 Hr Interval Summary Free Text/Dictation dizziness;dry mouth, anorexia. Constitutional: diaphoresis, disoriented, poor po, requiring IVF, requiring O2 , No chills, No febrile, No improved, No no complaints, No other Eyes: No discharge, No no complaints, No other, No pain, No redness, No visual change ENT: No bleeding, No congestion, No discharge, No dysphagia, No no complaints, No other, No pain, No sore throat Respiratory: pain, pleuritic pain, shortness of breath, No cough, No no complaints, No other, No sputum, No wheezing Cardiovascular: chest pain, lightheadedness, orthopenea, palpitations, No edema, No no complaints, No other, No paroxysmal nocturnal dyspnea Gastrointestinal: constipation, flatus, nausea, passing stool, No blood, No decreased appetite, No diarrhea, No no complaints, No other, No pain, No vomiting Genitourinary: No bleeding, No discharge, No dysuria, No flank pain, No hematuria, No no complaints, No other Musculoskeletal: back pain, bone/joint pain, neck pain, No no complaints, No other, No restricted range of motion, No swelling Skin: pruritis, No bruising, No erythema, No laceration, No no complaints, No other, No rash , No skin lesions Neurologic: dizziness, No confusion, No focal-weakness, No headache, No no complaints, No other, No seizure, No syncope Exam/Review of Systems Vital Signs Vitals Vital Signs Date Time Temp Pulse Resp B/P Pulse Ox O2 Delivery O2 Flow Rate FiO2 11/14/16 16:40 72 11/14/16 15:29 97.5 18 148/69 95 11/14/16 07:45 Nasal Cannula 2.0 Intake and Output 11/13/16 11/13/16 11/14/16 15:00 23:00 07:00 Intake Total 1020 ml 30 ml Output Total 1600 ml 600 ml Balance -580 ml -570 ml Exam Constitutional: alert, frail, oriented, No distress, No non-verbal, No obese, No other, No well developed Psych: anxiety, depression, No confusion, No nl mood/affect, No no complaints, No other, No suicidal Head: atraumatic, normocephalic, No hematomas, No lacerations, No other Eyes: EOMI, PERRL, nl lids ENMT: mucosa pink and moist, nl external ears & nose, tympanic membranes, No intubated, No nl lips & teeth, No nl nasal mucosa & septum, No other Neck: bruits, jvd, No masses, No non-tender, No nuchal rigidity, No other, No supple, No thyromegaly Respiratory: congested cough, diminished breath sounds Cardiovascular: bruits, jugular venous distention (JVD), systolic murmur, No S3, No S4, No diastolic murmur, No edema, No gallop, No irregular rhythm, No murmurs/extra sounds, No nl pulses, No other, No regular rate and rhythm, No rub Gastrointestinal: bowel sounds, No ascites, No distended, No firm, No hepatomegaly, No mass, No nl liver, spleen, No non-tender, No other, No rebound or guarding, No soft, No splenomegaly, No surgical scars, No tender Musculoskeletal: joint tenderness, muscle tone, muscle weakness Extremities: other (right lower medial tibial area dark hyperpigmentation persists.), No calf tenderness, No clubbing, No cyanosis, No edema, No normal pulses, No palpable cord, No pitting pedal edema, No tenderness Neurological: lethargic, numbness, 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, No DTR's symmetric, No confused, No focal weakness, No nl mental status, No nl speech, No nl strength, No other, No reflexes, No unresponsive Skin: No diaphoresis, No ecchymosis, No laceration, No nl turgor, No other, No puncture, No rash or lesions Lymph: No enlarged, No nl lymph nodes, No nontender, No other Results Result Diagram: 11/14/1670411/14/16704 Results 24 hrs Laboratory Tests Test 11/14/16 07:05 11/14/16 07:50 White Blood Count 3.3 L Red Blood Count 2.85 L Hemoglobin 8.8 L Hematocrit 28.1 L Mean Corpuscular Volume 98.6 Mean Corpuscular Hemoglobin 30.9 Mean Corpuscular Hemoglobin Concent 31.3 L Red Cell Distribution Width 13.7 Platelet Count 107 L Mean Platelet Volume 11.9 H Neutrophils % 53.5 Lymphocytes % 28.1 Monocytes % 12.7 H Eosinophils % 5.1 Basophils % 0.6 Nucleated Red Blood Cells % 0.0 Neutrophils # 1.8 Lymphocytes # 0.9 Monocytes # 0.4 Eosinophils # 0.2 Basophils # 0.0 Nucleated Red Blood Cells # 0.0 Sodium Level 133 L Potassium Level 4.6 Chloride Level 100 Carbon Dioxide Level 29 Anion Gap 9 Blood Urea Nitrogen 62 H Creatinine 3.23 H Glucose Level 86 Calcium Level 8.3 L Total Bilirubin 0.3 Direct Bilirubin 0.00 Indirect Bilirubin 0.3 Aspartate Amino Transf (AST/SGOT) 19 Alanine Aminotransferase (ALT/SGPT) 23 Alkaline Phosphatase 63 Total Protein 5.8 L Albumin 3.1 L Globulin 2.70 Albumin/Globulin Ratio 1.14 Prothrombin Time 29.7 H Prothrombin Time Ratio 2.3 INR International Normalized Ratio 2.78 Medications Medications Current Medications Atorvastatin Calcium (Lipitor) 40 mg QHS PO Last administered on 11/13/16t 20:51 ; Admin Dose 40 MG; Start 11/09/16 at 21:00 EZETIMIBE (Zetia) 10 mg DAILY PO Last administered on 11/14/16 14:56; Admin Dose 10 MG; Start 11/09/16 at 09:00 Fenofibrate (Tricor) 145 mg DAILY PO Last administered on 11/14/16 14:56; Admin Dose 145 MG; Start 11/09/16 at 09:00 Ranolazine (Ranexa) 500 mg Q12 PO Last administered on 11/14/16 14:56; Admin Dose 500 MG; Start 11/09/16 at 01:00 Pantoprazole (Protonix Tab) 40 mg DAILY@06 PO Last administered on 11/14/16 05: 45; Admin Dose 40 MG; Start 11/09/16 at 06:00 Warfarin Sodium (Coumadin) 4 mg DAILY@17 PO Last administered on 11/14/16 17:34 ; Admin Dose 4 MG; Start 11/09/16 at 17:00; Status Future hold Carvedilol (Coreg) 6.25 mg BID PO Last administered on 11/14/16 14:56; Admin Dose 6.25 MG; Start 11/09/16 at 21:00 Isosorbide Mononitrate (Imdur) 30 mg DAILY PO Last administered on 11/14/16 11: 45; Admin Dose 30 MG; Start 11/10/16 at 09:00 Hydralazine HCl (Apresoline) 10 mg Q4H PRN IV SBP>160; Start 11/09/16 at 17:30 Hydralazine HCl (Apresoline) 25 mg TID PO Last administered on 11/14/16 14:57; Admin Dose 25 MG; Start 11/10/16 at 21:00 Docusate Sodium (Colace) 100 mg BID PO Last administered on 11/14/16 14:55; Admin Dose 100 MG; Start 11/12/16 at 21:00 Polyethylene Glycol (Miralax) 17 gm BID PO Last administered on 11/13/16 09:20 ; Admin Dose 17 GM; Start 11/12/16 at 16:00 Bisacodyl (Dulcolax Supp) 10 mg DAILY [place] Last administered on 11/13/16 14:07; Admin Dose 10 MG; Start 11/13/16 at 10:00 LAURA DENT MD Nov 14, 2016 18:28
[2016-11-14 20:17] LABS: ALBUMIN 3.2 g/dl (3.3-4.9); ALBUMIN/GLOBULIN RATIO 1.18; BILIRUBIN,INDIRECT 0.2 mg/dl (0-1.1); BILIRUBIN,TOTAL 0.2 mg/dl (0.2-1.3); CALCIUM 8.4 mg/dl (8.4-10.2); CREATININE 3.26 mg/dl (0.44-1.00); POTASSIUM 4.4 mmol/L (3.5-5.1); TOTAL PROTEIN 5.9 g/dl (6.1-8.1)
[2016-11-14] MEDS: 1/2 NS + KCL 20 MEQ 1,000 ML IV SCH (22:30)
[2016-11-14] MEDS: ATORVASTATIN 40 MG TAB PO SCH (22:30)
--- NOTE | 2016-11-14 23:09 | CONS ---
Date/Time of Note Date/Time of Note DATE: 11/14/16 TIME: 23:07 Assessment/Plan Assessment/Plan Chief Complaint/Hosp Course PANCYTOPENIA WITH LEUKOPENIA SINCE 02.21 ANEMIA, CHRONIC , COMPLETE W-UP THROMBOCYTOPENIA- FROM 2014 MONITOR BLOOD COUNT CLOSELY OBSERVE FOR BLEEDING AND HEMOLYSIS ABD US- N CONSIDER BMBX Bilateral pleural effusions. Acute on chronic combined systolic/diastolic heart failure - improved with diuresis Ischemic cardiomyopathy, LVEF 35-40% Coronary artery disease - history of myocardial infarction with coronary rupture and subsequent CABG Accelerated hypertension - blood pressures now improved and with hypotension Mild aortic stenosis Dyslipidemia Chronic atrial fibrillation Acute kidney injury on chronic kidney disease Problems: Consultation Date/Type/Reason Admit Date/Time Nov 08, 2016 at 23:12 Type of Consultation: HEMEONC Reason for Consultation ANEMIA PANCYTOPENIA Referring Provider: LAURA DENT MD 24 HR Interval Summary Free Text/Dictation Overall improved. Shortness of breath improved, but apparently still requiring nasal canula. COUNT STABLE NO BLEEDING Exam/Review of Systems Vital Signs Vitals Vital Signs Date Time Temp Pulse Resp B/P Pulse Ox O2 Delivery O2 Flow Rate FiO2 11/14/16 20:09 50 11/14/16 15:29 97.5 18 148/69 95 11/14/16 07:45 Nasal Cannula 2.0 Intake and Output 11/13/16 11/13/16 11/14/16 15:00 23:00 07:00 Intake Total 1020 ml 30 ml Output Total 1600 ml 600 ml Balance -580 ml -570 ml Exam Constitutional: alert, well developed Psych: nl mood/affect, no complaints Head: atraumatic, normocephalic Eyes: nl conjunctiva, nl lids ENMT: nl external ears & nose, nl nasal mucosa & septum Neck: non-tender, supple Respiratory: diminished breath sounds Cardiovascular: regular rate and rhythm, systolic murmur Gastrointestinal: non-tender, soft Extremities: edema, No clubbing, No cyanosis Neurological: nl mental status, nl speech Results Result Diagram: 11/14/16 0711/14/161939 Results 24 hrs Laboratory Tests Test 11/14/16 07:05 11/14/16 07:50 11/14/16 19:40 White Blood Count 3.3 L Red Blood Count 2.85 L Hemoglobin 8.8 L Hematocrit 28.1 L Mean Corpuscular Volume 98.6 Mean Corpuscular Hemoglobin 30.9 Mean Corpuscular Hemoglobin Concent 31.3 L Red Cell Distribution Width 13.7 Platelet Count 107 L Mean Platelet Volume 11.9 H Neutrophils % 53.5 Lymphocytes % 28.1 Monocytes % 12.7 H Eosinophils % 5.1 Basophils % 0.6 Nucleated Red Blood Cells % 0.0 Neutrophils # 1.8 Lymphocytes # 0.9 Monocytes # 0.4 Eosinophils # 0.2 Basophils # 0.0 Nucleated Red Blood Cells # 0.0 Sodium Level 133 L 134 L Potassium Level 4.6 4.4 Chloride Level 100 100 Carbon Dioxide Level 29 28 Anion Gap 9 10 Blood Urea Nitrogen 62 H 62 H Creatinine 3.23 H 3.26 H Glucose Level 86 126 # Calcium Level 8.3 L 8.4 Total Bilirubin 0.3 0.2 Direct Bilirubin 0.00 0.00 Indirect Bilirubin 0.3 0.2 Aspartate Amino Transf (AST/SGOT) 19 19 Alanine Aminotransferase (ALT/SGPT) 23 21 Alkaline Phosphatase 63 65 Total Protein 5.8 L 5.9 L Albumin 3.1 L 3.2 L Globulin 2.70 2.70 Albumin/Globulin Ratio 1.14 1.18 Prothrombin Time 29.7 H Prothrombin Time Ratio 2.3 INR International Normalized Ratio 2.78 Medications Medications Current Medications Atorvastatin Calcium (Lipitor) 40 mg QHS PO Last administered on 11/14/16 22:30 ; Admin Dose 40 MG; Start 11/09/16 at 21:00 EZETIMIBE (Zetia) 10 mg DAILY PO Last administered on 11/14/16 14:56; Admin Dose 10 MG; Start 11/09/16 at 09:00 Fenofibrate (Tricor) 145 mg DAILY PO Last administered on 11/14/16 14:56; Admin Dose 145 MG; Start 11/09/16 at 09:00 Ranolazine (Ranexa) 500 mg Q12 PO Last administered on 11/14/16 22:31; Admin Dose 500 MG; Start 11/09/16 at 01:00 Pantoprazole (Protonix Tab) 40 mg DAILY@06 PO Last administered on 11/14/16 05: 45; Admin Dose 40 MG; Start 11/09/16 at 06:00 Warfarin Sodium (Coumadin) 4 mg DAILY@17 PO Last administered on 11/14/16 17:34 ; Admin Dose 4 MG; Start 11/09/16 at 17:00; Status Future hold Carvedilol (Coreg) 6.25 mg BID PO Last administered on 11/14/16 14:56; Admin Dose 6.25 MG; Start 11/09/16 at 21:00 Isosorbide Mononitrate (Imdur) 30 mg DAILY PO Last administered on 11/14/16 11: 45; Admin Dose 30 MG; Start 11/10/16 at 09:00 Hydralazine HCl (Apresoline) 10 mg Q4H PRN IV SBP>160; Start 11/09/16 at 17:30 Hydralazine HCl (Apresoline) 25 mg TID PO Last administered on 11/14/16 22:31; Admin Dose 25 MG; Start 11/10/16 at 21:00 Docusate Sodium (Colace) 100 mg BID PO Last administered on 11/14/16 14:55; Admin Dose 100 MG; Start 11/12/16 at 21:00 Polyethylene Glycol (Miralax) 17 gm BID PO Last administered on 11/13/16 09:20 ; Admin Dose 17 GM; Start 11/12/16 at 16:00 Bisacodyl 10 mg 10 mg DAILY [place] Last administered on 11/13/16 14:07; Admin Dose 10 MG; Start 11/13/16 at 10:00 Potassium Chloride/Sodium Chloride (1/2 NS + KCl 20 Meq) 1,000 ml @ 100 mls/hr Q10H IV Last administered on 11/14/16 22:30; Admin Dose 100 MLS/HR; Start at 19:00 Procedures Procedures [place] [address] Radiology Main Line: [phone] DIAGNOSTIC IMAGING REPORT Patient: ANDREINA GOYAL : 1945 Age: 71 Sex: F MR #: [id number] DOS: 11/14/16 0900 Ordering MD: MANDIE MALAVE MD Location: [facility] [place] Room[place]Bed: [facility] PROCEDURE: US Abdomen and Retroperitoneum. CLINICAL INDICATION: Abdominal pain. TECHNIQUE: Multiple real-time longitudinal and transverse images were acquired of the patient's abdomen and retroperitoneum utilizing a curved array transducer. COMPARISON: No prior studies are available for comparison. FINDINGS: The liver is normal in size and echogenicity. The liver has a normal smooth surface. There is no focal hepatic lesion. Color Doppler and pulsed Doppler sonography demonstrate normal antegrade flow in the portal vein. The gallbladder is normal with no stones or wall thickening. The bile ducts are normal with the common bile duct measuring 3.6 mm in diameter. The spleen is normal in size. There is no focal splenic lesion. The pancreas is partially seen and is unremarkable. There is no ascites. There are bilateral pleural effusions. The right kidney measures 11.3 x 3.6 x 4.4 cm and the left kidney measures 9.4 x 3.9 x 4.4 cm. There is no renal mass. There is no hydronephrosis or calculus. The abdominal aorta is not dilated. The inferior vena cava is unremarkable. IMPRESSION: 1. Bilateral pleural effusions. 2. Otherwise normal ultrasound of the abdomen and retroperitoneum. RPTAT: QQ .Anatoly Ames MD, MD Date Time Electronically viewed and signed by .Anatoly Ames MD, on 11/14/2016 16:23 .R/ CC: MANDIE MALAVE MD, VERA M MD Nov 14, 2016 23:09
[2016-11-15] VITALS (13 sets, daily range): BP systolic 106–136; BP diastolic 52–65; PULSE 40–64; RESP 16–61
[2016-11-15] MEDS: 1/2 NS + KCL 20 MEQ 1,000 ML IV SCH (05:00)
[2016-11-15] MEDS: PANTOPRAZOLE (EC) 40 MG TAB PO SCH (06:00)
--- NOTE | 2016-11-15 08:07 | PN ---
Date/Time of Note Date/Time of Note DATE: 11/15/16 TIME: 07:51 Assessment/Plan VTE Prophylaxis VTE Prophylaxis Intervention: ambulation, anti-embolic stocking VTE Contraindication Reason: peripheral vascular disease Lines/Catheters IV Catheter Type (from Nrsg): Saline Lock Central line still needed: No Urinary Cath still in place: Yes Reason Cath still needed: urinary retention Assessment/Plan Assessment/Plan 1. systolic and diastolic hear failure improved. 2. History of coronary artery disease with coronary artery bypass grafting. 3. History of cardiac arrest, status post ruptured left anterior descending. 4. History of cardiac tamponade. 5. Hypertension-resistant with episodes of crisis . 6. Hyperlipidemia. 7. Atrial fibrillation-persists, rate controlled. 8. Chest pain, need to rule out acute coronary syndrome 9. Anemia of chronic disease-further decrease of hct. 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 21.PMS 22.Constipation-getting worse. 23.Dizziness and ear noises 24.GARY 25.Severe muscular weakness Cont'd Hospitalization Reason: am labs pending. Subjective 24 Hr Interval Summary Free Text/Dictation Dry mouth less prominent. Constitutional: poor po, requiring IVF, requiring O2, No chills, No diaphoresis, No disoriented, No febrile, No improved, No no complaints, No other Eyes: No discharge, No no complaints, No other, No pain, No redness, No visual change ENT: No bleeding, No congestion, No discharge, No dysphagia, No no complaints, No other, No pain, No sore throat Respiratory: cough, other (reported of having a 02 sat 86%.Will check.), shortness of breath Cardiovascular: chest pain, lightheadedness, orthopenea, No edema, No no complaints, No other, No palpitations, No paroxysmal nocturnal dyspnea Gastrointestinal: constipation, pain, passing stool, No blood, No decreased appetite, No diarrhea, No flatus, No nausea, No no complaints, No other, No vomiting Genitourinary: No bleeding, No discharge, No dysuria, No flank pain, No hematuria, No no complaints, No other Skin: No bruising, No erythema, No laceration, No no complaints, No other, No pruritis, No rash, No skin lesions Neurologic: dizziness, headache, No confusion, No focal-weakness, No no complaints, No other, No seizure, No syncope Psychological: depression Exam/Review of Systems Vital Signs Vitals Vital Signs Date Time Temp Pulse Resp B/P Pulse Ox O2 Delivery O2 Flow Rate FiO2 11/15/16 07:46 98.0 62 20 136/64 94 11/15/16 01:54 Nasal Cannula 2.0 11/14/16 22:00 21 Intake and Output 11/14/16 11/14/16 11/15/16 15:00 23:00 07:00 Intake Total 500 ml Output Total 1000 ml Balance -500 ml Exam Constitutional: alert, distress, frail, obese, oriented, well developed, No non-verbal, No other Psych: anxiety, No confusion, No depression, No nl mood/affect, No no complaints, No other, No suicidal Head: No atraumatic, No hematomas, No lacerations, No normocephalic, No other Eyes: EOMI, PERRL, nl lids, No fundi, disc, No icteric, No nl conjunctiva, No nl sclera, No other ENMT: nl lips & teeth, No intubated, No mucosa pink and moist, No nl external ears & nose, No nl nasal mucosa & septum, No other, No tympanic membranes Neck: bruits, No jvd, No masses, No non-tender, No nuchal rigidity, No other, No supple, No thyromegaly Respiratory: congested cough, diminished breath sounds, No clear to auscultation, No crackles/rales, No intercostal retraction, No labored breathing, No normal air movement, No other, No respirations, No tactile fremitus, No wheezing Cardiovascular: bruits, murmurs/extra sounds, systolic murmur, No S3, No S4, No diastolic murmur, No edema, No gallop, No irregular rhythm, No jugular venous distention (JVD), No nl pulses, No other, No regular rate and rhythm, No rub Gastrointestinal: bowel sounds, distended, nl liver, spleen, No ascites, No firm, No hepatomegaly, No mass, No non-tender, No other, No rebound or guarding, No soft, No splenomegaly, No surgical scars, No tender Genitourinary - Female: No CMT, No CVA tenderness, No nl adnexae, No nl external genitalia, No other, No uterus Neurological: METAL BUILDING ASSEMBLER II-XII intact, confused, numbness, No DTR's symmetric, No focal weakness, No lethargic, No nl mental status, No nl speech, No nl strength, No other, No reflexes, No unresponsive Skin: rash or lesions, No diaphoresis, No ecchymosis, No laceration, No nl turgor, No other, No puncture Results Result Diagram: 11/14/1670411/14/161939 Results 24 hrs Laboratory Tests Test 11/14/16 19:40 Sodium Level 134 L Potassium Level 4.4 Chloride Level 100 Carbon Dioxide Level 28 Anion Gap 10 Blood Urea Nitrogen 62 H Creatinine 3.26 H Glucose Level 126 # Calcium Level 8.4 Total Bilirubin 0.2 Direct Bilirubin 0.00 Indirect Bilirubin 0.2 Aspartate Amino Transf (AST/SGOT) 19 Alanine Aminotransferase (ALT/SGPT) 21 Alkaline Phosphatase 65 Total Protein 5.9 L Albumin 3.2 L Globulin 2.70 Albumin/Globulin Ratio 1.18 Medications Medications Current Medications Atorvastatin Calcium (Lipitor) 40 mg QHS PO Last administered on 11/14/16 22:30 ; Admin Dose 40 MG; Start 11/09/16 at 21:00 EZETIMIBE (Zetia) 10 mg DAILY PO Last administered on 11/14/16 14:56; Admin Dose 10 MG; Start 11/09/16 at 09:00 Fenofibrate (Tricor) 145 mg DAILY PO Last administered on 11/14/16 14:56; Admin Dose 145 MG; Start 11/09/16 at 09:00 Ranolazine (Ranexa) 500 mg Q12 PO Last administered on 11/14/16 22:31; Admin Dose 500 MG; Start 11/09/16 at 01:00 Pantoprazole (Protonix Tab) 40 mg DAILY@06 PO Last administered on 11/15/16 06: 00; Admin Dose 40 MG; Start 11/09/16 at 06:00 Warfarin Sodium (Coumadin) 4 mg DAILY@17 PO Last administered on 11/14/16 17:34 ; Admin Dose 4 MG; Start 11/09/16 at 17:00; Status Future hold Carvedilol (Coreg) 6.25 mg BID PO Last administered on 11/14/16 14:56; Admin Dose 6.25 MG; Start 11/09/16 at 21:00 Isosorbide Mononitrate (Imdur) 30 mg DAILY PO Last administered on 11/14/16 11: 45; Admin Dose 30 MG; Start 11/10/16 at 09:00 Hydralazine HCl (Apresoline) 10 mg Q4H PRN IV SBP>160; Start 11/09/16 at 17:30 Hydralazine HCl (Apresoline) 25 mg TID PO Last administered on 11/14/16 22:31; Admin Dose 25 MG; Start 11/10/16 at 21:00 Docusate Sodium (Colace) 100 mg BID PO Last administered on 11/14/16 14:55; Admin Dose 100 MG; Start 11/12/16 at 21:00 Polyethylene Glycol (Miralax) 17 gm BID PO Last administered on 11/13/16 09:20 ; Admin Dose 17 GM; Start 11/12/16 at 16:00 Bisacodyl 10 mg 10 mg DAILY [place] Last administered on 11/13/16 14:07; Admin Dose 10 MG; Start 11/13/16 at 10:00 Potassium Chloride/Sodium Chloride (1/2 NS + KCl 20 Meq) 1,000 ml @ 100 mls/hr Q10H IV Last administered on 11/14/16 22:30; Admin Dose 100 MLS/HR; Start at 19:00 LAURA DENT MD Nov 15, 2016 08:01
[2016-11-15 08:14] LABS: ADD SCAN DIFF NO
[2016-11-15 08:19] LABS: ALBUMIN 2.9 g/dl (3.3-4.9)
[2016-11-15 08:20] LABS: POTASSIUM 4.7 mmol/L (3.5-5.1)
[2016-11-15 08:22] LABS: ALBUMIN/GLOBULIN RATIO 1.03; BILIRUBIN,INDIRECT 0.3 mg/dl (0-1.1); BILIRUBIN,TOTAL 0.3 mg/dl (0.2-1.3); CREATININE 3.24 mg/dl (0.44-1.00); TOTAL PROTEIN 5.7 g/dl (6.1-8.1)
[2016-11-15] MEDS: ISOSORBIDE MONONITRATE(SR)30 MG TAB PO SCH (08:22)
[2016-11-15] MEDS: DOCUSATE SODIUM 100 MG CAP PO SCH ×2 (08:22→20:10)
[2016-11-15] MEDS: EZETIMIBE 10 MG TAB PO SCH (08:22)
[2016-11-15] MEDS: RANOLAZINE (SR) 500 MG TAB PO SCH ×2 (08:22→20:10)
[2016-11-15] MEDS: FENOFIBRATE 145 MG TAB PO SCH (08:22)
[2016-11-15] MEDS: POLYETHYLENE GLYCOL 17 GM PACKET PO SCH ×2 (08:22→20:11)
[2016-11-15 08:23] LABS: BASOPHILS % 0.3 % (0.0-2.0); CALCIUM 8.4 mg/dl (8.4-10.2); EOSINOPHILS # 0.1 10^3/ul (0.0-0.5); EOSINOPHILS % 3.7 % (0.0-7.0); HEMATOCRIT 27.2 % (37.0-47.0); HEMOGLOBIN 8.6 g/dl (12.0-16.0); LYMPHOCYTES # 0.7 10^3/ul (0.8-2.9); MEAN CORPUSCULAR HEMOGLOBIN 31.2 pg (29.0-33.0); MEAN CORPUSCULAR HGB CONC 31.6 g/dl (32.0-37.0); MEAN CORPUSCULAR VOLUME 98.6 fl (82.0-101.0); MEAN PLATELET VOLUME 11.4 fl (7.4-10.4); MONOCYTE # 0.3 10^3/ul (0.3-0.9); MONOCYTES % 9.2 % (0.0-11.0); NEUTROPHIL # 2.3 10^3/ul (1.6-7.5); NEUTROPHILS % 65.5 % (39.0-77.0); PLATELET COUNT 100 10^3/UL (140-415); RED BLOOD COUNT 2.76 10^6/ul (4.20-5.40); RED CELL DISTRIBUTION WIDTH 13.8 % (11.5-14.5); WHITE BLOOD COUNT 3.5 10^3/ul (4.8-10.8)
[2016-11-15] MEDS: BISACODYL 10 MG SUPP PR SCH (08:23)
[2016-11-15 08:35] LABS: INR 3.68; PROTIME 37.1 Sec (12.2-14.2); PT RATIO 2.9
[2016-11-15 08:44] LABS: IRON 33 ug/dl (35-150)
[2016-11-15 08:53] LABS: TOTAL IRON BINDING CAPACITY 312 ug/dl (241-421)
--- NOTE | 2016-11-15 11:22 | CONS ---
Date/Time of Note Date/Time of Note DATE: 11/15/16 TIME: 11:15 Assessment/Plan Assessment/Plan Chief Complaint/Hosp Course Acute on chronic combined systolic/diastolic heart failure - EF 35%. In my opinion, she is still in heart failure based on significantly elevated JVP ( partially may be from TR). Ischemic cardiomyopathy, LVEF 35-40% Coronary artery disease - history of myocardial infarction with coronary rupture and subsequent CABG Accelerated hypertension - blood pressures now improved Mild aortic stenosis Dyslipidemia Chronic atrial fibrillation: controlled rates. INR now elevated Acute kidney injury on chronic kidney disease: now stable ~3.2 -will hold IVF -consider restarting low dose lasix despite renal function -continue carvedilol 6.25mg BID, hydralazine 25mg TID, Imdur 30mg daily -continue ranolazine 500mg BID -continue atorvastatin 40mg daily - ? need for Zetia and Tricor (will defer to outpatient music promoter, Dr. Segovia) -continue warfarin with goal INR 2-3 (hold today as INR elevated) Problems: Consultation Date/Type/Reason Admit Date/Time Nov 08, 2016 at 23:12 Initial Consult Date 11/10/16 Type of Consultation: Cardiology Referring Provider: LAURA DENT MD 24 HR Interval Summary Free Text/Dictation No o/n events. Breathing better. Exam/Review of Systems Vital Signs Vitals Vital Signs Date Time Temp Pulse Resp B/P Pulse Ox O2 Delivery O2 Flow Rate FiO2 11/15/16 08:25 64 11/15/16 08:00 Nasal Cannula 2.0 11/15/16 07:46 98.0 20 136/64 94 11/14/16 22:00 21 Intake and Output 11/14/16 11/14/16 11/15/16 15:00 23:00 07:00 Intake Total 500 ml 1050 ml Output Total 1000 ml 600 ml Balance -500 ml 450 ml Exam Constitutional: alert, oriented Head: atraumatic, normocephalic Neck: jvd (10cm) Respiratory: No clear to auscultation (bibasilar crackles, decreased breath sounds) Cardiovascular: edema (1+), systolic murmur (2/6 HALLIE), No regular rate and rhythm (IRIR) Gastrointestinal: non-tender, soft Neurological: nl mental status, nl speech Results Result Diagram: 11/15/16 0645 11/15/16 0645 Results 24 hrs Laboratory Tests Test 11/14/16 19:40 11/15/16 06:45 Sodium Level 134 L 136 Potassium Level 4.4 4.7 Chloride Level 100 98 Carbon Dioxide Level 28 28 Anion Gap 10 15 Blood Urea Nitrogen 62 H 63 H Creatinine 3.26 H 3.24 H Glucose Level 126 # 89 Calcium Level 8.4 8.4 Total Bilirubin 0.2 0.3 Direct Bilirubin 0.00 0.00 Indirect Bilirubin 0.2 0.3 Aspartate Amino Transf (AST/SGOT) 19 20 Alanine Aminotransferase (ALT/SGPT) 21 20 Alkaline Phosphatase 65 60 Total Protein 5.9 L 5.7 L Albumin 3.2 L 2.9 L Globulin 2.70 2.80 Albumin/Globulin Ratio 1.18 1.03 White Blood Count 3.5 L Red Blood Count 2.76 L Hemoglobin 8.6 L Hematocrit 27.2 L Mean Corpuscular Volume 98.6 Mean Corpuscular Hemoglobin 31.2 Mean Corpuscular Hemoglobin Concent 31.6 L Red Cell Distribution Width 13.8 Platelet Count 100 L Mean Platelet Volume 11.4 H Neutrophils % 65.5 Lymphocytes % 21.0 Monocytes % 9.2 Eosinophils % 3.7 Basophils % 0.3 Nucleated Red Blood Cells % 0.0 Neutrophils # 2.3 Lymphocytes # 0.7 L Monocytes # 0.3 Eosinophils # 0.1 Basophils # 0.0 Nucleated Red Blood Cells # 0.0 Prothrombin Time 37.1 #H Prothrombin Time Ratio 2.9 INR International Normalized Ratio 3.68 Magnesium Level 2.2 Iron Level 33 L Total Iron Binding Capacity 312 Percent Iron Saturation 11 L Medications Medications Current Medications Atorvastatin Calcium (Lipitor) 40 mg QHS PO Last administered on 11/14/16 22:30 ; Admin Dose 40 MG; Start 11/09/16 at 21:00 EZETIMIBE (Zetia) 10 mg DAILY PO Last administered on 11/15/16 08:22; Admin Dose 10 MG; Start 11/09/16 at 09:00 Fenofibrate (Tricor) 145 mg DAILY PO Last administered on 11/15/16 08:22; Admin Dose 145 MG; Start 11/09/16 at 09:00 Ranolazine (Ranexa) 500 mg Q12 PO Last administered on 11/15/16 08:22; Admin Dose 500 MG; Start 11/09/16 at 01:00 Pantoprazole (Protonix Tab) 40 mg DAILY@06 PO Last administered on 11/15/16 06: 00; Admin Dose 40 MG; Start 11/09/16 at 06:00 Warfarin Sodium (Coumadin) 4 mg DAILY@17 PO Last administered on 11/14/16 17:34 ; Admin Dose 4 MG; Start 11/09/16 at 17:00; Status Future Hold Carvedilol (Coreg) 6.25 mg BID PO Last administered on 11/15/16 08:23; Admin Dose 6.25 MG; Start 11/09/16 at 21:00 Isosorbide Mononitrate (Imdur) 30 mg DAILY PO Last administered on 11/15/16 08: 22; Admin Dose 30 MG; Start 11/10/16 at 09:00 Hydralazine HCl (Apresoline) 10 mg Q4H PRN IV SBP>160; Start 11/09/16 at 17:30 Hydralazine HCl (Apresoline) 25 mg TID PO Last administered on 11/15/16 08:23; Admin Dose 25 MG; Start 11/10/16 at 21:00 Docusate Sodium (Colace) 100 mg BID PO Last administered on 11/15/16 08:22; Admin Dose 100 MG; Start 11/12/16 at 21:00 Polyethylene Glycol (Miralax) 17 gm BID PO Last administered on 11/15/16 08:22 ; Admin Dose 17 GM; Start 11/12/16 at 16:00 Bisacodyl 10 mg 10 mg DAILY [place] Last administered on 11/13/16 14:07; Admin Dose 10 MG; Start 11/13/16 at 10:00 Potassium Chloride/Sodium Chloride (1/2 NS + KCl 20 Meq) 1,000 ml @ 100 mls/hr Q10H IV Last administered on 11/14/16 22:30; Admin Dose 100 MLS/HR; Start at 19:00 ADEN GRAVES Nov 15, 2016 11:22
--- NOTE | 2016-11-15 11:58 | RADRPT ---
PROCEDURE: XR Chest. CLINICAL INDICATION: Shortness of breath. TECHNIQUE: Single frontal view. COMPARISON: 11/09/2016. FINDINGS: There is bilateral pulmonary air space disease consistent with pulmonary edema, slightly worse than seen previously. Bibasilar atelectasis is also worse than seen previously. The heart is enlarged. There is calcification in the aorta consistent with atherosclerosis. There are sternal wires. Moderate bilateral pleural effusions are larger than seen previously. There is no pneumothorax. IMPRESSION: 1. Worse appearance of the lungs and larger bilateral pleural effusions. 2. Cardiomegaly and atherosclerosis. 3. Previous median sternotomy. RPTAT: QQ .Anatoly Ames MD, MD Date Time Electronically viewed and signed by .Anatoly Ames MD, MD on 11/15/2016 11:57 .R/
[2016-11-15] MEDS: ATORVASTATIN 40 MG TAB PO SCH (20:10)
--- NOTE | 2016-11-15 23:23 | CONS ---
Date/Time of Note Date/Time of Note DATE: 11/15/16 TIME: 23:22 Assessment/Plan Assessment/Plan Chief Complaint/Hosp Course PANCYTOPENIA WITH LEUKOPENIA SINCE 02.21 ANEMIA, CHRONIC , COMPLETE W-UP THROMBOCYTOPENIA- FROM 2014 MONITOR BLOOD COUNT CLOSELY OBSERVE FOR BLEEDING AND HEMOLYSIS ABD US- N CONSIDER BMBX Bilateral pleural effusions. Acute on chronic combined systolic/diastolic heart failure - improved with diuresis Ischemic cardiomyopathy, LVEF 35-40% Coronary artery disease - history of myocardial infarction with coronary rupture and subsequent CABG Accelerated hypertension - blood pressures now improved and with hypotension Mild aortic stenosis Dyslipidemia Chronic atrial fibrillation Acute kidney injury on chronic kidney disease Problems: Consultation Date/Type/Reason Admit Date/Time Nov 08, 2016 at 23:12 Type of Consultation: HEMEON Referring Provider: LAURA DENT MD 24 HR Interval Summary Free Text/Dictation ALL NOTED NO NEW EVENTS NO BLEEDING Exam/Review of Systems Vital Signs Vitals Vital Signs Date Time Temp Pulse Resp B/P Pulse Ox O2 Delivery O2 Flow Rate FiO2 11/15/16 20:35 97.8 61 61 136/64 97 11/15/16 19:00 Nasal Cannula 2.0 11/14/16 22:00 21 Intake and Output 11/14/16 11/14/16 11/15/16 15:00 23:00 07:00 Intake Total 500 ml 1050 ml Output Total 1000 ml 600 ml Balance -500 ml 450 ml Exam Constitutional: alert, oriented Head: atraumatic, normocephalic Neck: jvd (10cm) Respiratory: No clear to auscultation (bibasilar crackles, decreased breath sounds) Cardiovascular: edema (1+), systolic murmur (2/6 HALLIE), No regular rate and rhythm (IRIR) Gastrointestinal: non-tender, soft Neurological: nl mental status, nl speech Results Result Diagram: 11/15/16 0645 11/15/16 0645 Results 24 hrs Laboratory Tests Test 11/15/16 06:45 White Blood Count 3.5 L Red Blood Count 2.76 L Hemoglobin 8.6 L Hematocrit 27.2 L Mean Corpuscular Volume 98.6 Mean Corpuscular Hemoglobin 31.2 Mean Corpuscular Hemoglobin Concent 31.6 L Red Cell Distribution Width 13.8 Platelet Count 100 L Mean Platelet Volume 11.4 H Neutrophils % 65.5 Lymphocytes % 21.0 Monocytes % 9.2 Eosinophils % 3.7 Basophils % 0.3 Nucleated Red Blood Cells % 0.0 Neutrophils # 2.3 Lymphocytes # 0.7 L Monocytes # 0.3 Eosinophils # 0.1 Basophils # 0.0 Nucleated Red Blood Cells # 0.0 Prothrombin Time 37.1 #H Prothrombin Time Ratio 2.9 INR International Normalized Ratio 3.68 Sodium Level 136 Potassium Level 4.7 Chloride Level 98 Carbon Dioxide Level 28 Anion Gap 15 Blood Urea Nitrogen 63 H Creatinine 3.24 H Glucose Level 89 Calcium Level 8.4 Magnesium Level 2.2 Iron Level 33 L Total Iron Binding Capacity 312 Percent Iron Saturation 11 L Total Bilirubin 0.3 Direct Bilirubin 0.00 Indirect Bilirubin 0.3 Aspartate Amino Transf (AST/SGOT) 20 Alanine Aminotransferase (ALT/SGPT) 20 Alkaline Phosphatase 60 Total Protein 5.7 L Albumin 2.9 L Globulin 2.80 Albumin/Globulin Ratio 1.03 Medications Medications Current Medications Atorvastatin Calcium (Lipitor) 40 mg QHS PO Last administered on 11/15/16 20:10 ; Admin Dose 40 MG; Start 11/09/16 at 21:00 EZETIMIBE (Zetia) 10 mg DAILY PO Last administered on 11/15/16 08:22; Admin Dose 10 MG; Start 11/09/16 at 09:00 Fenofibrate (Tricor) 145 mg DAILY PO Last administered on 11/15/16 08:22; Admin Dose 145 MG; Start 11/09/16 at 09:00 Ranolazine (Ranexa) 500 mg Q12 PO Last administered on 11/15/16 20:10; Admin Dose 500 MG; Start 11/09/16 at 01:00 Pantoprazole (Protonix Tab) 40 mg DAILY@06 PO Last administered on 11/15/16 06: 00; Admin Dose 40 MG; Start 11/09/16 at 06:00 Warfarin Sodium (Coumadin) 4 mg DAILY@17 PO Last administered on 11/14/16 17:34 ; Admin Dose 4 MG; Start 11/09/16 at 17:00; Status Future Hold Carvedilol (Coreg) 6.25 mg BID PO Last administered on 11/15/16 08:23; Admin Dose 6.25 MG; Start 11/09/16 at 21:00 Isosorbide Mononitrate (Imdur) 30 mg DAILY PO Last administered on 11/15/16 08: 22; Admin Dose 30 MG; Start 11/10/16 at 09:00 Hydralazine HCl (Apresoline) 10 mg Q4H PRN IV SBP>160; Start 11/09/16 at 17:30 Hydralazine HCl (Apresoline) 25 mg TID PO Last administered on 11/15/16 20:10; Admin Dose 25 MG; Start 11/10/16 at 21:00 Docusate Sodium (Colace) 100 mg BID PO Last administered on 11/15/16 20:10; Admin Dose 100 MG; Start 11/12/16 at 21:00 Polyethylene Glycol (Miralax) 17 gm BID PO Last administered on 11/15/16 20:11 ; Admin Dose 17 GM; Start 11/12/16 at 16:00 Bisacodyl (Dulcolax Supp) 10 mg DAILY [place] Last administered on 11/13/16 14:07; Admin Dose 10 MG; Start 11/13/16 at 10:00 MANDIE MALAVE MD Nov 15, 2016 23:23
[2016-11-16] VITALS (12 sets, daily range): BP systolic 122–170; BP diastolic 65–80; PULSE 50–69; RESP 18–20
[2016-11-16] MEDS: PANTOPRAZOLE (EC) 40 MG TAB PO SCH (05:04)
[2016-11-16 06:43] LABS: INR 4.51; PROTIME 43.6 Sec (12.2-14.2); PT RATIO 3.4
[2016-11-16] MEDS: BISACODYL 10 MG SUPP PR SCH (09:00)
[2016-11-16] MEDS: EZETIMIBE 10 MG TAB PO SCH (09:50)
[2016-11-16] MEDS: ISOSORBIDE MONONITRATE(SR)30 MG TAB PO SCH (09:51)
[2016-11-16] MEDS: DOCUSATE SODIUM 100 MG CAP PO SCH ×2 (09:52→21:13)
[2016-11-16] MEDS: RANOLAZINE (SR) 500 MG TAB PO SCH ×2 (09:52→21:13)
[2016-11-16] MEDS: FENOFIBRATE 145 MG TAB PO SCH (09:52)
[2016-11-16] MEDS: POLYETHYLENE GLYCOL 17 GM PACKET PO SCH ×2 (09:53→21:12)
[2016-11-16] MEDS ORDERED: FUROSEMIDE 40 MG INJ IV ONE (11:00)
--- NOTE | 2016-11-16 11:04 | CONS ---
Date/Time of Note Date/Time of Note DATE: 11/16/16 TIME: 11:01 Assessment/Plan Assessment/Plan Chief Complaint/Hosp Course Acute on chronic combined systolic/diastolic heart failure - EF 35%. In my opinion, she is still in heart failure based on significantly elevated JVP ( partially may be from TR). CXR also looks worse. Ischemic cardiomyopathy, LVEF 35-40% Coronary artery disease - history of myocardial infarction with coronary rupture and subsequent CABG Acute kidney injury on chronic kidney disease: now stable ~3.2 but worse than admission Accelerated hypertension - blood pressures now improved Mild aortic stenosis Dyslipidemia Chronic atrial fibrillation: controlled rates. INR now elevated -lasix 40mg IV now -if pt is to be discharged would suggest d/c home metolazone and instead use bumex 1mg PO daily(preferably in setting of significant TR) vs lasix 40mg PO daily -continue carvedilol 6.25mg BID, hydralazine 25mg TID, Imdur 30mg daily -continue ranolazine 500mg BID -continue atorvastatin 40mg daily - ? need for Zetia and Tricor (will defer to outpatient load mixer, Dr. Segovia) -continue warfarin with goal INR 2-3 (hold today as INR elevated) Problems: Consultation Date/Type/Reason Admit Date/Time Nov 08, 2016 at 23:12 Initial Consult Date 11/10/16 Type of Consultation: Cardiology Referring Provider: LAURA DENT MD 24 HR Interval Summary Free Text/Dictation Ambulated yesterday. Still with SOB. Exam/Review of Systems Vital Signs Vitals Vital Signs Date Time Temp Pulse Resp B/P Pulse Ox O2 Delivery O2 Flow Rate FiO2 11/16/16 08:00 59 11/16/16 07:28 98.6 19 153/76 99 11/15/16 19:00 Nasal Cannula 2.0 11/14/16 22:00 21 Intake and Output 11/15/16 11/15/16 11/16/16 15:00 23:00 07:00 Intake Total 1380 ml 550 ml Output Total 350 ml 650 ml Balance 1030 ml -100 ml Exam Constitutional: alert, oriented Head: atraumatic, normocephalic Neck: jvd (10cm) Respiratory: crackles/rales, diminished breath sounds Gastrointestinal: non-tender, soft Neurological: nl mental status, nl speech Results Result Diagram: 11/15/1645 11/15/1645 Results 24 hrs Laboratory Tests Test 11/16/16 06:00 Prothrombin Time 43.6 H Prothrombin Time Ratio 3.4 INR International Normalized Ratio 4.51 Medications Medications Current Medications Atorvastatin Calcium (Lipitor) 40 mg QHS PO Last administered on 11/15/16 20:10 ; Admin Dose 40 MG; Start 11/09/16 at 21:00 EZETIMIBE (Zetia) 10 mg DAILY PO Last administered on 11/16/16 09:50; Admin Dose 10 MG; Start 11/09/16 at 09:00 Fenofibrate (Tricor) 145 mg DAILY PO Last administered on 11/16/16 09:52; Admin Dose 145 MG; Start 11/09/16 at 09:00 Ranolazine (Ranexa) 500 mg Q12 PO Last administered on 11/16/16 09:52; Admin Dose 500 MG; Start 11/09/16 at 01:00 Pantoprazole (Protonix Tab) 40 mg DAILY@06 PO Last administered on 11/16/16 05: 04; Admin Dose 40 MG; Start 11/09/16 at 06:00 Warfarin Sodium (Coumadin) 4 mg DAILY@17 PO Last administered on 11/14/16 17:34 ; Admin Dose 4 MG; Start 11/09/16 at 17:00; Status Future Hold Carvedilol (Coreg) 6.25 mg BID PO Last administered on 11/16/16 09:52; Admin Dose 6.25 MG; Start 11/09/16 at 21:00 Isosorbide Mononitrate (Imdur) 30 mg DAILY PO Last administered on 11/16/16 09: 51; Admin Dose 30 MG; Start 11/10/16 at 09:00 Hydralazine HCl (Apresoline) 10 mg Q4H PRN IV SBP>160; Start 11/09/16 at 17:30 Hydralazine HCl (Apresoline) 25 mg TID PO Last administered on 11/16/16 09:52; Admin Dose 25 MG; Start 11/10/16 at 21:00 Docusate Sodium (Colace) 100 mg BID PO Last administered on 11/16/16 09:52; Admin Dose 100 MG; Start 11/12/16 at 21:00 Polyethylene Glycol (Miralax) 17 gm BID PO Last administered on 11/16/16 09:53 ; Admin Dose 17 GM; Start 11/12/16 at 16:00 Bisacodyl (Dulcolax Supp) 10 mg DAILY [place] Last administered on 11/13/16 14:07; Admin Dose 10 MG; Start 11/13/16 at 10:00 ADEN GRAVES Nov 16, 2016 11:04
[2016-11-16 12:48] LABS: ADD SCAN DIFF NO
[2016-11-16 12:53] LABS: BASOPHILS % 0.3 % (0.0-2.0); EOSINOPHILS # 0.1 10^3/ul (0.0-0.5); EOSINOPHILS % 2.3 % (0.0-7.0); HEMATOCRIT 29.4 % (37.0-47.0); HEMOGLOBIN 9.2 g/dl (12.0-16.0); LYMPHOCYTES # 0.6 10^3/ul (0.8-2.9); LYMPHOCYTES % 17.9 % (15.0-51.0); MEAN CORPUSCULAR HEMOGLOBIN 30.6 pg (29.0-33.0); MEAN CORPUSCULAR HGB CONC 31.3 g/dl (32.0-37.0); MEAN CORPUSCULAR VOLUME 97.7 fl (82.0-101.0); MEAN PLATELET VOLUME 12.2 fl (7.4-10.4); MONOCYTE # 0.3 10^3/ul (0.3-0.9); MONOCYTES % 7.6 % (0.0-11.0); NEUTROPHIL # 2.5 10^3/ul (1.6-7.5); NEUTROPHILS % 71.9 % (39.0-77.0); PLATELET COUNT 106 10^3/UL (140-415); RED BLOOD COUNT 3.01 10^6/ul (4.20-5.40); RED CELL DISTRIBUTION WIDTH 13.9 % (11.5-14.5); WHITE BLOOD COUNT 3.4 10^3/ul (4.8-10.8)
[2016-11-16 13:07] LABS: CALCIUM 8.7 mg/dl (8.4-10.2); CREATININE 3.06 mg/dl (0.44-1.00); POTASSIUM 4.9 mmol/L (3.5-5.1)
--- NOTE | 2016-11-16 15:52 | PN ---
Date/Time of Note Date/Time of Note DATE: 11/16/16 TIME: 15:46 Assessment/Plan VTE Prophylaxis VTE Prophylaxis Intervention: ambulation, anti-embolic stocking VTE Contraindication Reason: peripheral vascular disease Lines/Catheters IV Catheter Type (from Nrsg): [place] [employer] line still needed: No Urinary Cath still in place: Yes Reason Cath still needed: urinary retention Assessment/Plan Assessment/Plan 1. systolic and diastolic hear failure worsened after improvement. 2. History of coronary artery disease with coronary artery bypass grafting. 3. History of cardiac arrest, status post ruptured left anterior descending. 4. History of cardiac tamponade. 5. Hypertension-resistant with episodes of crisis . 6. Hyperlipidemia. 7. Atrial fibrillation-persists, rate controlled. 8. Chest pain, need to rule out acute coronary syndrome 9. Anemia of chronic disease-further decrease of hct and iron. 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 16.VDV and Hx of PE 17.Hx of having hemoptysis 18.Anxiety, depression with memory impairment 19.Diabetes mellitus type 2 20.CKD stage 3 with worsening after diuresis with atn-improving after iv fluids.creat=3 improving. 21.PMS 22.Constipation-getting worse. 23.Dizziness and ear noises 24.GARY 25.Severe muscular weakness 26.pleural effusion 27.Pulmonary effusion Cont'd Hospitalization Reason: hyponatremia, anemia, chf. Subjective 24 Hr Interval Summary Free Text/Dictation I am tired. I have mild swelling of legs. Constitutional: poor po, requiring O2, No chills, No diaphoresis, No disoriented, No febrile, No improved, No no complaints, No other, No requiring IVF Eyes: No discharge, No no complaints, No other, No pain, No redness, No visual change Respiratory: cough, shortness of breath, No no complaints, No other, No pain, No pleuritic pain, No sputum, No wheezing Cardiovascular: chest pain, edema, lightheadedness, orthopenea, palpitations, No no complaints, No other, No paroxysmal nocturnal dyspnea Gastrointestinal: constipation, flatus, passing stool, No blood, No decreased appetite, No diarrhea, No nausea, No no complaints, No other, No pain, No vomiting Musculoskeletal: back pain, neck pain, No bone/joint pain, No no complaints, No other, No restricted range of motion , No swelling Neurologic: dizziness, headache Exam/Review of Systems Vital Signs Vitals Vital Signs Date Time Temp Pulse Resp B/P Pulse Ox O2 Delivery O2 Flow Rate FiO2 11/16/16 15:24 98.6 55 19 122/76 92 11/16/16 08:00 Nasal Cannula 2.0 11/14/16 22:00 21 Intake and Output 11/15/16 11/15/16 11/16/16 15:00 23:00 07:00 Intake Total 1380 ml 550 ml Output Total 350 ml 650 ml Balance 1030 ml -100 ml Exam Constitutional: alert, obese, oriented, well developed, No distress, No frail, No non-verbal, No other Psych: anxiety, No confusion, No depression, No nl mood/affect, No no complaints, No other, No suicidal Head: atraumatic, normocephalic, No hematomas, No lacerations, No other Eyes: EOMI, PERRL, nl lids, No fundi, disc, No icteric, No nl conjunctiva, No nl sclera, No other ENMT: No intubated, No mucosa pink and moist, No nl external ears & nose, No nl lips & teeth, No nl nasal mucosa & septum, No other, No tympanic membranes Neck: bruits, jvd, nuchal rigidity, No masses, No non-tender, No other, No supple, No thyromegaly Respiratory: clear to auscultation (basilar rales.), congested cough, diminished breath sounds, No crackles/rales, No intercostal retraction, No labored breathing, No normal air movement, No other, No respirations, No tactile fremitus, No wheezing Cardiovascular: No S3, No S4, No bruits, No diastolic murmur, No edema, No gallop, No irregular rhythm, No jugular venous distention (JVD), No murmurs/ extra sounds, No nl pulses, No other, No regular rate and rhythm, No rub, No systolic murmur Gastrointestinal: distended, non-tender, soft Musculoskeletal: joint tenderness, muscle tone, muscle weakness Neurological: BAIL ATTACHER II-XII intact Skin: ecchymosis, No diaphoresis, No laceration, No nl turgor, No other, No puncture, No rash or lesions Results Result Diagram: 11/16/16 1145 11/16/16 1145 Results 24 hrs Laboratory Tests Test 11/16/16 06:00 11/16/16 11:45 Prothrombin Time 43.6 H Prothrombin Time Ratio 3.4 INR International Normalized Ratio 4.51 White Blood Count 3.4 L Red Blood Count 3.01 L Hemoglobin 9.2 L Hematocrit 29.4 L Mean Corpuscular Volume 97.7 Mean Corpuscular Hemoglobin 30.6 Mean Corpuscular Hemoglobin Concent 31.3 L Red Cell Distribution Width 13.9 Platelet Count 106 L Mean Platelet Volume 12.2 H Neutrophils % 71.9 Lymphocytes % 17.9 Monocytes % 7.6 Eosinophils % 2.3 Basophils % 0.3 Nucleated Red Blood Cells % 0.0 Neutrophils # 2.5 Lymphocytes # 0.6 L Monocytes # 0.3 Eosinophils # 0.1 Basophils # 0.0 Nucleated Red Blood Cells # 0.0 Sodium Level 133 L Potassium Level 4.9 Chloride Level 100 Carbon Dioxide Level 29 Anion Gap 9 # Blood Urea Nitrogen 64 H Creatinine 3.06 H Glucose Level 128 Calcium Level 8.7 Medications Medications Current Medications Atorvastatin Calcium (Lipitor) 40 mg QHS PO Last administered on 11/15/16 20:10 ; Admin Dose 40 MG; Start 11/09/16 at 21:00 EZETIMIBE (Zetia) 10 mg DAILY PO Last administered on 11/16/16 09:50; Admin Dose 10 MG; Start 11/09/16 at 09:00 Fenofibrate (Tricor) 145 mg DAILY PO Last administered on 11/16/16 09:52; Admin Dose 145 MG; Start 11/09/16 at 09:00 Ranolazine (Ranexa) 500 mg Q12 PO Last administered on 11/16/16 09:52; Admin Dose 500 MG; Start 11/09/16 at 01:00 Pantoprazole (Protonix Tab) 40 mg DAILY@06 PO Last administered on 11/16/16 05: 04; Admin Dose 40 MG; Start 11/09/16 at 06:00 Warfarin Sodium (Coumadin) 4 mg DAILY@17 PO Last administered on 11/14/16 17:34 ; Admin Dose 4 MG; Start 11/09/16 at 17:00; Status Future Hold Carvedilol (Coreg) 6.25 mg BID PO Last administered on 11/16/16 09:52; Admin Dose 6.25 MG; Start 11/09/16 at 21:00 Isosorbide Mononitrate (Imdur) 30 mg DAILY PO Last administered on 11/16/16 09: 51; Admin Dose 30 MG; Start 11/10/16 at 09:00 Hydralazine HCl (Apresoline) 10 mg Q4H PRN IV SBP>160; Start 11/09/16 at 17:30 Hydralazine HCl (Apresoline) 25 mg TID PO Last administered on 11/16/16 12:42; Admin Dose 25 MG; Start 11/10/16 at 21:00 Docusate Sodium (Colace) 100 mg BID PO Last administered on 11/16/16 09:52; Admin Dose 100 MG; Start 11/12/16 at 21:00 Polyethylene Glycol (Miralax) 17 gm BID PO Last administered on 11/16/16 09:53 ; Admin Dose 17 GM; Start 11/12/16 at 16:00 Bisacodyl (Dulcolax Supp) 10 mg DAILY IN Last administered on 11/13/16 14:07; Admin Dose 10 MG; Start 11/13/16 at 10:00 LAURA DENT MD Nov 16, 2016 15:52
[2016-11-16] MEDS: SOD FERRIC GLUC COMPLX 125 MG in SOD CHLORIDE 0.9% 100 ML IVPB SCH (17:25)
[2016-11-16] MEDS: ATORVASTATIN 40 MG TAB PO SCH (21:13)
[2016-11-16] MEDS ORDERED: VITAMIN A & D 5 GM OINT PACKET TOP ONE (21:19)
--- NOTE | 2016-11-16 21:38 | CONS ---
Date/Time of Note Date/Time of Note DATE: 11/16/16 TIME: 21:37 Assessment/Plan Assessment/Plan Chief Complaint/Hosp Course PANCYTOPENIA WITH LEUKOPENIA SINCE 02.21 ANEMIA, CHRONIC , COMPLETE W-UP THROMBOCYTOPENIA- FROM 2014 MONITOR BLOOD COUNT CLOSELY OBSERVE FOR BLEEDING AND HEMOLYSIS ABD US- N CONSIDER BMBX Bilateral pleural effusions. Acute on chronic combined systolic/diastolic heart failure - improved with diuresis Ischemic cardiomyopathy, LVEF 35-40% Coronary artery disease - history of myocardial infarction with coronary rupture and subsequent CABG Accelerated hypertension - blood pressures now improved and with hypotension Mild aortic stenosis Dyslipidemia Chronic atrial fibrillation Acute kidney injury on chronic kidney disease Problems: Consultation Date/Type/Reason Admit Date/Time Nov 08, 2016 at 23:12 Type of Consultation: HEMEON Referring Provider: LAURA DENT MD 24 HR Interval Summary Free Text/Dictation ALL NOTED COUNT STABLE Exam/Review of Systems Vital Signs Vitals Vital Signs Date Time Temp Pulse Resp B/P Pulse Ox O2 Delivery O2 Flow Rate FiO2 11/16/16 20:01 50 11/16/16 19:41 Nasal Cannula 2.0 11/16/16 15:24 98.6 19 122/76 92 11/14/16 22:00 21 Intake and Output 11/15/16 11/15/16 11/16/16 15:00 23:00 07:00 Intake Total 1380 ml 550 ml Output Total 350 ml 650 ml Balance 1030 ml -100 ml Exam Constitutional: alert, well developed Psych: nl mood/affect, no complaints Head: atraumatic, normocephalic Eyes: nl conjunctiva, nl lids ENMT: nl external ears & nose, nl nasal mucosa & septum Neck: jvd, non-tender, supple Respiratory: crackles/rales, diminished breath sounds Cardiovascular: regular rate and rhythm, systolic murmur Gastrointestinal: non-tender, soft Extremities: edema, No clubbing, No cyanosis Neurological: nl mental status, nl speech Results Result Diagram: 11/16/16 1145 11/16/16 1145 Results 24 hrs Laboratory Tests Test 11/16/16 06:00 11/16/16 11:45 Prothrombin Time 43.6 H Prothrombin Time Ratio 3.4 INR International Normalized Ratio 4.51 White Blood Count 3.4 L Red Blood Count 3.01 L Hemoglobin 9.2 L Hematocrit 29.4 L Mean Corpuscular Volume 97.7 Mean Corpuscular Hemoglobin 30.6 Mean Corpuscular Hemoglobin Concent 31.3 L Red Cell Distribution Width 13.9 Platelet Count 106 L Mean Platelet Volume 12.2 H Neutrophils % 71.9 Lymphocytes % 17.9 Monocytes % 7.6 Eosinophils % 2.3 Basophils % 0.3 Nucleated Red Blood Cells % 0.0 Neutrophils # 2.5 Lymphocytes # 0.6 L Monocytes # 0.3 Eosinophils # 0.1 Basophils # 0.0 Nucleated Red Blood Cells # 0.0 Sodium Level 133 L Potassium Level 4.9 Chloride Level 100 Carbon Dioxide Level 29 Anion Gap 9 # Blood Urea Nitrogen 64 H Creatinine 3.06 H Glucose Level 128 Calcium Level 8.7 Medications Medications Current Medications Atorvastatin Calcium (Lipitor) 40 mg QHS PO Last administered on 11/16/16 21:13 ; Admin Dose 40 MG; Start 11/09/16 at 21:00 EZETIMIBE (Zetia) 10 mg DAILY PO Last administered on 11/16/16 09:50; Admin Dose 10 MG; Start 11/09/16 at 09:00 Fenofibrate (Tricor) 145 mg DAILY PO Last administered on 11/16/16 09:52; Admin Dose 145 MG; Start 11/09/16 at 09:00 Ranolazine (Ranexa) 500 mg Q12 PO Last administered on 11/16/16 21:13; Admin Dose 500 MG; Start 11/09/16 at 01:00 Pantoprazole (Protonix Tab) 40 mg DAILY@06 PO Last administered on 11/16/16 05: 04; Admin Dose 40 MG; Start 11/09/16 at 06:00 Warfarin Sodium (Coumadin) 4 mg DAILY@17 PO Last administered on 11/14/16 17:34 ; Admin Dose 4 MG; Start 11/09/16 at 17:00; Status Future Hold Carvedilol (Coreg) 6.25 mg BID PO Last administered on 11/16/16 09:52; Admin Dose 6.25 MG; Start 11/09/16 at 21:00 Isosorbide Mononitrate (Imdur) 30 mg DAILY PO Last administered on 11/16/16 09: 51; Admin Dose 30 MG; Start 11/10/16 at 09:00 Hydralazine HCl (Apresoline) 10 mg Q4H PRN IV SBP>160; Start 11/09/16 at 17:30 Hydralazine HCl (Apresoline) 25 mg TID PO Last administered on 11/16/16 21:13; Admin Dose 25 MG; Start 11/10/16 at 21:00 Docusate Sodium (Colace) 100 mg BID PO Last administered on 11/16/16 21:13; Admin Dose 100 MG; Start 11/12/16 at 21:00 Polyethylene Glycol (Miralax) 17 gm BID PO Last administered on 11/16/16 21:12 ; Admin Dose 17 GM; Start 11/12/16 at 16:00 Bisacodyl 10 mg 10 mg DAILY [place] Last administered on 11/13/16 14:07; Admin Dose 10 MG; Start 11/13/16 at 10:00 Ferric Sodium Gluconate Complex/ Sodium Chloride (Ferrlecit/NS) 110 ml @ 100 mls/hr Q24H IVPB Last administered on 11/16/16 17:25; Admin Dose 100 MLS/HR; Start 11/16/16 at 17:00; Stop 11/18/16 at 18:05 MANDIE MALAVE MD Nov 16, 2016 21:38
[2016-11-17] VITALS (12 sets, daily range): BP systolic 137–170; BP diastolic 69–90; PULSE 59–78; RESP 16–20
[2016-11-17] MEDS: PANTOPRAZOLE (EC) 40 MG TAB PO SCH (05:43)
--- NOTE | 2016-11-17 07:22 | PN ---
Date/Time of Note Date/Time of Note DATE: 11/17/16 TIME: 07:21 Assessment/Plan VTE Prophylaxis VTE Prophylaxis Intervention: ambulation, anti-embolic stocking VTE Contraindication Reason: peripheral vascular disease Lines/Catheters IV Catheter Type (from Nrsg): [place] [employer] [place] line still needed: No Urinary Cath still in place: Yes Reason Cath still needed: urinary retention Assessment/Plan Assessment/Plan 1. Herpes zoster left gluteal area with prominent cellulitis. 2. History of coronary artery disease with coronary artery bypass grafting. 3. History of cardiac arrest, status post ruptured left anterior descending. 4. History of cardiac tamponade. 5. Hypertension-resistant with episodes of crisis . 6. Hyperlipidemia. 7. Atrial fibrillation-persists, rate controlled. 8. Chest pain, need to rule out acute coronary syndrome 9. Anemia of chronic disease-further decrease of hct and iron. 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 16.VDV and Hx of PE 17.Hx of having hemoptysis 18.Anxiety, depression with memory impairment 19.Diabetes mellitus type 2 20.CKD stage 3 with worsening after diuresis with atn-improving after iv fluids.creat=3 improving. 21.PMS 22.Constipation-getting worse. 23.Dizziness and ear noises 24.GARY 25.Severe muscular weakness 26.pleural effusion 27.Pulmonary effusion 28.systolic and diastolic hear failure worsened after improvement. Cont'd Hospitalization Reason: hyponatremia, anemia, chf. Cont'd Hospitalization Reason: zoster, anemia. acute on chronic renal failure. Refused bone marrow biop Subjective 24 Hr Interval Summary Free Text/Dictation Pain in the back. I was having similar pain in the past too, when there was a d/c from the wounds. Today I have more burning sensation. That part of my body doesn't like syntectics. It got worse when the nurse put a dressing and some cream. I was feeling shy to tell you about that.SOB.I am tired. I can't walk one [place] on the floor. Constitutional: chills, poor po, requiring O2, No diaphoresis, No disoriented, No febrile, No improved, No no complaints, No other, No requiring IVF Eyes: No discharge, No no complaints, No other, No pain, No redness, No visual change ENT: No bleeding, No congestion, No discharge, No dysphagia, No no complaints, No other, No pain, No sore throat Respiratory: No cough, No no complaints, No other, No pain, No pleuritic pain, No shortness of breath, No sputum, No wheezing Cardiovascular: lightheadedness, orthopenea, palpitations, No chest pain, No edema, No no complaints, No other, No paroxysmal nocturnal dyspnea Gastrointestinal: constipation, decreased appetite, flatus, nausea Musculoskeletal: back pain, bone/joint pain, neck pain, No no complaints, No other, No restricted range of motion, No swelling Skin: bruising, erythema, pruritis, rash (over the left gluteal area with 7 big and couple of small red round zones exclusively onthe left gluteal area with incresasd sensation to touch.) Neurologic: dizziness, headache, No confusion, No focal-weakness, No no complaints, No other, No seizure, No syncope Endocrine: temp intolerance, No dry skin, No no complaints, No other, No polydypsia, No polyuria Exam/Review of Systems Vital Signs Vitals Vital Signs Date Time Temp Pulse Resp B/P Pulse Ox O2 Delivery O2 Flow Rate FiO2 11/17/16 04:01 70 11/17/16 03:48 98.0 20 170/77 92 11/16/16 19:41 Nasal Cannula 2.0 11/14/16 22:00 21 Intake and Output 11/16/16 11/16/16 11/17/16 15:00 23:00 07:00 Intake Total 1310 ml 700 ml Output Total 2000 ml 1200 ml Balance -690 ml -500 ml Exam Constitutional: alert, distress, frail, oriented, No non-verbal, No obese, No other, No well developed Psych: anxiety, depression, No confusion, No nl mood/affect, No no complaints, No other, No suicidal Head: normocephalic Eyes: EOMI, PERRL, nl lids, No fundi, disc, No icteric, No nl conjunctiva, No nl sclera, No other ENMT: nl external ears & nose, nl lips & teeth, nl nasal mucosa & septum, No intubated, No mucosa pink and moist, No other, No tympanic membranes Neck: bruits, supple Respiratory: congested cough, diminished breath sounds, labored breathing, other (no rales.), No clear to auscultation, No crackles/rales, No intercostal retraction, No normal air movement, No respirations, No tactile fremitus, No wheezing Cardiovascular: bruits, diastolic murmur, nl pulses, No S3, No S4, No edema, No gallop, No irregular rhythm, No jugular venous distention (JVD), No murmurs/extra sounds, No other, No regular rate and rhythm , No rub, No systolic murmur Gastrointestinal: bowel sounds, distended, nl liver, spleen, soft, No ascites, No firm, No hepatomegaly, No mass, No non-tender, No other, No rebound or guarding, No splenomegaly, No surgical scars, No tender Musculoskeletal: joint tenderness, muscle tone, muscle weakness, range of motion Extremities: calf tenderness (Change of the color of the lower thired ofthe right tibial area.), No clubbing, No cyanosis, No edema, No normal pulses, No other, No palpable cord, No pitting pedal edema, No tenderness Neurological: SPIR[employer] [place] [employer] II-XII intact, confused, nl speech, numbness, other (feels shy.) Results Result Diagram: 11/16/16 1145 11/16/16 1145 Results 24 hrs Laboratory Tests Test 11/16/16 11:45 White Blood Count 3.4 L Red Blood Count 3.01 L Hemoglobin 9.2 L Hematocrit 29.4 L Mean Corpuscular Volume 97.7 Mean Corpuscular Hemoglobin 30.6 Mean Corpuscular Hemoglobin Concent 31.3 L Red Cell Distribution Width 13.9 Platelet Count 106 L Mean Platelet Volume 12.2 H Neutrophils % 71.9 Lymphocytes % 17.9 Monocytes % 7.6 Eosinophils % 2.3 Basophils % 0.3 Nucleated Red Blood Cells % 0.0 Neutrophils # 2.5 Lymphocytes # 0.6 L Monocytes # 0.3 Eosinophils # 0.1 Basophils # 0.0 Nucleated Red Blood Cells # 0.0 Sodium Level 133 L Potassium Level 4.9 Chloride Level 100 Carbon Dioxide Level 29 Anion Gap 9 # Blood Urea Nitrogen 64 H Creatinine 3.06 H Glucose Level 128 Calcium Level 8.7 Medications Medications Current Medications Atorvastatin Calcium (Lipitor) 40 mg QHS PO Last administered on 4/9/17at 21:13 ; Admin Dose 40 MG; Start 11/09/16 at 21:00 EZETIMIBE (Zetia) 10 mg DAILY PO Last administered on 11/16/16 09:50; Admin Dose 10 MG; Start 11/09/16 at 09:00 Fenofibrate (Tricor) 145 mg DAILY PO Last administered on 11/16/16 09:52; Admin Dose 145 MG; Start 11/09/16 at 09:00 Ranolazine (Ranexa) 500 mg Q12 PO Last administered on 11/16/16 21:13; Admin Dose 500 MG; Start 11/09/16 at 01:00 Pantoprazole (Protonix Tab) 40 mg DAILY@06 PO Last administered on 11/17/16 05 :43; Admin Dose 40 MG; Start 11/09/16 at 06:00 Warfarin Sodium (Coumadin) 4 mg DAILY@17 PO Last administered on 11/14/16 17:34 ; Admin Dose 4 MG; Start 11/09/16 at 17:00; Status Future Hold Carvedilol (Coreg) 6.25 mg BID PO Last administered on 11/16/16 09:52; Admin Dose 6.25 MG; Start 11/09/16 at 21:00 Isosorbide Mononitrate (Imdur) 30 mg DAILY PO Last administered on 11/16/16 09: 51; Admin Dose 30 MG; Start 11/10/16 at 09:00 Hydralazine HCl (Apresoline) 10 mg Q4H PRN IV SBP>160 Last administered on 11/17 03:29; Admin Dose 10 MG; Start 11/09/16 at 17:30 Hydralazine HCl (Apresoline) 25 mg TID PO Last administered on 11/16/16 21:13; Admin Dose 25 MG; Start 11/10/16 at 21:00 Docusate Sodium (Colace) 100 mg BID PO Last administered on 11/16/16 21:13; Admin Dose 100 MG; Start 11/12/16 at 21:00 Polyethylene Glycol (Miralax) 17 gm BID PO Last administered on 11/16/16 21:12 ; Admin Dose 17 GM; Start 11/12/16 at 16:00 Bisacodyl 10 mg 10 mg DAILY [place] Last administered on 11/13/16 14:07; Admin Dose 10 MG; Start 11/13/16 at 10:00 Ferric Sodium Gluconate Complex/ Sodium Chloride (Ferrlecit/NS) 110 ml @ 100 mls/hr Q24H IVPB Last administered on 11/16/16 17:25; Admin Dose 100 MLS/HR; Start 11/16/16 at 17:00; Stop 11/18/16 at 18:05 LAURA DENT MD Nov 17, 2016 07:22
[2016-11-17 07:38] LABS: INR 3.43; PROTIME 35.1 Sec (12.2-14.2); PT RATIO 2.7
[2016-11-17] MEDS: RANOLAZINE (SR) 500 MG TAB PO SCH ×2 (09:00→21:13)
[2016-11-17] MEDS: DOCUSATE SODIUM 100 MG CAP PO SCH ×2 (09:00→21:10)
[2016-11-17] MEDS: EZETIMIBE 10 MG TAB PO SCH (09:00)
[2016-11-17] MEDS: POLYETHYLENE GLYCOL 17 GM PACKET PO SCH ×2 (09:00→21:12)
[2016-11-17] MEDS: FENOFIBRATE 145 MG TAB PO SCH (09:00)
[2016-11-17] MEDS: BISACODYL 10 MG SUPP PR SCH (09:00)
[2016-11-17] MEDS: ISOSORBIDE MONONITRATE(SR)30 MG TAB PO SCH (09:03)
[2016-11-17 10:47] LABS: ADD SCAN DIFF NO
[2016-11-17 10:50] LABS: BASOPHILS % 0.3 % (0.0-2.0); EOSINOPHILS # 0.1 10^3/ul (0.0-0.5); EOSINOPHILS % 1.6 % (0.0-7.0); HEMATOCRIT 29.5 % (37.0-47.0); HEMOGLOBIN 9.5 g/dl (12.0-16.0); LYMPHOCYTES # 0.7 10^3/ul (0.8-2.9); LYMPHOCYTES % 22.7 % (15.0-51.0); MEAN CORPUSCULAR HEMOGLOBIN 30.9 pg (29.0-33.0); MEAN CORPUSCULAR HGB CONC 32.2 g/dl (32.0-37.0); MEAN CORPUSCULAR VOLUME 96.1 fl (82.0-101.0); MEAN PLATELET VOLUME 11.4 fl (7.4-10.4); MONOCYTE # 0.2 10^3/ul (0.3-0.9); MONOCYTES % 6.4 % (0.0-11.0); NEUTROPHIL # 2.2 10^3/ul (1.6-7.5); NEUTROPHILS % 68.7 % (39.0-77.0); PLATELET COUNT 115 10^3/UL (140-415); RED BLOOD COUNT 3.07 10^6/ul (4.20-5.40); RED CELL DISTRIBUTION WIDTH 13.9 % (11.5-14.5); WHITE BLOOD COUNT 3.1 10^3/ul (4.8-10.8)
[2016-11-17 11:02] LABS: CALCIUM 8.9 mg/dl (8.4-10.2); CREATININE 3.15 mg/dl (0.44-1.00); POTASSIUM 4.6 mmol/L (3.5-5.1)
[2016-11-17] MEDS: SOD FERRIC GLUC COMPLX 125 MG in SOD CHLORIDE 0.9% 100 ML IVPB SCH (11:25)
--- NOTE | 2016-11-17 14:22 | CONS ---
Date/Time of Note Date/Time of Note DATE: 11/17/16 TIME: 14:19 Assessment/Plan Assessment/Plan Chief Complaint/Hosp Course Acute on chronic combined systolic/diastolic heart failure - EF 35%. In my opinion, she is still in heart failure based on significantly elevated JVP ( partially may be from TR). CXR also looks worse. Improving slowly (diuresed well yesterday) Ischemic cardiomyopathy, LVEF 35-40% Coronary artery disease - history of myocardial infarction with coronary rupture and subsequent CABG Acute kidney injury on chronic kidney disease: now stable ~3.2 but worse than admission Accelerated hypertension - blood pressures high again. Mild aortic stenosis Dyslipidemia Chronic atrial fibrillation: controlled rates. INR now elevated -bumex 1mg PO daily (equivalent to lasix 40mg but better bioavailability) -continue carvedilol 6.25mg BID (parameters changed) -increase to hydralazine 50 mg TID -Imdur 30mg daily -continue ranolazine 500mg BID -continue atorvastatin 40mg daily - ? need for Zetia and Tricor (will defer to outpatient relish blender, Dr. Segovia) -continue warfarin with goal INR 2-3 (hold today as INR elevated) Problems: Consultation Date/Type/Reason Admit Date/Time Nov 08, 2016 at 23:12 Initial Consult Date 11/10/16 Type of Consultation: Cardiology Referring Provider: LAURA DENT MD 24 HR Interval Summary Free Text/Dictation SBP elevated o/n. Coreg held twice due to HR 50s. Still with exertional dyspnea. Not agreeable to further IV diuretics but ok with PO Exam/Review of Systems Vital Signs Vitals Vital Signs Date Time Temp Pulse Resp B/P Pulse Ox O2 Delivery O2 Flow Rate FiO2 11/17/16 12:27 59 11/17/16 11:43 98.2 18 156/77 96 11/17/16 08:00 Nasal Cannula 2.0 11/14/16 22:00 21 Intake and Output 11/16/16 11/16/16 11/17/16 15:00 23:00 07:00 Intake Total 1310 ml 700 ml Output Total 2000 ml 1200 ml Balance -690 ml -500 ml Exam Constitutional: alert, oriented Psych: no complaints Head: atraumatic, normocephalic Neck: jvd (9cm) Respiratory: crackles/rales, diminished breath sounds, No clear to auscultation Cardiovascular: edema (1+), No regular rate and rhythm (IRIR) Gastrointestinal: non-tender, soft Neurological: nl mental status, nl speech Results Result Diagram: 11/17/16 1027 11/17/16 1027 Results 24 hrs Laboratory Tests Test 11/17/16 06:30 11/17/16 10:27 Prothrombin Time 35.1 H Prothrombin Time Ratio 2.7 INR International Normalized Ratio 3.43 White Blood Count 3.1 L Red Blood Count 3.07 L Hemoglobin 9.5 L Hematocrit 29.5 L Mean Corpuscular Volume 96.1 Mean Corpuscular Hemoglobin 30.9 Mean Corpuscular Hemoglobin Concent 32.2 Red Cell Distribution Width 13.9 Platelet Count 115 L Mean Platelet Volume 11.4 H Neutrophils % 68.7 Lymphocytes % 22.7 Monocytes % 6.4 Eosinophils % 1.6 Basophils % 0.3 Nucleated Red Blood Cells % 0.0 Neutrophils # 2.2 Lymphocytes # 0.7 L Monocytes # 0.2 L Eosinophils # 0.1 Basophils # 0.0 Nucleated Red Blood Cells # 0.0 Sodium Level 134 L Potassium Level 4.6 Chloride Level 98 Carbon Dioxide Level 29 Anion Gap 12 Blood Urea Nitrogen 64 H Creatinine 3.15 H Glucose Level 122 Calcium Level 8.9 Medications Medications Current Medications Atorvastatin Calcium (Lipitor) 40 mg QHS PO Last administered on 11/16/16 21:13 ; Admin Dose 40 MG; Start 11/09/16 at 21:00 EZETIMIBE (Zetia) 10 mg DAILY PO Last administered on 11/17/16 09:00; Admin Dose 10 MG; Start 11/09/16 at 09:00 Fenofibrate (Tricor) 145 mg DAILY PO Last administered on 11/17/16 09:00; Admin Dose 145 MG; Start 11/09/16 at 09:00 Ranolazine (Ranexa) 500 mg Q12 PO Last administered on 11/17/16 09:00; Admin Dose 500 MG; Start 11/09/16 at 01:00 Pantoprazole (Protonix Tab) 40 mg DAILY@06 PO Last administered on 11/17/16 05 :43; Admin Dose 40 MG; Start 11/09/16 at 06:00 Warfarin Sodium (Coumadin) 4 mg DAILY@17 PO Last administered on 11/14/16 17:34 ; Admin Dose 4 MG; Start 11/09/16 at 17:00; Status Future Hold Carvedilol (Coreg) 6.25 mg BID PO Last administered on 11/16/16 09:52; Admin Dose 6.25 MG; Start 11/09/16 at 21:00 Isosorbide Mononitrate (Imdur) 30 mg DAILY PO Last administered on 11/17/16 09 :03; Admin Dose 30 MG; Start 11/10/16 at 09:00 Hydralazine HCl (Apresoline) 10 mg Q4H PRN IV SBP>160 Last administered on 11/17 03:29; Admin Dose 10 MG; Start 11/09/16 at 17:30 Hydralazine HCl (Apresoline) 25 mg TID PO Last administered on 11/17/16 12:47 ; Admin Dose 25 MG; Start 11/10/16 at 21:00 Docusate Sodium (Colace) 100 mg BID PO Last administered on 11/17/16 09:00; Admin Dose 100 MG; Start 11/12/16 at 21:00 Polyethylene Glycol (Miralax) 17 gm BID PO Last administered on 11/16/16 21:12 ; Admin Dose 17 GM; Start 11/12/16 at 16:00 Bisacodyl 10 mg 10 mg DAILY [place] Last administered on 11/13/16 14:07; Admin Dose 10 MG; Start 11/13/16 at 10:00 Ferric Sodium Gluconate Complex/ Sodium Chloride (Ferrlecit/NS) 110 ml @ 100 mls/hr Q24H IVPB Last administered on 11/17/16 11:25; Admin Dose 100 MLS/HR; Start 11/16/16 at 17:00; Stop 11/18/16 at 18:05 ADEN GRAVES Nov 17, 2016 14:22
--- NOTE | 2016-11-17 16:46 | CONS ---
Date/Time of Note Date/Time of Note DATE: 11/17/16 TIME: 16:44 Assessment/Plan Assessment/Plan Chief Complaint/Hosp Course PANCYTOPENIA WITH LEUKOPENIA SINCE 02.21 ANEMIA, CHRONIC , WITH COMPONENT ACD THROMBOCYTOPENIA- FROM 2014 MONITOR BLOOD COUNT CLOSELY OBSERVE FOR BLEEDING AND HEMOLYSIS ABD US- N BMBX- D/W DR GARCIA, HE IS IN AGREEMENT Bilateral pleural effusions. Acute on chronic combined systolic/diastolic heart failure - improved with diuresis Ischemic cardiomyopathy, LVEF 35-40% Coronary artery disease - history of myocardial infarction with coronary rupture and subsequent CABG Accelerated hypertension - blood pressures now improved and with hypotension Mild aortic stenosis Dyslipidemia Chronic atrial fibrillation Acute kidney injury on chronic kidney disease Problems: Consultation Date/Type/Reason Admit Date/Time Nov 08, 2016 at 23:12 Type of Consultation: HEMEON Referring Provider: LAURA DENT MD 24 HR Interval Summary Free Text/Dictation ALL NOTED PANCYTOPENIA PERSIST NO BLEEDING Exam/Review of Systems Vital Signs Vitals Vital Signs Date Time Temp Pulse Resp B/P Pulse Ox O2 Delivery O2 Flow Rate FiO2 11/17/16 15:36 98.3 88 16 143/77 96 11/17/16 08:00 Nasal Cannula 2.0 11/14/16 22:00 21 Intake and Output 11/16/16 11/16/16 11/17/16 15:00 23:00 07:00 Intake Total 1310 ml 700 ml Output Total 2000 ml 1200 ml Balance -690 ml -500 ml Exam Constitutional: alert, oriented Psych: no complaints Head: atraumatic, normocephalic Neck: jvd (9cm) Respiratory: crackles/rales, diminished breath sounds, No clear to auscultation Cardiovascular: edema (1+), No regular rate and rhythm (IRIR) Gastrointestinal: non-tender, soft Neurological: nl mental status, nl speech Results Result Diagram: 11/17/16 1027 11/17/16 1027 Results 24 hrs Laboratory Tests Test 11/17/16 06:30 11/17/16 10:27 Prothrombin Time 35.1 H Prothrombin Time Ratio 2.7 INR International Normalized Ratio 3.43 White Blood Count 3.1 L Red Blood Count 3.07 L Hemoglobin 9.5 L Hematocrit 29.5 L Mean Corpuscular Volume 96.1 Mean Corpuscular Hemoglobin 30.9 Mean Corpuscular Hemoglobin Concent 32.2 Red Cell Distribution Width 13.9 Platelet Count 115 L Mean Platelet Volume 11.4 H Neutrophils % 68.7 Lymphocytes % 22.7 Monocytes % 6.4 Eosinophils % 1.6 Basophils % 0.3 Nucleated Red Blood Cells % 0.0 Neutrophils # 2.2 Lymphocytes # 0.7 L Monocytes # 0.2 L Eosinophils # 0.1 Basophils # 0.0 Nucleated Red Blood Cells # 0.0 Sodium Level 134 L Potassium Level 4.6 Chloride Level 98 Carbon Dioxide Level 29 Anion Gap 12 Blood Urea Nitrogen 64 H Creatinine 3.15 H Glucose Level 122 Calcium Level 8.9 Medications Medications Current Medications Atorvastatin Calcium (Lipitor) 40 mg QHS PO Last administered on 11/16/16 21:13 ; Admin Dose 40 MG; Start 11/09/16 at 21:00 EZETIMIBE (Zetia) 10 mg DAILY PO Last administered on 11/17/16 09:00; Admin Dose 10 MG; Start 11/09/16 at 09:00 Fenofibrate (Tricor) 145 mg DAILY PO Last administered on 11/17/16 09:00; Admin Dose 145 MG; Start 11/09/16 at 09:00 Ranolazine (Ranexa) 500 mg Q12 PO Last administered on 11/17/16 09:00; Admin Dose 500 MG; Start 11/09/16 at 01:00 Pantoprazole (Protonix Tab) 40 mg DAILY@06 PO Last administered on 11/17/16 05 :43; Admin Dose 40 MG; Start 11/09/16 at 06:00 Warfarin Sodium (Coumadin) 4 mg DAILY@17 PO Last administered on 11/14/16 17:34 ; Admin Dose 4 MG; Start 11/09/16 at 17:00; Status Future Hold Carvedilol (Coreg) 6.25 mg BID PO Last administered on 11/16/16 09:52; Admin Dose 6.25 MG; Start 11/09/16 at 21:00 Isosorbide Mononitrate (Imdur) 30 mg DAILY PO Last administered on 11/17/16 09 :03; Admin Dose 30 MG; Start 11/10/16 at 09:00 Hydralazine HCl (Apresoline) 10 mg Q4H PRN IV SBP>160 Last administered on 11/17 03:29; Admin Dose 10 MG; Start 11/09/16 at 17:30 Docusate Sodium (Colace) 100 mg BID PO Last administered on 11/17/16 09:00; Admin Dose 100 MG; Start 11/12/16 at 21:00 Polyethylene Glycol (Miralax) 17 gm BID PO Last administered on 11/16/16 21:12 ; Admin Dose 17 GM; Start 11/12/16 at 16:00 Bisacodyl 10 mg 10 mg DAILY [place] Last administered on 11/13/16 14:07; Admin Dose 10 MG; Start 11/13/16 at 10:00 Ferric Sodium Gluconate Complex/ Sodium Chloride (Ferrlecit/NS) 110 ml @ 100 mls/hr Q24H IVPB Last administered on 11/17/16 11:25; Admin Dose 100 MLS/HR; Start 11/16/16 at 17:00; Stop 11/18/16 at 18:05 Hydralazine HCl (Apresoline) 50 mg TID PO ; Start 11/17/16 at 21:00 Bumetanide (Bumex) 1 mg DAILY PO ; Start 11/17/16 at 14:30 Carvedilol (Coreg) 3.125 mg BID PRN PO if SBP between 101-135mm HG;; Start at 21:00 MANDIE MALAVE MD Nov 17, 2016 16:46
[2016-11-17] MEDS: BUMETANIDE 1 MG TAB PO SCH (17:52)
[2016-11-17] MEDS ORDERED: PREGABALIN 50 MG CAP PO SCH (20:30)
[2016-11-17] MEDS: ATORVASTATIN 40 MG TAB PO SCH (21:10)
[2016-11-17 21:51] LABS: ALBUMIN 3.5 g/dl (3.3-4.9); ALBUMIN/GLOBULIN RATIO 1.2; BILIRUBIN,INDIRECT 0.3 mg/dl (0-1.1); BILIRUBIN,TOTAL 0.3 mg/dl (0.2-1.3); CREATININE 3.13 mg/dl (0.44-1.00); POTASSIUM 4.7 mmol/L (3.5-5.1); TOTAL PROTEIN 6.4 g/dl (6.1-8.1)
[2016-11-17] MEDS: VALACYCLOVIR 500 MG TAB PO SCH (22:57)
[2016-11-18] VITALS (10 sets, daily range): BP systolic 129–137; BP diastolic 61–75; PULSE 58–75; RESP 16–20
[2016-11-18] MEDS: PANTOPRAZOLE (EC) 40 MG TAB PO SCH (05:31)
[2016-11-18 07:19] LABS: INR 2.81; PT RATIO 2.3
[2016-11-18] MEDS: BISACODYL 10 MG SUPP PR SCH (09:00)
[2016-11-18] MEDS: VALACYCLOVIR 500 MG TAB PO SCH (09:40)
[2016-11-18] MEDS: DOCUSATE SODIUM 100 MG CAP PO SCH (09:40)
[2016-11-18] MEDS: POLYETHYLENE GLYCOL 17 GM PACKET PO SCH (09:41)
[2016-11-18] MEDS: FENOFIBRATE 145 MG TAB PO SCH (09:41)
[2016-11-18] MEDS: BUMETANIDE 1 MG TAB PO SCH (09:41)
[2016-11-18] MEDS: RANOLAZINE (SR) 500 MG TAB PO SCH (09:42)
[2016-11-18] MEDS: EZETIMIBE 10 MG TAB PO SCH (09:43)
[2016-11-18] MEDS: ISOSORBIDE MONONITRATE(SR)30 MG TAB PO SCH (09:43)
--- NOTE | 2016-11-18 11:03 | CONS ---
DATE OF ADMISSION: 11/08/2016 DATE OF CONSULTATION: 11/18/2016 TYPE OF CONSULTATION: Nephrology. REASON FOR CONSULTATION: Acute kidney injury. PHYSICIAN REQUESTING CONSULT: Dr. Strange. HISTORY OF PRESENT ILLNESS: This is a 71-year-old female with a past medical history of chronic kid jose disease stage IV with a baseline creatinine around 2 mg/dL with a history of CHF, history of hyp ertension, coronary artery disease, dyslipidemia, chronic atrial fibrillation, who presents to [facility] with worsening shortness of breath, lower extremity edema. The patient upon arrival was noted to be in decompensated heart failure with elevated BNP and chest x-ray showed vas cular congestion. The patient was seen by a joint yarner and was placed on diuretic therapy. The p atient during her hospital course has diuresed over 8 liters. The patient, however, although clinic ally improving, continues to complain of weakness and general fatigue. In terms of the patient's renal history, the patient has a baseline creatinine around 2 mg/dL. Duri ng the mg/hospital course, her increased to 3.5 mg/dL. Over the last 48 hours, the patient's creati nine has stabilized around 3.0 mg/dL. During this time, the patient had no episodes of hemoptysis, hemetemesis, hematochezia. No rashes. PAST MEDICAL HISTORY: As stated above, history of CKD stage IV, history of hypertension, dyslipidem ia, chronic atrial fibrillation, heart failure. PAST SURGICAL HISTORY: Status post CABG. ALLERGIES: NO KNOWN DRUG ALLERGIES. FAMILY HISTORY: Noncontributory. SOCIAL HISTORY: Does not drink, smoke or do drugs. MEDICATIONS: Patient medications have been reviewed. REVIEW OF SYSTEMS: A 14-point review of systems was conducted. Pertinent positives in HPI, otherwi se negative. PHYSICAL EXAMINATION: VITAL SIGNS: Blood pressure 131/63, respirations 20, pulse 63, temperature 97.9. HEENT: Head is normocephalic. Pupils are reactive to light. NECK: Supple. HEART: Regular rate. LUNGS: Show diminished breath sounds at the base bilaterally. ABDOMEN: Soft, nontender to palpation. EXTREMITIES: Negative for clubbing, cyanosis. Trace edema. DERMATOLOGIC: No rashes. MUSCULOSKELETAL: No joint effusions. NEUROLOGIC: No focal deficits. LABORATORY DATA: Shows sodium 133, potassium 4.7, BUN 6, creatinine 3.13. White count 3.1, hemoglo bin 9.5, hematocrit 29.5, platelet count 150. Patient's x-rays were reviewed. Abdominal ultrasound reviewed. ASSESSMENT AND PLAN: This is a 71-year-old female who presents with: 1. Nonoliguric acute kidney injury on top of chronic kidney disease stage IV with previous baseline creatinine around 2 mg/dL. Etiology of current acute kidney injury is likely secondary to hemodyna mics from diuretic therapy with questionable tubular injury. Plan at this point is to check a urina lysis with microanalysis. Will check urine electrolytes, calculate fractional excretion of urea. W e will quantify any proteinuria. The patient's abdominal ultrasound was reviewed, showed no evidenc e of hydronephrosis. There is low suspicion for acute glomerulonephritis, vasculitis or interstitia l nephritis given the patient's clinical presentation. We will continue the patient on low-dose diu retic therapy of Bumex. Would otherwise recommend to continue supportive care, renally dose all med s, avoid nephrotoxins. Avoid significant hemodynamic fluctuations. Will continue to monitor closel y. 2. Hyponatremia, etiology secondary to acute kidney injury causing decreased free water urinary exc retion. Will limit free water intake and monitor. 3. Acute systolic, diastolic heart failure. Patient remains decompensated. Continue current diure tic regimen. Would recommend to allow patient's fluid to mobilize before re-escalating diuretics in the setting of worsening renal function. Would follow up with cardiology for further recommendatio ns. 4. Mineral bone disorder. Monitor calcium and phosphorus levels. No need for phos binders. 5. Anemia, pancytopenia, etiology is unclear. Workup ongoing. Follow up with hematology. 6. Coronary artery disease. Continue current medical management. 7. Hypertension. Continue current blood pressure regimen. 8. Aortic stenosis. 9. Dyslipidemia. Continue statin therapy. 10. Chronic atrial fibrillation. Continue current medical management. Rate is controlled. Thank you, Dr. Arana, for this interesting consultation. It will be a pleasure to follow sarah sandoval with you throughout the hospital course. Dictated By: CHRISTOPHER KIMBALL/CRAIG Conf#: [id number] DID#: [id number]
[2016-11-18 12:05] LABS: POTASSIUM 4.1 mmol/L (3.5-5.1)
[2016-11-18 12:07] LABS: CREATININE 3.18 mg/dl (0.44-1.00)
[2016-11-18 12:08] LABS: CALCIUM 9.2 mg/dl (8.4-10.2)
[2016-11-18 13:41] LABS: ADD UMIC YES; URINE BILIRUBIN (Dip) NEGATIVE (NEGATIVE); URINE BLOOD (Dip) TRACE (NEGATIVE); URINE COLOR LT. YELLOW (YELLOW); URINE GLUCOSE (Dip) NEGATIVE (NEGATIVE); URINE KETONES (Dip) NEGATIVE (NEGATIVE); URINE LEUKOCYTE ESTERASE (Dip) 3+ (NEGATIVE); URINE NITRITE (Dip) NEGATIVE (NEGATIVE); URINE TOTAL PROTEIN (Dip) 1+ (NEGATIVE); URINE UROBILINOGEN (Dip) 0.2 E.U./dL (0.1-1.0)
[2016-11-18 13:52] LABS: BACTERIA,URINE MODERATE; URINE RBCS 0-2 /HPF (0)
--- NOTE | 2016-11-18 13:54 | PDOCDIS ---
Discharge Instructions CONDITION Patient Condition: Guarded HOME CARE INSTRUCTIONS: Diet Instructions: Reduced SodiumSpecial Diet: 1800 ADA Diet ACTIVITY: Activity Restrictions: Slowly Increase Activity Bathing Restrictions: Tub Bath FOLLOW UP/APPOINTMENTS Appointments 11/25/[address] Dent 11/27/[address]Rabbani chamberlain11/29/2016 to SCHOOL/WORK RELEASE May return to School/Work with: no schooling. LAURA DENT MD Nov 18, 2016 13:54
--- NOTE | 2016-11-18 13:59 | DS ---
Date/Time of Note Date/Time of Note DATE: 11/18/16 TIME: 13:57 Discharge Summary Admission/Discharge Info Admit Date/Time Nov 08, 2016 at 23:12 Discharge Date/Time Final Diagnosis 1. Herpes zoster left gluteal area with prominent cellulitis-cont Valtrex for 5 more days. 2. History of coronary artery disease with coronary artery bypass grafting. 3. History of cardiac arrest, status post ruptured left anterior descending. 4. History of cardiac tamponade. 5. Hypertension-resistant with episodes of crisis . 6. Hyperlipidemia. 7. Atrial fibrillation-persists, rate controlled. 8. Chest pain, need to rule out acute coronary syndrome 9. Anemia of chronic disease-further decrease of hct and iron. 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 16.VDV and Hx of PE 17.Hx of having hemoptysis 18.Anxiety, depression with memory impairment 19.Diabetes mellitus type 2 20.CKD stage 3 with worsening after diuresis with atn-improving after iv fluids.creat=3 improving. 21.PMS 22.Constipation-getting worse. 23.Dizziness and ear noises 24.GARY 25.Severe muscular weakness 26.pleural effusion 27.Pulmonary effusion 28.systolic and diastolic hear failure worsened after improvement. Cont'd Hospitalization Reason: hyponatremia, anemia, chf. Cont'd Hospitalization Reason: zoster, anemia. acute on chronic renal failure. Refused bone marrow biop Hx of Present Illness After diuresis in ER significant improvement of BP and sob. Hospital Course PANCYTOPENIA WITH LEUKOPENIA SINCE 02.21 ANEMIA, CHRONIC , WITH COMPONENT ACD THROMBOCYTOPENIA- FROM 2014 MONITOR BLOOD COUNT CLOSELY OBSERVE FOR BLEEDING AND HEMOLYSIS ABD US- N BMBX- D/W DR GARCIA, HE IS IN AGREEMENT Bilateral pleural effusions. Acute on chronic combined systolic/diastolic heart failure - improved with diuresis Ischemic cardiomyopathy, LVEF 35-40% Coronary artery disease - history of myocardial infarction with coronary rupture and subsequent CABG Accelerated hypertension - blood pressures now improved and with hypotension Mild aortic stenosis Dyslipidemia Chronic atrial fibrillation Acute kidney injury on chronic kidney disease Home Meds Reported Medications Hydralazine Hcl* (Hydralazine Hcl*) 50 Mg Tab, 50 MG PO TID, #90 TAB 11/08/16 Ranolazine* (Ranexa*) 500 Mg Tab.sr.12h, 500 MG PO Q12, TAB 11/08/16 Ezetimibe* (Zetia*) 10 Mg Tablet, 10 MG PO DAILY, TAB 11/08/16 Pramipexole* (Pramipexole*) 0.25 Mg Tablet, 0.25 MG PO TID, TAB 11/08/16 Atorvastatin* (Atorvastatin*) 40 Mg Tablet, 40 MG PO QHS, #30 TAB 11/08/16 Warfarin Sodium* (Warfarin Sodium*) 4 Mg Tablet, 4 MG PO DAILY, TAB 11/08/16 Naproxen* (Naproxen*) 500 Mg Tablet, 500 MG PO BID, TAB 11/08/16 Metolazone* (Metolazone*) 10 Mg Tablet, 10 MG PO DAILY, TAB 11/08/16 Isosorbide Dinitrate* (Isordil*) 40 Mg Tablet, 40 MG PO BID, TAB 11/08/16 Clonidine Hcl* (Clonidine Hcl*) 0.2 Mg Tablet, 0.2 MG PO Q8 Y for PRN, TAB 11/08/16 Metoprolol Succinate* (Toprol XL*) 50 Mg Tab.er.24h, 50 MG PO DAILY, TAB 02/17/15 Fenofibrate Nanocrystallized* (Tricor*) 145 Mg Tablet, 145 MG PO DAILY 05/15/11 Pending Labs Laboratory Tests Test 11/17/16 21:30 11/18/16 06:06 11/18/16 13:15 Sodium Level 133mmol/L (135-144) 136mmol/L (135-144) Potassium Level 4.7mmol/L (3.5-5.1) 4.1mmol/L (3.5-5.1) Chloride Level 99mmol/L (97-110) 95mmol/L (97-110) Carbon Dioxide Level 30mmol/L (21-31) 30mmol/L (21-31) Anion Gap 9 (8-16) 15 (8-16) Blood Urea Nitrogen 61mg/dl (7-20) 64mg/dl (7-20) Creatinine 3.13mg/dl (0.44-1.00) 3.18mg/dl (0.44-1.00) Glucose Level 112mg/dl (70-220) 154mg/dl (70-220) Calcium Level 9.0mg/dl (8.4-10.2) 9.2mg/dl (8.4-10.2) Total Bilirubin 0.3mg/dl (0.2-1.3) Direct Bilirubin 0.00mg/dl (0.00-0.20) Indirect Bilirubin 0.3mg/dl (0-1.1) Aspartate Amino Transf (AST/SGOT) 20IU/L (15-46) Alanine Aminotransferase (ALT/SGPT) 23IU/L (13-69) Alkaline Phosphatase 70IU/L (42-121) Total Protein 6.4g/dl (6.1-8.1) Albumin 3.5g/dl (3.3-4.9) Globulin 2.90g/dl (1.3-3.2) Albumin/Globulin Ratio 1.20 Prothrombin Time 30.0Sec (12.2-14.2) Prothrombin Time Ratio 2.3 INR International Normalized Ratio 2.81 Urine Color LT. YELLOW (YELLOW) Urine Clarity SLIGHTLY CLOUDY (CLEAR) Urine pH 5.5 (5.0-9.0) Urine Specific [place] 1.020 (1.003-1.030) Urine Ketones NEGATIVE (NEGATIVE) Urine Nitrite NEGATIVE (NEGATIVE) Urine Bilirubin NEGATIVE (NEGATIVE) Urine Urobilinogen 0.2 E.U./dL (0.1-1.0) Urine Leukocyte Esterase 3+ (NEGATIVE) Urine Microscopic RBC 0-2/HPF (0) Urine Microscopic WBC 25-50/HPF (0) Urine Epithelial Cells OCCASIONAL Urine Bacteria MODERATE Urine Hemoglobin TRACE (NEGATIVE) Urine Glucose NEGATIVE% (NEGATIVE) Urine Total Protein 1+ (NEGATIVE) LAURA DENT MD Nov 18, 2016 13:59
[2016-11-18 14:15] LABS: PROTEIN URINE 55.6 mg/dl
--- NOTE | 2016-11-18 16:06 | CONS ---
Date/Time of Note Date/Time of Note DATE: 11/18/16 TIME: 16:04 Assessment/Plan Assessment/Plan Chief Complaint/Hosp Course Acute on chronic combined systolic/diastolic heart failure - EF 35%. Still with CHF but better. Ischemic cardiomyopathy, LVEF 35-40% Coronary artery disease - history of myocardial infarction with coronary rupture and subsequent CABG Acute kidney injury on chronic kidney disease: now stable ~3.2 but worse than admission Accelerated hypertension - controlled now Mild aortic stenosis Dyslipidemia Chronic atrial fibrillation: controlled rates. INR now therapeutic -bumex 1mg PO daily (can continue this or every other day dosing as outpt) -continue carvedilol 6.25mg BID -hydralazine 50 mg TID -Imdur 30mg daily -continue ranolazine 500mg BID -continue atorvastatin 40mg daily - ? need for Zetia and Tricor (will defer to outpatient quill reamer, Dr. Segovia) -continue warfarin with goal INR 2-3 Problems: Consultation Date/Type/Reason Admit Date/Time Nov 08, 2016 at 23:12 Initial Consult Date 11/10/16 Type of Consultation: Cardiology Referring Provider: LAURA DENT MD 24 HR Interval Summary Free Text/Dictation No o/n events. BP better. Still with SOB. Exam/Review of Systems Vital Signs Vitals Vital Signs Date Time Temp Pulse Resp B/P Pulse Ox O2 Delivery O2 Flow Rate FiO2 11/18/16 16:00 98.0 75 20 133/62 96 11/18/16 08:00 Nasal Cannula 2.0 11/14/16 22:00 21 Intake and Output 11/17/16 11/17/16 11/18/16 15:00 23:00 07:00 Intake Total 110 ml 980 ml 450 ml Output Total 1900 ml 1200 ml Balance 110 ml -920 ml -750 ml Exam Constitutional: alert, oriented Neck: jvd (8cm) Respiratory: crackles/rales, diminished breath sounds, No clear to auscultation Cardiovascular: edema (1+), No regular rate and rhythm Gastrointestinal: non-tender, soft Neurological: nl mental status, nl speech Results Result Diagram: 11/17/16 1027 11/18/16 0606 Results 24 hrs Laboratory Tests Test 11/17/16 21:30 11/18/16 06:06 4/11/17 13:15 Sodium Level 133 L 136 Potassium Level 4.7 4.1 Chloride Level 99 95 L Carbon Dioxide Level 30 30 Anion Gap 9 15 Blood Urea Nitrogen 61 H 64 H Creatinine 3.13 H 3.18 H Glucose Level 112 154 Calcium Level 9.0 9.2 Total Bilirubin 0.3 Direct Bilirubin 0.00 Indirect Bilirubin 0.3 Aspartate Amino Transf (AST/SGOT) 20 Alanine Aminotransferase (ALT/SGPT) 23 Alkaline Phosphatase 70 Total Protein 6.4 Albumin 3.5 Globulin 2.90 Albumin/Globulin Ratio 1.20 Prothrombin Time 30.0 H Prothrombin Time Ratio 2.3 INR International Normalized Ratio 2.81 Urine Color LT. YELLOW Urine Clarity SLIGHTLY CLOUDY Urine pH 5.5 Urine Specific [place] 1.020 Urine Ketones NEGATIVE Urine Nitrite NEGATIVE Urine Bilirubin NEGATIVE Urine Urobilinogen 0.2 E.U./dL Urine Leukocyte Esterase 3+ H Urine Microscopic RBC 0-2 Urine Microscopic WBC 25-50 Urine Epithelial Cells OCCASIONAL Urine Bacteria MODERATE Urine Hemoglobin TRACE Urine Random Creatinine 64.90 Urine Random Sodium 43 Urine Glucose NEGATIVE Urine Total Protein 55.6 Medications Medications Current Medications Atorvastatin Calcium (Lipitor) 40 mg QHS PO Last administered on 11/17/16 21: 10; Admin Dose 40 MG; Start 11/09/16 at 21:00 EZETIMIBE (Zetia) 10 mg DAILY PO Last administered on 11/18/16 09:43; Admin Dose 10 MG; Start 11/09/16 at 09:00 Fenofibrate (Tricor) 145 mg DAILY PO Last administered on 11/18/16 09:41; Admin Dose 145 MG; Start 11/09/16 at 09:00 Ranolazine (Ranexa) 500 mg Q12 PO Last administered on 11/18/16 09:42; Admin Dose 500 MG; Start 11/09/16 at 01:00 Pantoprazole (Protonix Tab) 40 mg DAILY@06 PO Last administered on 11/18/16 05 :31; Admin Dose 40 MG; Start 11/09/16 at 06:00 Warfarin Sodium (Coumadin) 4 mg DAILY@17 PO Last administered on 11/14/16 17:34 ; Admin Dose 4 MG; Start 11/09/16 at 17:00; Status Future hold Carvedilol (Coreg) 6.25 mg BID PO Last administered on 11/17/16 21:11; Admin Dose 6.25 MG; Start 11/09/16 at 21:00 Isosorbide Mononitrate (Imdur) 30 mg DAILY PO Last administered on 11/18/16 09 :43; Admin Dose 30 MG; Start 11/10/16 at 09:00 Hydralazine HCl (Apresoline) 10 mg Q4H PRN IV SBP>160 Last administered on 11/17 03:29; Admin Dose 10 MG; Start 11/09/16 at 17:30 Docusate Sodium (Colace) 100 mg BID PO Last administered on 11/18/16 09:40; Admin Dose 100 MG; Start 11/12/16 at 21:00 Polyethylene Glycol (Miralax) 17 gm BID PO Last administered on 11/18/16 09:41 ; Admin Dose 17 GM; Start 11/12/16 at 16:00 Bisacodyl 10 mg 10 mg DAILY CO Last administered on 11/13/16 14:07; Admin Dose 10 MG; Start 11/13/16 at 10:00 Ferric Sodium Gluconate Complex/ Sodium Chloride (Ferrlecit/NS) 110 ml @ 100 mls/hr Q24H IVPB Last administered on 11/17/16 11:25; Admin Dose 100 MLS/HR; Start 11/16/16 at 17:00; Stop 11/18/16 at 18:05 Hydralazine HCl (Apresoline) 50 mg TID PO Last administered on 11/18/16 13:19 ; Admin Dose 50 MG; Start 11/17/16 at 21:00 Bumetanide (Bumex) 1 mg DAILY PO Last administered on 11/18/16 09:41; Admin Dose 1 MG; Start 11/17/16 at 14:30 Carvedilol (Coreg) 3.125 mg BID PRN PO if SBP between 101-135mm HG;; Start at 21:00 Valacyclovir HCl (Valtrex) 500 mg BID PO Last administered on 11/18/16 09:40; Admin Dose 500 MG; Start 11/17/16 at 21:00 ADEN GRAVES Nov 18, 2016 16:06
--- NOTE | 2016-11-18 21:45 | CONS ---
Date/Time of Note Date/Time of Note DATE: 11/18/16 TIME: 15:43 Assessment/Plan Assessment/Plan Chief Complaint/Hosp Course PANCYTOPENIA WITH LEUKOPENIA SINCE 02.21 ANEMIA, CHRONIC , WITH COMPONENT ACD THROMBOCYTOPENIA- FROM 2014 MONITOR BLOOD COUNT CLOSELY OBSERVE FOR BLEEDING AND HEMOLYSIS ABD US- N BMBX- D/W DR GARCIA, HE IS IN AGREEMENT PT REFUSING BMBX FOR NOW Bilateral pleural effusions. Acute on chronic combined systolic/diastolic heart failure - improved with diuresis Ischemic cardiomyopathy, LVEF 35-40% Coronary artery disease - history of myocardial infarction with coronary rupture and subsequent CABG Accelerated hypertension - blood pressures now improved and with hypotension Mild aortic stenosis Dyslipidemia Chronic atrial fibrillation Acute kidney injury on chronic kidney disease Problems: Consultation Date/Type/Reason Admit Date/Time Nov 08, 2016 at 23:12 Type of Consultation: [facility] Referring Provider: LAURA DENT MD 24 HR Interval Summary Free Text/Dictation The patient clinically improving, continues to complain of weakness and general fatigue. Exam/Review of Systems Vital Signs Vitals Vital Signs Date Time Temp Pulse Resp B/P Pulse Ox O2 Delivery O2 Flow Rate FiO2 11/18/16 16:05 63 11/18/16 16:00 98.0 20 133/62 96 11/18/16 08:00 Nasal Cannula 2.0 11/14/16 22:00 21 Intake and Output 11/17/16 11/17/16 11/18/16 15:00 23:00 07:00 Intake Total 110 ml 980 ml 450 ml Output Total 1900 ml 1200 ml Balance 110 ml -920 ml -750 ml Exam PHYSICAL EXAMINATION: HEENT: Head is normocephalic. Pupils are reactive to light. NECK: Supple. HEART: Regular rate. LUNGS: Show diminished breath sounds at the base bilaterally. ABDOMEN: Soft, nontender to palpation. EXTREMITIES: Negative for clubbing, cyanosis. Trace edema. DERMATOLOGIC: No rashes. MUSCULOSKELETAL: No joint effusions. NEUROLOGIC: No focal deficits. Results Result Diagram: 11/17/16 1027 11/18/16 0606 Results 24 hrs Laboratory Tests Test 11/18/16 06:06 11/18/16 13:15 Prothrombin Time 30.0 H Prothrombin Time Ratio 2.3 INR International Normalized Ratio 2.81 Sodium Level 136 Potassium Level 4.1 Chloride Level 95 L Carbon Dioxide Level 30 Anion Gap 15 Blood Urea Nitrogen 64 H Creatinine 3.18 H Glucose Level 154 Calcium Level 9.2 Urine Color LT. YELLOW Urine Clarity SLIGHTLY CLOUDY Urine pH 5.5 Urine Specific [place] 1.020 Urine Ketones NEGATIVE Urine Nitrite NEGATIVE Urine Bilirubin NEGATIVE Urine Urobilinogen 0.2 E.U./dL Urine Leukocyte Esterase 3+ H Urine Microscopic RBC 0-2 Urine Microscopic WBC 25-50 Urine Epithelial Cells OCCASIONAL Urine Bacteria MODERATE Urine Hemoglobin TRACE Urine Random Creatinine 64.90 Urine Random Sodium 43 Urine Glucose NEGATIVE Urine Total Protein 55.6 MANDIE MALAVE MD Nov 18, 2016 21:45
[2016-11-19 15:39] LABS: MICROALBUMIN 30.3 mg/dL
[2016-11-20 22:55] LABS: VARICELLA-ZOSTER VIRUS AB IgG 966.1 INDEX (<= 0.90)
[2016-11-20 23:03] LABS: VARICELLA-ZOSTER VIRUS AB IgM 0.16
== END 2016-11-18 17:49 | disposition home or self-care (01) | DRG 291 ==
LOC: E/R 21:54 → MS4 23:12
PROVIDERS: ADMIT Family Medicine; ATTEND Family Medicine
DX: I13.0 Hypertensive heart and chronic kidney disease with heart failure and stage 1 through stage 4 chronic kidney disease, or unspecified chronic kidney disease (principal); I50.43 Acute on chronic combined systolic (congestive) and diastolic (congestive) heart failure; N17.9 Acute kidney failure, unspecified; D61.818 Other pancytopenia; N18.3 Chronic kidney disease, stage 3 (moderate); E11.22 Type 2 diabetes mellitus with diabetic chronic kidney disease; E11.51 Type 2 diabetes mellitus with diabetic peripheral angiopathy without gangrene; L03.317 Cellulitis of buttock; B02.9 Zoster without complications; I48.2 Chronic atrial fibrillation; D63.8 Anemia in other chronic diseases classified elsewhere; I25.10 Atherosclerotic heart disease of native coronary artery without angina pectoris; Z95.1 Presence of aortocoronary bypass graft; Z86.718 Personal history of other venous thrombosis and embolism; I27.2 Other secondary pulmonary hypertension; Z86.74 Personal history of sudden cardiac arrest; M81.0 Age-related osteoporosis without current pathological fracture; E78.5 Hyperlipidemia, unspecified; M19.90 Unspecified osteoarthritis, unspecified site; F41.9 Anxiety disorder, unspecified; Z87.440 Personal history of urinary (tract) infections; Z86.711 Personal history of pulmonary embolism; F32.9 Major depressive disorder, single episode, unspecified; R41.3 Other amnesia; K59.00 Constipation, unspecified; R42 Dizziness and giddiness; M62.81 Muscle weakness (generalized); Z91.19 Patient's noncompliance with other medical treatment and regimen; Z98.61 Coronary angioplasty status; K21.9 Gastro-esophageal reflux disease without esophagitis; I25.2 Old myocardial infarction; I25.5 Ischemic cardiomyopathy; I35.0 Nonrheumatic aortic (valve) stenosis; R33.9 Retention of urine, unspecified; Z91.81 History of falling; E83.89 Other disorders of mineral metabolism
CPT/HCPCS: 36415; 71010; 76700; 80048; 80053; 80162; 80307; 81001; 81003; 82043; 82270; 82306; 82378; 82607; 82728; 82962; 83540; 83615; 83690; 83735; 83880; 84155; 84165; 84300; 84443; 84484; 84560; 85025; 85045; 85378; 85610; 85651; 93005; 93306; 93970; 94640; 94664; 96374; 96375; 97110; 97116; 97162; 97530; J0360; J1940; J2916; J3480; J7030